=== PATIENT | female | born 1955 | race Caucasian/White ===

== ENCOUNTER 2017-10-26 22:56 | Emergency (ER) | payer BC, SELFPAY ==
[2017-10-26 22:57] VITALS: BP 157/104; PULSE 109; RESP 20; TEMP 36.6; O2SAT 100; BMI 25.7
--- NOTE | 2017-10-26 23:11 | US_ITS ---
STUDY: ABDOMINAL ULTRASOUND - RIGHT UPPER QUADRANT REASON FOR VISIT: Female, 62 years old. Right upper quadrant pain. TECHNIQUE: Ultrasound evaluation of the right upper quadrant was performed with real-time and static callahan-scale imaging. TECHNICAL QUALITY: Adequate. Examination limited by bowel gas. COMPARISON: None. FINDINGS: Liver: The liver measures 16 cm. There is normal echogenicity of the liver. The bile ducts are within normal limits. There is hepatic color flow. The direction of portal flow is hepatopetal. There is no demonstrated mass lesion. Gallbladder: Normal distended gallbladder. The gallbladder wall measures 2.4 mm. There is a positive sonographic Mendoza's sign, according to the histology technologist notes. There is pericholecystic fluid. There are multiple gallstones. Common Bile Duct (C.B.D.): The common bile duct measures 4.4 mm. Pancreas: Normal size of the visualized pancreas. The tail of the pancreas is largely obscured. There is normal echogenicity of the pancreas. There is no demonstrated pancreatic mass or cyst. Right Kidney: Normal size of the right kidney. The right kidney measures 9.9 x 4.3 x 2.8 cm. Normal renal cortex. The right cortex measures 1.2 cm. There is no demonstrated renal mass or cyst. There is no right hydronephrosis. US/Gallbladder IMPRESSION: Multiple gallstones. A small amount of pericholecystic fluid is present and there is a reportedly positive sonographic Mendoza sign, suggesting cystitis. No bile duct dilatation. Electronically Signed: Sacha Hope MD at 0:56 EDT , Service support ,
[2017-10-26 23:25] LABS: Absolute Lymphocyte Count 3.88 X10^3/ul (0.83-4.51); Absolute Neutrophil Count 3.1 X10^3/uL (2.0-7.7); Basophil# 0.06 X10^3/uL; Basophil% 0.8 % (0-1); Eosinophil# 0.17 X10^3/uL; Eosinophils% 2.2 % (0-5); Hematocrit 37.3 % (37-47); Hemoglobin 12.5 g/dl (12.0-15.0); Lymphocyte # 3.88 X10^3/ul (4.0); Lymphocyte % 49.4 % (19-41); Mean Corp Hgb Conc 33.5 g/gl (32-36); Mean Corpuscular Hgb 29.5 pg (27.0-32.0); Mean Platelet Vol. 10.2 fl (6.2-12.0); Monocyte# 0.61 X10^3/uL; Monocyte% 7.8 % (0-10); Neutrophil # 3.13 X10^3/uL (2.7-7.7); Neutrophil % 39.7 % (47-70); Platelet Count 259 K/mm3 (150-450); RBC Distribution Width CV 12.9 % (11.6-14.6); RBC Distribution Width SD 41.6 fl (35.1-43.9); Red Blood Count 4.24 M/mm3 (4.2-5.4); White Blood Count 7.9 K/mm3 (4.4-11.0)
[2017-10-26] MEDS: Ondansetron 4 MG/2 ML Vial IV (23:28)
[2017-10-26 23:31] LABS: POSITIVE COUNT NO; POSITIVE DIFFERENTIAL NO; POSITIVE MORPHOLOGY NO
--- NOTE | 2017-10-26 23:35 | ED.DCSUM_ITS ---
- ER Visit Summary Date of Service: 10/26/17 Chief Complaint: Abdominal pain History of Present Illness: The patient is a 62 F presenting with right upper quadrant abdominal pain which began 2-3 hours ago. Patient states she was eating fried shrimp and began having pain in her right upper quadrant. She states she has been diagnosed with gallstones in the past. She denies nausea, vomiting, diarrhea. Denies fever. Denies other complaints. Physical Examination: Vitals are stable. Patient is afebrile. Alert no acute distress. HEENT exam is unremarkable. Neck is supple. Lungs are clear and equal bilaterally. Heart is regular rate and rhythm. Abdomen is soft right upper quadrant tenderness, no rebound or guarding. Extremities are unremarkable. Skin is warm and dry. No focal neurologic deficit. Remainder of exam is unremarkable. Emergency Department Course and Treatment: Patient is given morphine, Zofran, IV fluids. CBC, chemistries unremarkable. Liver lipase are normal. Ultrasound of gallbladder shows multiple gallstones. A small amount of pericholecystic fluid is present and there is a reportedly positive sonographic Mendoza sign, suggesting cystitis. No bile duct dilatation. Patient states her pain has resolved. Findings were discussed with Dr. Obrien. He will see her for close outpatient follow-up. She is given a prescription for [place]. Advised return to ED for worsening complaints. Disposition: Discharge home Impression: Abdominal pain, cholelithiasis This note was generated with [employer] dictation software. It may contain incorrect words, spelling, and punctuation that were not noted in review of the chart prior to signing ED Disposition - Plan for ED Patient: Chief Complaint: Abd Pain Referrals: Alysa Donovan MD [Primary Care Provider] -
[2017-10-26 23:45] LABS: AST(SGOT) 17 U/L (15-37); Alanine Aminotransfer ALT/SGPT 26 U/L (13-56); Albumin, Serum 4.1 g/dL (3.2-5.0); Alkaline Phosphatase 90 U/L (45-117); Anion Gap 8 (5-15); BUN 15 mg/dL (7-18); Bilirubin, Direct 0.08 mg/dL (0.00-0.30); Calcium,Total 8.7 mg/dL (8.5-10.1); Chloride 110 mmol/L (98-107); Creatinine, Serum 0.72 mg/dL (0.55-1.02); EST Glomerular Filtration Rate 88 mL/min (>60); Est Glom Filt Rate - Afr Amer 107 mL/min (>60); Estimated Creatinine Clearance 61.92 ml/min; Globulin 3.7 g/dL (2.2-4.2); Glucose 96 mg/dL (74-106); Lipase 157 U/L (73-393); Potassium 3.8 mmol/L (3.5-5.1); Protein, Total 7.8 g/dL (6.4-8.2); Sodium Level 144 mmol/L (136-145)
--- NOTE | 2017-10-27 01:44 | ED.DEP ---
ED Disposition - Plan for ED Patient: Chief Complaint: Abd Pain Instructions: ED Abdominal Pain Gallstone Poss Prescriptions: Hydrocodone Bitart/Apap 5-325 [[place] 5/325] 1 tablet PO Q6H PRN PRN 3 Days #12 tablet PRN Reason: Pain Referrals: Alysa Donovan MD [Primary Care Provider] - Carlos Obrien MD [STAFF PHYSICIAN] -
--- NOTE | 2017-10-27 01:47 | DCINST.ED_ITS ---
ED Disposition - Plan for ED Patient: Chief Complaint: Abd Pain Instructions: ED Abdominal Pain Gallstone Poss Prescriptions: Hydrocodone Bitart/Apap 5-325 [[place] 5/325] 1 tablet PO Q6H PRN PRN 3 Days #12 tablet PRN Reason: Pain Referrals: Alysa Donovan MD [Primary Care Provider] - Carlos Obrien MD [STAFF PHYSICIAN] -
[2017-10-27] MEDS: HYDROcodone Bitartrate/Apap 5/325 Tablet PO (01:50)
[2017-10-27 01:54] VITALS: BP 166/80; PULSE 88; RESP 16; O2SAT 100
== END 2017-10-27 01:55 | disposition home or self-care (01) ==
LOC: ED 10-27 00:07
PROVIDERS: Emergency Provider Emergency Medicine; Family Provider Internal Medicine; PCP Internal Medicine
DX: K80.20 Calculus of gallbladder without cholecystitis without obstruction (principal); K21.9 Gastro-esophageal reflux disease without esophagitis; E07.9 Disorder of thyroid, unspecified
CPT/HCPCS: 76705; 80048; 80076; 83690; 85025; 96361; 96374; 96375; 96376; 99283; J7030; J7040; A4216; J2405

== ENCOUNTER 2017-11-02 05:54 | Day surgery (SDC) | payer BC, SELFPAY ==
[2017-11-02] VITALS (9 sets, daily range): BP systolic 114–152; BP diastolic 51–80; PULSE 52–99; RESP 16; TEMP 36.4–37.2; O2SAT 92–99; BMI 24.6
--- NOTE | 2017-11-02 06:08 | EKG12_ITS ---
Test Reason : PRE OP Blood Pressure : / mmHG Vent. Rate : 090 BPM Atrial Rate : 090 BPM P-R Int : 126 ms QRS Dur : 084 ms QT Int : 378 ms P-R-T Axes : 068 041 048 degrees QTc Int : 462 ms Sinus rhythm with frequent Premature ventricular complexes Nonspecific ST abnormality Abnormal ECG Confirmed by HOMER SAMANO, VONDA ([id number]), commissioning editor JULIANA LEE ([id number]) on 11/04/2017 2:57:30 PM Referred By: Rosalee Vann Confirmed By:VONDA CORONEL MD
--- NOTE | 2017-11-02 07:27 | PCM.DC.GB ---
Discharge Diet: No Restrictions Discharge Activity: Return to Normal Activity, May not drive while taking narcotic pain medications. Lifting Restrictions: no lifting greater than 20 pounds for 2 weeks Call your doctor if your incision/area has: Continuous Slow Oozing, Foul Smelling Discharge Call your doctor if you observe: Fever of 101 or Higher Additional Dressing/Incision Instructions:: Leave dressings in place. May get wet in shower. Do not soak - no tub baths/swimming Allergies/Adverse Reactions: Allergies No Known Allergies Allergy (Verified 10/31/17 08:04) Medications to take at Discharge Levothyroxine [Synthroid] 75 mcg PO DAILY 11/02/13 Amitriptyline HCl [Amitriptyline HCl] 10 mg PO DAILY 10/26/17 Pantoprazole Sodium [Protonix] 20 mg PO DAILY 10/26/17 Hydrocodone Bitart/Apap 5-325 [[place] 5/325] 1 tablet PO Q6H PRN PRN 3 Days #12 tablet 10/27/17 Primary Care Physician: Alysa Donovan MD [Primary Care Provider] - Please Follow Up With: Rosalee Vann MD - call When: to be seen in 7-10 days, please call for date and time, thank you
--- NOTE | 2017-11-02 07:29 | PCM.IMDPSTOP ---
Immediate Post-Op Note Date of Procedure: 11/02/17 Primary Surgeon/Physician: Rosalee Vann applications support engineer: NOT,DEFINED Pre-Operative Diagnosis: cholelithiasis, abdominal pain Post-Operative Diagnosis: same Surgery/Procedure Performed:: laparoscopic cholecystectomy with intraoperative cholangiograms Description of Surgical Findings:: intraoperative cholangiograms - Estimated Blood Loss: < 5 ml Specimen's removed: gallbladder and contents Type of Anesthesia:: General ASA Class: ASA2 Mod Systematic Disease - Admit VTE Documentation VTE Present on Admission: Yes VTE Mechan Device Prophylaxis: SCD's
--- NOTE | 2017-11-02 07:30 | GALL_PTH ---
PATIENT: ARNOL JASON LOC: [facility] [place] U#:[id number] AGE/SX: 62/F ROOM: RE11/02/[address]: Dr. Rosalee Vann MD : [id number] BED: DIS: 11/02/2017 SPEC #: [id number] RECD: 11/02/17 10:55 STATUS: KIRILL RELester #: [id number] CORY: 11/02/17 07:[address]: Rosalee Vann DEPT: SURGICAL PATHOLOGY RECD BY: Jethro Walden ENTERED: 11/02/17 11:42 SP TYPE: OLIVIER RASMUSSEN DR: Dr. Alysa Donovan MD Tissues: Gallbladder, NOS Procedures: Surgery Specimen Level III HEADER OPERATION: Laparoscopic, cholecystectomy with intraoperative cholangiograms PRE-OP DIAGNOSIS: Cholecystitis, cholelithiasis without biliary obstruction TISSUE SUBMITTED: Gallbladder MICROSCOPIC DIAGNOSIS Gallbladder: Chronic cholecystitis, cholelithiasis and focal cholesterolosis. SJ:imer 11/03/17 MICROSCOPIC DESCRIPTION Slides are reviewed. GROSS DESCRIPTION Received is one container labeled with the patient's name and designated gallbladder. The specimen consists of a gallbladder measuring 9.5 x 2.5 x 2.5 cm. The external surface is smooth and glistening. Focally, it is granular, hemorrhagic and contains cautery artifact. The lumen of the gallbladder contains greenish mucoid bile and multiple chalky, yellow calculi ranging in size from <0.1 to 1.5 cm in greatest dimension. The mucosa is bile-stained and without any mass lesions. The gallbladder wall averages 0.1 cm in thickness and is free of mass lesions. Invoice Coder sections of the gallbladder and the cystic duct are submitted in one cassette. / AM:imer 11/02/17 TC:3 CPT: 75553
--- NOTE | 2017-11-02 07:55 | RAD_ITS ---
STUDY: INTRAOPERATIVE CHOLANGIOGRAM. REASON FOR EXAM: Female, 62 years old. Laparoscopic cholecystectomy. FLUOROSCOPY TIME (if supplied): (2 seconds) minutes/seconds TECHNIQUE: An intraoperative cholangiogram was performed by the surgeon. A single image was submitted. COMPARISON: None. FINDINGS: The common bile duct is unremarkable. No intraluminal filling defect is seen. There is free flow of contrast into the duodenum. The visualized pancreatic duct is unremarkable. RAD/Cholangiogram/ O R,Initial IMPRESSION: Unremarkable intraoperative cholangiogram. Electronically Signed: Lobito Goodson MD at 10:42 EDT Tel [phone], Service support ,
--- NOTE | 2017-11-02 08:36 | OP.PCM_ITS ---
Report of Operation Date of Procedure: 11/02/17 Pre-Operative Diagnosis: cholelithiasis, abdominal pain Post-Operative Diagnosis: same Surgery/Procedure Performed:: laparoscopic cholecystectomy with intraoperative cholangiograms Description of Surgical Findings:: intraoperative cholangiograms - normal application development liaison: NOT,ALIDA - Radhika Jorge Type of Anesthesia:: General Anesthesiologist: Lopez Langston Specimen's removed: gallbladder and contents Drains: none Estimated Blood Loss (mL): < 5 ml Fluids Replaced: 700 cc RL Description of Procedure: After informed consent was given, the patient was brought to the Operating Room and placed in the supine position. Appropriate time out protocol was followed. The patient was then placed under general endotracheal anesthesia. The abdomen was then prepped with a sterile surgical skin preparation and sterile surgical drapes were placed. The periaumbilical skin fold was grasped with penetrating clamps and the skin and subcutaneous tissues were infiltrated with local anesthetic. A skin incision was then made with a 15 blade scalpel. The anterior abdominal wall was elevated and a Veress needle was carefully inserted into the intraabdominal cavity. It was checked to be in the proper position with a normal saline drop test. A CO2 pneumoperitoneum was then created. Once this was achieved, then the Veress needle was removed and an 11mm trocar was placed in its stead. A 10mm laparoscope was then inserted into the trocar and careful attention was directed to the intraabdominal contents. There was no evidence of injury to any intraabdominal organs from insertion of the Veress needle or the trocar. Under direct visualization, a 5mm subxiphoid trocar and two lateral 5mm right subcostal trocars were placed. The skin and subcutaneous tissues at these sites were infiltrated with local anesthetic prior to placement of these trocars. Attention was then directed to the right upper quadrant of the abdomen. The gallbladder had some omental adehsions that were taken down by sharp dissection. Any hemorrhage was controlled with electrocautery. Graspers were placed in the lateral trocars to grasp the distal aspect of the gallbladder and direct it cephalad and to grasp the gallbladder at Persaud?s pouch and direct it laterally. Dissection then began on the proximal gallbladder continuing down to the area of the triangle of Calot to bluntly dissect out the cystic duct. The neck of the gallbladder was identified and blunt dissection continued to dissect out a segment of the cystic duct. A clip was then placed on the neck of the gallbladder. A small ductotomy was then made. A Ranfac catheter was brought in through a separate skin incision and placed into the cystic duct. An intraoperative cholangiogram was performed under fluoroscopy. The xray revealed no lesions in the common bile duct, arborization of the biliary tree, and good flow into the duodenum. The cholangiograms was read by me as normal. The Ranfac catheter was then removed and two clips were placed proximal to the ductotomy and the cystic duct was then transected. The cystic artery was visualized and bluntly isolated and then two clips were placed proximally and one clip distally and then it was transected between the proximal and distal clips. The gallbladder was then from the liver bed using electrocautery and thus able to be brought out of the umbilical port. It was then forwarded to pathology for analysis. The liver bed was carefully examined. There was no evidence of bile leakage or bleeding. The cystic duct stump and cystic artery stump had their clips intact and there was no evidence of bile leakage or bleeding. The remainder of the abdomen was grossly normal. The CO2 was released and all trocars removed intact. The periumbilical fascia was approximated with a [id number] 0 vicryl suture. All skin incision were closed with 4-0 monocryl in a subdermal fashion. Cavilol and Steristrips were used to reinforce the skin closure. Sterile dressings were applied to all wounds. The patient was extubated and brought to the Recovery Room in stable condition. - Complications none noted - Admit VTE Documentation VTE Present on Admission: Yes VTE Mechan Device Prophylaxis: SCD's
[2017-11-02] MEDS: Bupiv/Epi 0.5% Mpf 30 ML Vial (08:37)
[2017-11-02] MEDS: HYDROcodone Bitartrate/Apap 5/325 Tablet PO (10:31)
[2017-11-02] MEDS: Morphine 4 MG/ML Syringe IV (11:35)
== END 2017-11-02 13:05 | disposition home or self-care (01) ==
LOC: SDC 05:54 → AC 05:57
PROVIDERS: Family Provider Internal Medicine; PCP Internal Medicine; Visit Provider Surgery
PROC: (CPT 47610; principal; 2017-11-02 07:10)
DX: K80.12 Calculus of gallbladder with acute and chronic cholecystitis without obstruction (principal); K21.9 Gastro-esophageal reflux disease without esophagitis; E03.9 Hypothyroidism, unspecified; M79.7 Fibromyalgia; F41.9 Anxiety disorder, unspecified; Z79.899 Other long term (current) drug therapy
CPT/HCPCS: 47563; 74300; 76000; 88304; 93005; J7050; J7120; J2405

== ENCOUNTER 2018-01-07 09:08 | Emergency (ER) | payer BC, SELFPAY ==
[2018-01-07 09:09] VITALS: BP 122/87; PULSE 114; RESP 16; TEMP 37.2; O2SAT 100; BMI 24.5
[2018-01-07 09:14] VITALS: O2SAT 98
--- NOTE | 2018-01-07 09:17 | EKG12_ITS ---
Test Reason : SOB Blood Pressure : / mmHG Vent. Rate : 090 BPM Atrial Rate : 090 BPM P-R Int : 122 ms QRS Dur : 082 ms QT Int : 366 ms P-R-T Axes : 057 037 044 degrees QTc Int : 447 ms Normal sinus rhythm Nonspecific ST abnormality Abnormal ECG Confirmed by LESTER SAMANO, SARA ([id number]), news editor JULIANA LEE ([id number]) on 01/11/2018 2:15:56 PM Referred By: DANIA/JOSE Confirmed By:SARA BATISTA MD
--- NOTE | 2018-01-07 09:32 | ED.DCSUM_ITS ---
- ER Visit Summary Date of Service: 01/07/18 Chief Complaint: [] Chest pain rapid heart beating for 4-6 weeks History of Present Illness: The patient is a 62 F [] she reports about 6 weeks ago she had an uncomplicated cholecystectomy, she reports since that time she has had chest pressure fullness and rapid heart beating it is worse when she exerts herself, she had an episode this morning her heart was racing she had more chest pressure and she came to the emergency department she currently complains of very mild fullness in her chest she is having on the monitor runs of PVCs her vital signs otherwise unremarkable, she indicates she has no history of AL PE or DVT, she has no history of high cholesterol diabetes or hypertension, she believes she had a cardiac stress test in 2010 that was unremarkable Physical Examination: [] She is resting comfortably in the bed her vital signs are within normal range again she will have 3-4 beat runs of PVCs, her HEENT exam is unremarkable her lungs are clear the heart tones are generally regular except as above no murmur the abdomen is soft nontender upper lower extremities unremarkable neurologic she is awake moving all 4 Test Results: [] Emergency Department Course and Treatment: [] Ventral is rather extensive EKG shows a sinus rhythm nothing acute nonspecific changes old EKG pending valuation is pursued Treatment Plan: [] Patient's lab studies are all generally unremarkable see those reports the EKG showed a sinus rhythm nothing acute prior EKG showed similar changes and frequent PVCs, CTA of the chest showed nothing acute see those reports on reevaluation is resting comfortably she is no longer having any PVCs on the monitor I explained the concept of occult cardiac disease, sudden , she understands and she does have a family history with both parents having CAD, I discussed admission for further management and the concept of again of sudden she states she understands she is clearly able to read back to me my concerns family is her in the room however she states she refers outpatient management and she does agree to take aspirin every day and follow with Dr. Bhagat her rayon tester next week and return if her symptoms change or intensified anyway, I have paged Dr. Bhagat will discuss the case with him make him aware of the above and at her request discharge her for outpatient management Speak with Dr. Bhagat he would like a magnesium level checked if this is normal he would like her started on 25 mg Lopressor twice daily he will see her in the office shortly Disposition: [] Home stable refused admission Impression: []chest Pain frequent PVCs This note was generated with [employer] dictation software. It may contain incorrect words, spelling, and punctuation that were not noted in review of the chart prior to signing ED Disposition - Plan for ED Patient: Chief Complaint: Shortness of Breath Instructions: ED Chest Pain Atypical Unkn Cause Referrals: Alysa Donovan MD [Primary Care Provider] - Haseeb Baker MD [STAFF PHYSICIAN] -
--- NOTE | 2018-01-07 09:32 | CT_ITS ---
STUDY: CTA CHEST REASON FOR EXAM: Female, 62 years old. Right-sided shoulder pain for 2 months. Patient has chest pain. RADIATION DOSAGE (If Supplied By Facility): CTDIvol = ( 6.38 ) mGy, DLP = ( 227.73 ) mGycm TECHNIQUE: The examination was performed with the intravenous administration of 75 ml of Isovue 370 contrast material. Post-processing of the angiographic images was performed, with multiplanar reformation and 3D reconstruction. Individualized dose optimization techniques were used for this CT. COMPARISON: Prior comparison studies are not available for review at this time. FINDINGS: Normal enhancement of the main pulmonary artery and right and left pulmonary arteries. Normal enhancement of the bilateral peripheral pulmonary arteries. There is no demonstrated pulmonary embolism. There is atherosclerotic tortuosity of the aortic arch and descending thoracic aorta. There is no demonstrated aortic dissection. Normal heart and pericardium. Normal mediastinum. Normal hilar regions. Normal visualized trachea and bronchi. The lungs are well expanded. Normal pulmonary parenchyma. Normal pleura. Normal chest wall structures. Normal osseous structures. There is a small hiatal hernia. CT/CTA Chest W/WO Contrast IMPRESSION: No CTA demonstrated pulmonary embolism or arterial dissection. Electronically Signed: Verenice Cruz MD at 11:35 EDT , Service support ,
[2018-01-07 10:05] LABS: Absolute Lymphocyte Count 3.58 X10^3/ul (0.83-4.51); Absolute Neutrophil Count 3.1 X10^3/uL (2.0-7.7); Basophil# 0.05 X10^3/uL; Basophil% 0.7 % (0-1); Eosinophil# 0.09 X10^3/uL; Eosinophils% 1.2 % (0-5); Hematocrit 39.7 % (37-47); Hemoglobin 13.6 g/dl (12.0-15.0); Lymphocyte # 3.58 X10^3/ul (4.0); Mean Corp Hgb Conc 34.3 g/gl (32-36); Mean Corpuscular Hgb 29.4 pg (27.0-32.0); Mean Corpuscular Volume 85.7 fL (81-99); Mean Platelet Vol. 10.3 fl (6.2-12.0); Monocyte# 0.64 X10^3/uL; Monocyte% 8.6 % (0-10); Neutrophil # 3.09 X10^3/uL (2.7-7.7); Neutrophil % 41.4 % (47-70); Platelet Count 298 K/mm3 (150-450); RBC Distribution Width SD 40.9 fl (35.1-43.9); Red Blood Count 4.63 M/mm3 (4.2-5.4); White Blood Count 7.5 K/mm3 (4.4-11.0)
[2018-01-07 10:06] LABS: POSITIVE COUNT NO; POSITIVE DIFFERENTIAL NO; POSITIVE MORPHOLOGY NO
[2018-01-07 10:09] VITALS: BP 148/64; PULSE 74; RESP 16; O2SAT 97
[2018-01-07 10:36] LABS: Anion Gap 11 (5-15); BUN 17 mg/dL (7-18); Calcium,Total 9.3 mg/dL (8.5-10.1); Chloride 107 mmol/L (98-107); Creatinine, Serum 0.89 mg/dL (0.55-1.02); EST Glomerular Filtration Rate 68 mL/min (>60); Est Glom Filt Rate - Afr Amer 82 mL/min (>60); Estimated Creatinine Clearance 50.09 ml/min; Glucose 93 mg/dL (74-106); Sodium Level 142 mmol/L (136-145)
[2018-01-07 10:42] LABS: BNP,B-Type NATRIURETIC PEPTIDE 15.4 pg/mL (0-100)
--- NOTE | 2018-01-07 12:08 | ED.DEP ---
ED Disposition - Plan for ED Patient: Chief Complaint: Shortness of Breath Instructions: ED Chest Pain Atypical Unkn Cause Referrals: Alysa Donovan MD [Primary Care Provider] - Haseeb Baker MD [STAFF PHYSICIAN] -
[2018-01-07 12:15] VITALS: BP 140/64; PULSE 80; RESP 16; O2SAT 97
--- NOTE | 2018-01-07 12:30 | ED.DEP ---
ED Disposition - Plan for ED Patient: Chief Complaint: Shortness of Breath Instructions: ED Chest Pain Atypical Unkn Cause Prescriptions: Metoprolol Tartrate [Lopressor (Beta Shikha)] 25 mg PO BID #20 tab Referrals: Alysa Donovan MD [Primary Care Provider] - Haseeb Baker MD [STAFF PHYSICIAN] -
[2018-01-07 13:18] LABS: Magnesium 2.2 mg/dL (1.6-2.6)
[2018-01-07 13:21] VITALS: BP 152/69; PULSE 80; RESP 20; O2SAT 98
[2018-01-07] MEDS: Metoprolol Tartrate 25 MG Tablet PO (13:59)
[2018-01-07 14:02] VITALS: BP 141/68; PULSE 80; RESP 16; O2SAT 97
== END 2018-01-07 14:10 | disposition home or self-care (01) ==
LOC: ED 09:44
PROVIDERS: Emergency Provider Emergency Medicine; Family Provider Internal Medicine; PCP Internal Medicine
DX: I49.3 Ventricular premature depolarization (principal); R07.9 Chest pain, unspecified; Z82.49 Family history of ischemic heart disease and other diseases of the circulatory system
CPT/HCPCS: 71275; 80048; 83735; 83880; 84484; 85025; 93005; 96360; 96361; 99285; J7030; J7040; Q9967; A4216

== ENCOUNTER → 2018-01-31 06:36 | Outpatient (CLI) | payer BC, SELFPAY ==
--- NOTE | 2018-01-31 12:17 | STRESSREP ---
Stress Test Report Date: 01/31/2018 Procedure: Exercise tolerance test/imaging study Indications: Pain Consent: Per the patient Procedure: The patient exercised on a Gene protocol for 6 minutes completing Stage II achieving a peak heart rate of 157 bpm (98 % predicted maximal heart rate) with a peak blood pressure 192/80 mmHg and a peak MET capacity of 7 METs. The baseline ECG demonstrated normal sinus rhythm. The peak exercise ECG demonstrated approximately [address] segment depression in leads II, III, aVF, and V4 through V6. There was a rare PVC during exercise and recovery. The functional capacity was considered average. There was no complaint of chest discomfort during exercise or recovery. The examination was discontinued secondary to dyspnea. Impression: 1. Technically adequate (percent predicted maximal heart rate greater than 85%) exercise tolerance test 2. Peak exercise ECG demonstrated approximately [address] segment depression in leads II, III, aVF, and V4 through V6 3. There was a rare PVC during exercise and recovery. 4. Nuclear images pending Myocardial perfusion imaging study: Technique: The patient was injected with 10.7 mCi of technetium 99m Cardiolite and subsequently rest SPECT Cardiolite nuclear imaging was obtained in the horizontal long, vertical long, and short axis views. The patient exercised on a Gene protocol for 6 minutes completing Stage II achieving a peak heart rate of 157 bpm (98 % predicted maximal heart rate) with a peak blood pressure 192/80 mmHg and a peak MET capacity of 7 METs. The patient was injected with 34 mCi of technetium 99m Cardiolite and subsequently stress SPECT Cardiolite nuclear imaging was obtained in the horizontal long, vertical long, and short axis views. A gated Cardiolite study at peak stress was obtained. Interpretation: Rest and stress SPECT Cardiolite nuclear imaging status post realignment, normalization, and attenuation correction, demonstrates the appearance of relative uniform tracer uptake and myocardial perfusion appearing within normal limits. There is end systolic thickening and brightening. The gated Cardiolite study demonstrates myocardial thickening and inward wall motion. The reported LVEF is 72 %. Impression: 1. Rest and stress SPECT Cardiolite nuclear imaging demonstrate relative uniform tracer uptake and myocardial perfusion appearing within normal limits. 2. The gated Cardiolite study reports an LVEF of 72 %. This note was generated with [employer] software. It may contain incorrect words, spelling, and punctuation that were not noted in checking the note before signing.
--- NOTE | 2018-01-31 12:24 | STRESSREP_ITS ---
Stress Test Report Date: 01/31/2018 Procedure: Exercise tolerance test/imaging study Indications: Pain Consent: Per the patient Procedure: The patient exercised on a Gene protocol for 6 minutes completing Stage II achieving a peak heart rate of 157 bpm (98 % predicted maximal heart rate) with a peak blood pressure 192/80 mmHg and a peak MET capacity of 7 METs. The baseline ECG demonstrated normal sinus rhythm. The peak exercise ECG demonstrated approximately [address] segment depression in leads II , III, aVF, and V4 through V6. There was a rare PVC during exercise and recovery. The functional capacity was considered average. There was no complaint of chest discomfort during exercise or recovery. The examination was discontinued secondary to dyspnea. Impression: 1. Technically adequate (percent predicted maximal heart rate greater than 85% ) exercise tolerance test 2. Peak exercise ECG demonstrated approximately [address] segment depression in leads II, III, aVF, and V4 through V6 3. There was a rare PVC during exercise and recovery. 4. Nuclear images pending Myocardial perfusion imaging study: Technique: The patient was injected with 10.7 mCi of technetium 99m Cardiolite and subsequently rest SPECT Cardiolite nuclear imaging was obtained in the horizontal long, vertical long, and short axis views. The patient exercised on a Gene protocol for 6 minutes completing Stage II achieving a peak heart rate of 157 bpm (98 % predicted maximal heart rate) with a peak blood pressure 192/ 80 mmHg and a peak MET capacity of 7 METs. The patient was injected with 34 mCi of technetium 99m Cardiolite and subsequently stress SPECT Cardiolite nuclear imaging was obtained in the horizontal long, vertical long, and short axis views. A gated Cardiolite study at peak stress was obtained. Interpretation: Rest and stress SPECT Cardiolite nuclear imaging status post realignment, normalization, and attenuation correction, demonstrates the appearance of relative uniform tracer uptake and myocardial perfusion appearing within normal limits. There is end systolic thickening and brightening. The gated Cardiolite study demonstrates myocardial thickening and inward wall motion. The reported LVEF is 72 %. Impression: 1. Rest and stress SPECT Cardiolite nuclear imaging demonstrate relative uniform tracer uptake and myocardial perfusion appearing within normal limits. 2. The gated Cardiolite study reports an LVEF of 72 %. This note was generated with [employer] software. It may contain incorrect words, spelling, and punctuation that were not noted in checking the note before signing.
== END ==
PROVIDERS: Family Provider Internal Medicine; PCP Internal Medicine; Visit Provider Internal Medicine Cardiovascular Disease
DX: I25.10 Atherosclerotic heart disease of native coronary artery without angina pectoris (principal)
CPT/HCPCS: 78452; 93017; A9500; A4216

== ENCOUNTER 2018-09-04 00:22 | Emergency (ER) | payer BC, SELFPAY ==
[2018-09-04 00:22] VITALS: BP 193/91; PULSE 94; RESP 16; TEMP 36.4; O2SAT 99; BMI 26.3
--- NOTE | 2018-09-04 00:41 | EKG12_ITS ---
Test Reason : HYPERTENSION Blood Pressure : / mmHG Vent. Rate : 080 BPM Atrial Rate : 080 BPM P-R Int : 132 ms QRS Dur : 080 ms QT Int : 390 ms P-R-T Axes : 043 012 009 degrees QTc Int : 449 ms Normal sinus rhythm Cannot rule out Inferior infarct , age undetermined Abnormal ECG Confirmed by HOMER SAMANO, VONDA ([id number]), content editor ERICK BOJORQUEZ ([id number]) on 09/05/2018 1:09:04 PM Referred By: DANIA Confirmed By:VONDA CORONEL MD
--- NOTE | 2018-09-04 00:41 | CT_ITS ---
HISTORY: STRESS LATELY, PT NOTICED ELEVATED BP WITH BLURRED VISION AND EYE PAIN TECHNIQUE: Multiple axial images were obtained of the brain without intravenous contrast. A radiation dose optimization technique was used for this scan. IV Contrast dosage and agent: None. COMPARISON: 10/21/2013 FINDINGS: With comparison previous, no significant change. Normal ventricles. Normal callahan-white matter differentiation. No intracranial mass, hemorrhage, or acute disease. Posterior fossa structures are unremarkable. No suspicious extra-axial fluid collection. Carotid and vertebrobasilar atherosclerotic calcifications. As visualized, mastoids and paranasal sinuses appear clear. CT/Brain/Head without Contrast IMPRESSION: 1. No hemorrhage or acute disease. No significant change. 2. Carotid and vertebrobasilar atherosclerotic calcifications. Otherwise negative exam. Individualized dose optimization techniques were used for this CT. at 0132 Reported and signed by: Edgar Ayers MD Electronically Signed: Edgar Ayers, at 1:31 EST Tel , Service support ,
[2018-09-04] MEDS: hydrOXYzine PAM 25 MG Capsule PO (01:08)
[2018-09-04] MEDS: 0.9% Normal Saline 1,000 ML 150 ML IV (01:39)
[2018-09-04 01:46] LABS: Absolute Lymphocyte Count 3.13 X10^3/ul (0.83-4.51); Absolute Neutrophil Count 4.6 X10^3/uL (2.0-7.7); Basophil# 0.05 X10^3/uL; Basophil% 0.6 % (0-1); Eosinophil# 0.15 X10^3/uL; Eosinophils% 1.7 % (0-5); Hematocrit 38.9 % (37-47); Hemoglobin 13.4 g/dl (12.0-15.0); Lymphocyte # 3.13 X10^3/ul (4.0); Lymphocyte % 35.9 % (19-41); Mean Corp Hgb Conc 34.4 g/gl (32-36); Mean Corpuscular Hgb 30.3 pg (27.0-32.0); Mean Platelet Vol. 10.5 fl (6.2-12.0); Monocyte# 0.77 X10^3/uL; Monocyte% 8.8 % (0-10); Neutrophil % 52.9 % (47-70); Platelet Count 261 K/mm3 (150-450); RBC Distribution Width CV 12.4 % (11.6-14.6); RBC Distribution Width SD 39.5 fl (35.1-43.9); Red Blood Count 4.42 M/mm3 (4.2-5.4); White Blood Count 8.7 K/mm3 (4.4-11.0)
[2018-09-04 01:47] LABS: POSITIVE COUNT NO; POSITIVE DIFFERENTIAL NO; POSITIVE MORPHOLOGY NO
[2018-09-04 02:03] LABS: Anion Gap 11 (5-15); BUN 12 mg/dL (7-18); BUN/Creat Ratio 15.8 RATIO (10-20); Calcium,Total 8.8 mg/dL (8.5-10.1); Chloride 110 mmol/L (98-107); Creatinine, Serum 0.76 mg/dL (0.55-1.02); EST Glomerular Filtration Rate 82 mL/min (>60); Est Glom Filt Rate - Afr Amer 99 mL/min (>60); Estimated Creatinine Clearance 57.92 ml/min; Glucose 99 mg/dL (74-106); Potassium 3.9 mmol/L (3.5-5.1); Sodium Level 143 mmol/L (136-145)
[2018-09-04 02:28] VITALS: BP 152/82; PULSE 76; RESP 15; O2SAT 97
--- NOTE | 2018-09-04 02:40 | ED.DCSUM_ITS ---
- ER Visit Summary Date of Service: 09/04/18 Chief Complaint: [High blood pressure] History of Present Illness: The patient is a 63 F [presents the emergency department complaint of high blood pressure today. Patient states that she is been under a lot of stress over the last week as her father was dying. Patient states that her father finally tonight. Patient checked her blood pressure at home it was 187/103. Patient states that over the last week she is had some intermittent blurred vision and she is been feeling dizzy at times. She feels pressure in her head. Patient states she is just not been sleeping very much over this last week. Patient does not have a history of hypertension. Patient states that she typically is very anxious. Patient does states she has hypothyroidism.] Physical Examination: [HEENT-PERRLA, EOMI. Cranial nerves II through XII grossly intact. TMs clear. Mucous membranes moist. No adenopathy. Cardiovascular-regular rate and rhythm without murmur or ectopy Lungs-clear to auscultation, chest wall stable without crepitus or subcu emphysema Abdomen-normoactive bowel sounds, soft, nontender, no rebound or rigidity, no peritoneal signs. Neuro tolh-[id number]-usci and heel judd testing within normal limits, negative Romberg, negative pronator drift, fundi benign Extremities-intact ?4, normal range of motion, normal pulses, atraumatic] Test Results: [CBC with differential obtained showed a white count of 8.7, hemoglobin 13, hematocrit 39, placed 261. Chemistries unremarkable. Troponin is less than 0.015. EKG showed sinus rhythm with a ventricular rate of [address] scan of the brain without contrast showed nothing acute.] Emergency Department Course and Treatment: [Patient was given Vistaril 25 mg p.o. as she did not want a benzodiazepine initially. ] Treatment Plan: [Patient will be given a prescription for Xanax for home. Patient states she has had Ativan before but she does not like the way it makes her feel. Patient also states she has had Xanax before just makes her really tired so she wants the smallest dose possible. Repeat blood pressure in the emergency department without any treatment was 152/82.] Disposition: [Discharged home in stable condition. Patient advised to follow-up with her eye doctor within next 3-5 days.] Impression: [Hypertension Stress reaction Sleep deprivation] This note was generated with [employer] dictation software. It may contain incorrect words, spelling, and punctuation that were not noted in review of the chart prior to signing ED Disposition - Plan for ED Patient: Chief Complaint: Hypertension Referrals: Alysa Donovan MD [Primary Care Provider] -
--- NOTE | 2018-09-04 02:40 | ED.DEP ---
ED Disposition - Plan for ED Patient: Chief Complaint: Hypertension Instructions: ED Hypertension Poss Prescriptions: ALPRAZolam [Xanax] 0.125 mg PO TID PRN #15 tab PRN Reason: Anxiety Referrals: Alysa Donovan MD [Primary Care Provider] - 5-7 Days
[2018-09-04] MEDS: ALPRAZolam 0.25 MG Tablet 0.125 MG PO (02:57)
[2018-09-04 02:58] VITALS: BP 143/75; PULSE 73; RESP 16; O2SAT 97
--- OUTSIDE RECORDS SUMMARY | 2018-11-06 12:54 | XMS RPT_ITS ---
:1955 Author Organization OHIP Care Team Providers Name Role Phone RAJEEV JAMESON Attending Unavailable KATHRYN FLORES (WAFER BATTER MIXER) Referring Unavailable OLIVIA SÁNCHEZ Attending Unavailable RAJEEV JAMESON Attending Unavailable MARYLOU FERMIN (PA) Attending Unavailable ROSALEE VANN Attending Unavailable HASEEB TRUJILLO Attending Unavailable CASSANDRA, HASEEB E Referring Unavailable CASSANDRA, HASEEB E Attending Unavailable CASSANDRA, HASEEB E Referring Unavailable GANTA, RAJEEV Referring Unavailable OLIVIA SÁNCHEZ Referring Unavailable Ganta, Rajeev Primary Care Unavailable Keisha Meza Attending Unavailable Yudy Rivasson Attending Unavailable Ganta, Rajeev Primary Care Unavailable Rosalee Vann Attending Unavailable Rosalee Vann Referring Unavailable Ganta, Rajeev Primary Care Unavailable DonnaJose altman Attending Unavailable Rosalee Vann Referring Unavailable Ganta, Rajeev Primary Care Unavailable Morales Melendez Attending Unavailable [place], Haseeb Attending Unavailable [place], Haseeb Referring Unavailable Ganta, Rajeev Primary Care Unavailable Surjit Batista Attending Unavailable Cassandra, Haseeb Referring Unavailable PROBLEMS PROBLEMS DATE TYPE CONDITION / CODE ATTENDING STATUS SOURCE 06/15/2018 Active Encounter for NA Active [place] [facility] for malignant neoplasm [place] of breast / Repository Z12.31(ICD-10) 09/20/2017 Active Mixed hyperlipidemia / NA Active [place] E78.2(ICD-10) [facility] [place] Repository 11/18/2014 Active 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 Repository without angina pectoris / I25.10(ICD-10) 11/02/2017 Unknown Z98.890 - Other Rosalee Vann Active [place] specified Community postprocedural [facility] / Z98.890(ICD-10) Repository 12/19/2017 Unknown R94.31 - Abnormal Donna, Leona Active [place] electro[facility]ogram Community [ECG] [EKG] / Hospital R94.31(ICD-10) Repository 10/27/2017 Unknown R10.11 - Right upper [place], Active [place] quadrant pain / [place] [facility] R10.11(ICD-10) Hospital Repository 10/05/2017 Active Unknown / UNK(Unknown) BRIAN Active [facility] Repository PROCEDURES PROCEDURES No Procedure Records FoundRESULTS RESULTS 12 LEAD ELECTROCARDIOGRAM Observed: 09/05/2018 Status: F Source: [place] 1:09 PM [facility] REPOSITORY [facility] Cardiovascular Services [address] [place] [address] 12 Lead EKG 09/04/18 0049 MR#: [id number] Acct: [id number] Name: ARNOL JASON Rep #: [id number] : 1955 63 From: Jose Thompson MD Attending Dr: Status: DEP ER Ordering Dr: Keisha Meza DO Date: 09/04/18 Location: ED Sex: F C Admitted: Test Reason : HYPERTENSION Blood Pressure : / mmHG Vent. Rate : 080 BPM Atrial Rate : 080 BPM P-R Int : 132 ms QRS Dur : 080 ms QT Int : 390 ms P-R-T Axes : 043 012 009 degrees QTc Int : 449 ms Normal sinus rhythm Cannot rule out Inferior infarct , age undetermined Abnormal ECG Confirmed by JOSE THOMPSON MD ([id number]), television news video editor ERICK BOJORQUEZ ([id number]) on 09/05/2018 1:09:04 PM Referred By: DANIA Confirmed By:JSOE THOMPSON MD 09/05/18 1309 Date Jose Thompson MD CC: Rajeev Jameson MD; Keisha Meza DO Signed DISCHARGE INSTRUCTION Observed: 09/04/2018 Status: F Source: [place] 2:42 AM [facility] REPOSITORY [facility] Medical Records Department [address] [place] [address] Discharge Instruction 09/04/18 0240 MR#: [id number] Acct: [id number] Name: ARNOL JASON Rep #: [id number] : 1955 63 From: Keisha Meza DO PCP: Rajeev Jameson MD Status: REG ER ED Disposition - Plan for ED Patient: Chief Complaint: Hypertension Instructions: ED Hypertension Poss Prescriptions: ALPRAZolam [Xanax] 0.125 mg PO TID PRN #15 tab PRN Reason: Anxiety Referrals: Rajeev Jameson MD [Primary Care Provider] - 5-7 Days What to do if you have Problems For any increased pain, shortness of breath, bleeding, nausea or vomiting, chest pain, or any unexpected problems, contact your Primary Care Provider. Call [facility] ([phone]) or report to the closest Emergency Room. Call 911 if necessary. 09/04/18 0242 <Electronically signed by Keisha Meza DO> Date Keisha Meza DO Cosigner Signature (If Indicated): Date CC: Rajeev Jameson MD EMERGENCY DEPARTMENT Observed: 09/04/2018 Status: F Source: [place] SUMMARY 2:40 AM [facility] REPOSITORY [facility] Medical Records Department [address] [place] [address] Emergency Department Summary 09/04/18 0237 MR#: [id number] Acct: [id number] Name: ARNOL JASON Rep #: [id number] : 1955 63 From: Keisha Meza DO PCP: Rajeev Jameson MD Status: REG ER - ER Visit Summary Date of Service: 09/04/18 Chief Complaint: [High blood pressure] History of Present Illness: The patient is a 63 F [presents the emergency department complaint of high blood pressure today. Patient states that she is been under a lot of stress over the last week as her father was dying. Patient states that her father finally tonight. Patient checked her blood pressure at home it was 187/103. Patient states that over the last week she is had some intermittent blurred vision and she is been feeling dizzy at times. She feels pressure in her head. Patient states she is just not been sleeping very much over this last week. Patient does not have a history of hypertension. Patient states that she typically is very anxious. Patient does states she has hypothyroidism.] Physical Examination: [HEENT-PERRLA, EOMI. Cranial nerves II through XII grossly intact. TMs clear. Mucous membranes moist. No adenopathy. Cardiovascular-regular rate and rhythm without murmur or ectopy Lungs-clear to auscultation, chest wall stable without crepitus or subcu emphysema Abdomen-normoactive bowel sounds, soft, nontender, no rebound or rigidity, no peritoneal signs. Neuro ikrg-wojjwh-cmns and heel judd testing within normal limits, negative Romberg, negative pronator drift, fundi benign Extremities-intact 4, normal range of motion, normal pulses, atraumatic] Test Results: [CBC with differential obtained showed a white count of 8.7, hemoglobin 13, hematocrit 39, placed 261. Chemistries unremarkable. Troponin is less than 0.015. EKG showed sinus rhythm with a ventricular rate of [address] scan of the brain without contrast showed nothing acute.] Emergency Department Course and Treatment: [Patient was given Vistaril 25 mg p.o. as she did not want a benzodiazepine initially. ] Treatment Plan: [Patient will be given a prescription for Xanax for home. Patient states she has had Ativan before but she does not like the way it makes her feel. Patient also states she has had Xanax before just makes her really tired so she wants the smallest dose possible. Repeat blood pressure in the emergency department without any treatment was 152/82.] Disposition: [Discharged home in stable condition. Patient advised to follow-up with her eye doctor within next 3-5 days.] Impression: [Hypertension Stress reaction Sleep deprivation] This note was generated with [employer] dictation software. It may contain incorrect words, spelling, and punctuation that were not noted in review of the chart prior to signing ED Disposition - Plan for ED Patient: Chief Complaint: Hypertension Referrals: Rajeev Jameson MD [Primary Care Provider] - What to do if you have Problems For any increased pain, shortness of breath, bleeding, nausea or vomiting, chest pain, or any unexpected problems, contact your Primary Care Provider. Call [facility] ([phone]) or report to the closest Emergency Room. Call 911 if necessary. 09/04/18 0240 <Electronically signed by Remus Ungur DO> Date Remus Ungur DO Cosigner Signature (If Indicated): Date CC: Rajeev Jameson MD CBC W/DIFF, AUTOMATED Collected: 09/04/2018 Status: F Source: [place] 1:39 AM [facility] REPOSITORY TYPE CODE TESTS RESULT OUT OF RANGE REFERENCE UNITS LAB L100.1000 4.4-11.0 K/mm3 Normal WBC 8.7 LAB L100.1200 4.2-5.4 M/mm3 Normal RBC 4.42 LAB L100.1300 12.0-15.0 g/dl Normal HGB 13.4 LAB L100.1400 37-47 % Normal HCT 38.9 LAB L100.1500 81-99 fL Normal MCV 88.0 LAB L100.1600 27.0-32.0 pg Normal MCH 30.3 LAB L100.1700 32-36 g/gl Normal MCHC 34.4 LAB L100.1810 11.6-14.6 % Normal RDW CV 12.4 LAB L100.1820 35.1-43.9 fl Normal RDW SD 39.5 LAB L100.1900 150-450 K/mm3 Normal PLT 261 LAB L100.2000 6.2-12.0 fl Normal MPV 10.5 LAB L100.2100 47-70 % Normal NEUT% 52.9 LAB L100.2200 19-41 % Normal LY% 35.9 LAB L100.2300 0-10 % Normal MONO% 8.8 LAB L100.2400 0-5 % Normal EO% 1.7 LAB L100.2500 0-1 % Normal BASO% 0.6 LAB L100.2550 0.0-0.9 % Normal IM GRAN % 0.100 Result Comment: IG% - Immature Granulocytes (promyelocytes, myelocytes and metamyelocytes) > 1% indicates that a LEFT SHIFT is Present. LAB L100.2620 2.0-7.7 X10 3/uL Normal Absolute Neut 4.6 LAB L100.2720 0.83-4.51 X10 3/ul Normal Absolute Lymph 3.13 Performed By: #### L100.0100 #### [facility] [address] [place], [address] BASIC METABOLIC Collected: 09/04/2018 Status: F Source: [place] PROFILE (BMP) 1:39 AM [facility] REPOSITORY TYPE CODE TESTS RESULT OUT OF RANGE REFERENCE UNITS LAB L501.0100 74-106 mg/dL Normal GLU 99 Result Comment: Please note revised GLUCOSE reference range effective 2017. LAB L501.1000 7-18 mg/dL Normal BUN 12 LAB L501.1100 0.55-1.02 mg/dL Normal CREAT,SERUM 0.76 Result Comment: The validity of the calculated GFR AND GFRAA in patients over 70 years has not been determined. Clinical correlation is essential. LAB L501.1110 >60 mL/min Normal EST GFR 82 Result Comment: Non- GFR Calc LAB L501.1115 >60 mL/min Normal EST GFR - AA 99 Result Comment: GFR Calc LAB L501.1255 ml/min Normal Estimated CRCL 57.92 LAB L501.1300 10-20 RATIO Normal BUN/CRE 15.8 LAB L501.2200 8.5-10 mg/dL Normal .1 CA 8.8 LAB L501.5300 136-14 mmol/L Normal 5 NA 143 LAB L501.5600 3.5-5. mmol/L Normal 1 K 3.9 Result Comment: Slight Hemolysis, Result may be falsely increased. LAB L501.5900 98-107 mmol/L High CL 110 LAB L501.6100 21.0-32.0 mmol/L Normal CO2 22.0 LAB L501.6200 5-15 Normal GAP 11 Performed By: #### L500.2500, L501.4010 #### [facility] [address] [place], [address] TROPONIN-I Collected: 09/04/2018 Status: F Source: [place] 1:39 AM [facility] REPOSITORY TYPE CODE TESTS RESULT OUT OF RANGE REFERENCE UNITS LAB L501.4010 <0.045 ng/mL Normal < 0.015 TROPONIN-I Result Comment: TROPONIN-I EXPECTED VALUES <0.045 Negative 0.045 - 0.590 Consistent with Cardiac Damage > OR = 0.600 Critical Value Not every elevated troponin is indicative of NM. These values should be used with clinical judgement in examining the patient's clinical picture for diagnosis. To establish a diagnosis of NM versus myocardial injury, there must be a demonstrated rise and/or fall in the troponin values, in addition to ischemic symptoms, EKG changes, new regional wall motion abnormality, and/or angiographical evidence. PLEASE NOTE: REFERENCE RANGES EDITED 17 Performed By: #### L500.2500, L501.4010 #### [facility] [address] [facility], [address] BRAIN/HEAD WITHOUT Observed: 09/04/2018 Status: F Source: [place] CONTRAST 12:42 AM [facility] REPOSITORY [facility] Imaging Services [address] [place] [address] Brain/Head without Contrast MR#: [id number] Acct: [id number] Name: ARNOL JASON Rep #: [id number] : 1955 F 63 From: Edgar Ayers MD PCP: Rajeev Jameson MD Status: REG ER Study: Brain/Head without Contrast Date of Exam: 09/04/18 Exam# [id number] Ordering Dr: Keisha Meza DO HISTORY: STRESS LATELY, PT NOTICED ELEVATED BP WITH BLURRED VISION AND EYE PAIN TECHNIQUE: Multiple axial images were obtained of the brain without intravenous contrast. A radiation dose optimization technique was used for this scan. IV Contrast dosage and agent: None. COMPARISON: 10/21/2013 FINDINGS: With comparison previous, no significant change. Normal ventricles. Normal callahan-white matter differentiation. No intracranial mass, hemorrhage, or acute disease. Posterior fossa structures are unremarkable. No suspicious extra-axial fluid collection. Carotid and vertebrobasilar atherosclerotic calcifications. As visualized, mastoids and paranasal sinuses appear clear. CT/Brain/Head without Contrast IMPRESSION: 1. No hemorrhage or acute disease. No significant change. 2. Carotid and vertebrobasilar atherosclerotic calcifications. Otherwise negative exam. Individualized dose optimization techniques were used for this CT. at 0132 Reported and signed by: Edgar Ayers MD Electronically Signed: Edgar Ayers, at 1:31 EST Tel , Service support , CC: Rajeev Jameson MD; Keisha Meza DO Handle Rounder Operator: Signed CNCO Observed: 06/15/2018 Status: COMPLETED Source: [place] 11:47 AM [facility] REPOSITORY HNO ID: [id number] Author: Mammography Coordinator Service: (none) Author Type: Physician Type: Letter Filed: 06/19/2018 11:31 PM Note Text: June 15, 2018 PID: [id number] Arnol Jason [address] [place] [address] Dear Ms. Jason, We are pleased to inform you that the results of your recent breast imaging exam on 06/15/2018 are normal. Early detection of cancer is very important. We also understand recommendations regarding breast cancer screening are controversial. Please discuss with your primary care provider which strategy is best for you and whether a mammogram is right for you. Your imaging studies and report will be kept on file at [facility] as part of your permanent medical record and are available for your continuing care. Thank you for allowing us to help in meeting your health care needs. Sincerely, Dr. Calderon Interpreting Radiologist [facility] (Normal over 40) [facility] SCREENING Observed: 06/15/2018 Status: F Source: [place] 10:20 AM [facility] REPOSITORY * * *Final Report* * * DATE OF EXAM: Jun 15 2018 10:20AM [facility] 0581 - [facility] SCREENING / PROCEDURE REASON: Encounter for screening mammogram for breast cancer * * * * Physician Interpretation * * * * RESULT: #[id number] - [facility] SCREENING BILATERAL DIGITAL SCREENING MAMMOGRAM WITH CAD: 06/15/2018 HISTORY: Encounter For Screening Mammogram For Breast Cancer /Screening Mammogram - patient reports NO breast symptoms /Priors available for comparison. RESULT: TECHNIQUE: The study was acquired using full field digital technology and interpreted from soft copy. Current study was also evaluated with a Computer Aided Detection (CAD). Comparison is made to exams dated: 06/14/2017 mammogram, 03/03/2016 mammogram - [facility], 11/07/2014 mammogram, and 05/09/2014 mammogram - [facility]. There are scattered fibroglandular elements in both breasts. No significant masses, calcifications, or other findings are seen in either breast. There has been no significant interval change. IMPRESSION: NEGATIVE There is no mammographic evidence of malignancy. A 1 year screening mammogram is recommended. Iesha jackson/gisela:06/15/2018 11:47:38 Heating Element Repairer: Annia DIETZ)([place]), [facility] letter sent: Normal over 40 Mammogram BI-RADS: 1 Negative Multiple national specialty organizations have released breast cancer screening guidelines for women at average risk for developing breast cancer - guidelines that are based on both evidence and opinion, yet differ on when to start and how often to screen for breast cancer. With representation from Breast Imaging, Internal Medicine, Women's Health, Family Medicine, and Medical/Surgical Oncology, the [facility] has carefully reviewed the data and reached the following consensus: 1) All women should engage in shared decision-making with their providers to decide when to start and how often to screen; 2) All women should have the opportunity to start screening mammography at age 40; 3) For women ages 45-55, we recommend annual screening mammograms; 4) For women ages 55 and over, we support both the transition from an annual to a biennial interval if this aligns more with patient's values and preferences, or continuation with annual screening; 5) All women should discuss with their providers when to stop screening mammograms. Handle Rounder Operator: Gisela Transcribe Date/Time: Jun 15 2018 10:09A Dictated by: IESHA CALDERON MD This examination was interpreted and the report reviewed and electronically signed by: IESHA CALDERON MD on Jun 15 2018 11:47AM EST [id number] LIPID PANEL, BASIC Collected: 04/22/2018 Status: F Source: [place] 11:25 AM [facility] REPOS[facility] TYPE CODE TESTS RESULT OUT OF REFERENCE UNITS RANGE LAB CHOL <200 mg/dL Cholesterol 150 Result Comment: <200 mg/dL, Desirable 200-239 mg/dL, Borderline high >239 mg/dL, High LAB TRIGLY <150 mg/dL Triglyceride High 182 Result Comment: <150 mg/dL, Normal 150-199 mg/dL, Borderline high 200-499 mg/dL, High >499 mg/dL, Very high LAB HDL >39 mg/dL HDL-Cholesterol 45 Result Comment: 40-59 mg/dL, Acceptable >59 mg/dL, High: Negative risk factor for coronary heart disease <40 mg/dL, Low: Positive risk factor for coronary heart disease LAB LDL <100 mg/dL LDL-Cholesterol 69 Result Comment: <100 mg/dL, Optimal 100-129 mg/dL, Near optimal/above optimal 130-159 mg/dL, Borderline high 160-189 mg/dL, High >189 mg/dL, Very high Secondary prevention optimal LDL Cholesterol levels are recommended to be < 70 mg/dL LAB NONHDL <130 mg/dL Non HDL Cholesterol 105 Result Comment: <130 mg/dL, Optimal 130-159 mg/dL, Near optimal/above optimal 160-189 mg/dL, Borderline high 190-219 mg/dL, High >219 mg/dL, Very high Secondary prevention optimal non HDL Cholesterol levels are recommended to be < 100 mg/dL LAB FT hrs Fasting Time 12 LAB VLDL <30 mg/dL High VLDL Cholesterol 36 LAB TCHDL <5.10 TC:HDL Ratio 3.33 LAB LDLHDL <2.54 LDL:HDL Ratio 1.53 Result Comment: Reference: 1. National Cholesterol Education Program ATP III Guideline At-A-Glance Quick Desk Reference: National Heart, Lung, and Blood [place]. National Institutes of Health. 2001: NIH Publication No. 01-3305. 2. An International Atherosclerosis Society position paper: global recommendations for the management of dyslipidemia: executive summary, Atherosclerosis. 2014: 232(2):410-413. Performed By: #### LIPB, TSH #### [facility] [address], [place] [address] TSH Collected: 04/22/2018 Status: F Source: [place] 11:[address] [facility] REPOSITORY TYPE CODE TESTS RESULT OUT OF RANGE REFERENCE UNITS LAB TSH 0.400-5.500 uU/mL TSH 0.694 Performed By: #### LIPB, TSH #### [facility] [address] [place], [place] [address] PROGRESS Observed: 04/14/2018 Status: COMPLETED Source: [place] 4:[address] [facility] REPOSITORY HNO ID: [id number] Author: Haseeb Trujillo Service: (none) Author Type: Physician Type: Progress Notes Filed: 04/14/2018 4:36 PM Note Text: PERTINENT CARDIAC HISTORY Chest pain CRUZ Palpitations HL Family history CAD ADHERENCE TO GUIDELINES DANIEL-I or ARB for HF with prior LVEF<40 (NQF 0081) - N/A ASA or Plavix for ASHD (NQF 0067) - met Beta yury for ASHD with prior NM or prior LVEF<40 (NQF 0070) - N/A Beta yury for HF with prior LVEF<40 (NQF 0083) - N/A DANIEL-I or ARB for ASHD with DM or prior LVEF<40 (NQF 0066) - N/A Statin therapy for ASHD or FHL or DM - met BMI documented and plan if >25 (NQF 0421) - lifestyle recommendation form Tobacco use screening and referral (NQF 0028) - lifestyle recommendation form Recommendation for whole food, plant based diet - lifestyle recommendation form CLINICAL IMPRESSION/PLAN: Arnol Jason is doing well. She will likely get by with a very small dose of beta yury. Her prescription will be changed to metoprolol XL 25 milligrams daily. She will continue Lipitor and we will check, TSH and lipid profile. I will see her in 8 months or as needed. If there is increased chest pain or palpitations, she has been advised to contact me. Written and verbal health teaching given to patient, patient verbalizes understanding and agrees with treatment plan. DIAGNOSIS FOR VISIT: Chest pain Palpitations HISTORY OF PRESENT ILLNESS Arnol Jason returns for follow-up of her chest pain and palpitations. She reports that her symptoms have resolved with the addition of a beta yury. She has been compliant with Lipitor but she typically only gets one dose of metoprolol in per day. Exercise tolerance has been good. She's had no orthopnea, edema, syncope, TIAs, amaurosis or claudication. ALLERGIES: ALLERGIES No Known Allergies CURRENT OUTPATIENT MEDICATIONS: metoprolol tartrate, short acting, (LOPRESSOR) 25 mg tablet Take 1 tablet by mouth twice daily. aspirin, enteric coated (ECOTRIN LOW STRENGTH) 81 mg EC tablet Take 1 tablet by mouth once daily. atorvastatin (LIPITOR) 20 mg tablet Take 1 tablet by mouth once daily. nitroglycerin sublingual (NITROQUICK) 0.4 mg SL tablet Dissolve 1 tablet under the tongue as needed. for chest pain,every 5 min x3 amitriptyline (ELAVIL) 10 mg tablet Take 1 tablet by mouth daily at bedtime. levothyroxine (SYNTHROID) 75 mcg tablet Take 1 tablet by mouth once daily. pantoprazole DR (PROTONIX) 20 mg tablet Take 1 tablet by mouth once daily. ranitidine (ZANTAC) 150 mg tablet Take 1 tablet by mouth daily at bedtime. PHYSICAL EXAMINATION: VITAL SIGNS: [facility] 11/21/2007 Chest: Clear to percussion and auscultation. Trachea is midline. Air entry is equal. Cardiac: Regular rhythm. S1 and S2 are normal. PMI is nondisplaced. There are no murmurs, rubs or gallops. Carotids are brisk without bruits. JVP is less than 10 cm. Abdomen: Soft and nontender. There are no pulsatile masses or bruits. No liver enlargement. Bowel sounds are active. Extremities: No edema. Pulses are intact and symmetrical. Recent stress test showed no evidence of ischemia. LV function is normal. Electronically Signed: Haseeb Trujillo MD April 14, 2018 4:15 PM CC: RAJEEV JAMESON MD CNOV Observed: 04/14/2018 Status: COMPLETED Source: [place] 4:00 PM [facility] REPOSITORY Office Visit (CAWSTR) ARNOL JASON ([id number]) 1955 F Date Time Provider Department 04/14/18 4:00 PM HASEEB TRUJILLOTR During your visit today, we recorded the following information about you: Pulse Blood pressure Weight 90/minute 137/86 61.8 kg Haseeb Trujillo MD 04/14/2018 4:36 PM Signed PERTINENT CARDIAC HISTORY Chest pain CRUZ Palpitations HL Family history CAD ADHERENCE TO GUIDELINES DANIEL-I or ARB for HF with prior LVEF<40 (NQF 0081) - N/A ASA or Plavix for ASHD (NQF 0067) - met Beta yury for ASHD with prior NM or prior LVEF<40 (NQF 0070) - N/A Beta yury for HF with prior LVEF<40 (NQF 0083) - N/A DANIEL-I or ARB for ASHD with DM or prior LVEF<40 (NQF 0066) - N/A Statin therapy for ASHD or FHL or DM - met BMI documented and plan if >25 (NQF 0421) - lifestyle recommendation form Tobacco use screening and referral (NQF 0028) - lifestyle recommendation form Recommendation for whole food, plant based diet - lifestyle recommendation form CLINICAL IMPRESSION/PLAN: Arnol Jason is doing well. She will likely get by with a very small dose of beta yury. Her prescription will be changed to metoprolol XL 25 milligrams daily. She will continue Lipitor and we will check, TSH and lipid profile. I will see her in 8 months or as needed. If there is increased chest pain or palpitations, she has been advised to contact me. Written and verbal health teaching given to patient, patient verbalizes understanding and agrees with treatment plan. DIAGNOSIS FOR VISIT: Chest pain Palpitations HISTORY OF PRESENT ILLNESS Arnol Jason returns for follow-up of her chest pain and palpitations. She reports that her symptoms have resolved with the addition of a beta yury. She has been compliant with Lipitor but she typically only gets one dose of metoprolol in per day. Exercise tolerance has been good. She's had no orthopnea, edema, syncope, TIAs, amaurosis or claudication. ALLERGIES: ALLERGIES No Known Allergies CURRENT OUTPATIENT MEDICATIONS: metoprolol tartrate, short acting, (LOPRESSOR) 25 mg tablet Take 1 tablet by mouth twice daily. aspirin, enteric coated (ECOTRIN LOW STRENGTH) 81 mg EC tablet Take 1 tablet by mouth once daily. atorvastatin (LIPITOR) 20 mg tablet Take 1 tablet by mouth once daily. nitroglycerin sublingual (NITROQUICK) 0.4 mg SL tablet Dissolve 1 tablet under the tongue as needed. for chest pain,every 5 min x3 amitriptyline (ELAVIL) 10 mg tablet Take 1 tablet by mouth daily at bedtime. levothyroxine (SYNTHROID) 75 mcg tablet Take 1 tablet by mouth once daily. pantoprazole DR (PROTONIX) 20 mg tablet Take 1 tablet by mouth once daily. ranitidine (ZANTAC) 150 mg tablet Take 1 tablet by mouth daily at bedtime. PHYSICAL EXAMINATION: VITAL SIGNS: [facility] 11/21/2007 Chest: Clear to percussion and auscultation. Trachea is midline. Air entry is equal. Cardiac: Regular rhythm. S1 and S2 are normal. PMI is nondisplaced. There are no murmurs, rubs or gallops. Carotids are brisk without bruits. JVP is less than 10 cm. Abdomen: Soft and nontender. There are no pulsatile masses or bruits. No liver enlargement. Bowel sounds are active. Extremities: No edema. Pulses are intact and symmetrical. Recent stress test showed no evidence of ischemia. LV function is normal. Electronically Signed: Haseeb Trujillo MD April 14, 2018 4:15 PM CC: MD Haseeb DAINA MD 04/14/2018 4:27 PM Signed LIFESTYLE CHANGE A healthy lifestyle is the most important component of your overall treatment plan. Please give serious thought to the following areas and commit to making longterm changes. EAT A WHOLE FOOD, PLANT BASED DIET The nutrition your body gets is more important than the medicine you take. What matters most is the overall way you eat. We encourage you to minimize the use of animal products (which include dairy and all meats except fatty fish) and use whole, unprocessed plant foods to provide your protein, vitamins and other nutrients. We have a lot of information to share with you on this topic. This is not a diet. It is a way of life that you will keep with you. EXERCISE REGULARLY It is not important to spend hours in the gym, lifting weights and perspiring heavily. A total of 2-3 hours per week of aerobic (causing you to be moderately short of breath) exercise is sufficient to improve your health. Talk to us before you begin a new exercise program, if you have heart disease or experience shortness of breath or chest pain. REDUCE STRESS Chronic emotional and physical stress leads to disease. Ways of reducing stress include meditation, visualization, prayer, yoga and other forms of relaxation therapy. Consistency is the bardales. Find a technique that works for you and do it every day. CULTIVATE RELATIONSHIPS Loneliness and isolation have a major negative impact on health. Seek out others who can love, care for and nurture you. Avoid hurtful relationships. MAINTAIN IDEAL BODY WEIGHT The best way to do this is to do all the things above. Our bodies naturally find the right weight if we keep moving and feed ourselves the right food. If your BMI is greater than 25, we strongly recommend a referral to a weight management program. Please speak to us or your family physician about available programs. AVOID NICOTINE IN ALL FORMS This includes all tobacco products, whether chewed, smoked, vaped, or rubbed on the skin. Smoking cessation programs, which can make use of tobacco substitutes, medications to suppress cravings and behavior management, are available. Please contact your family physician about programs in your area. Referring Provider: HASEEB TRUJILLO [[id number]] Allergies As of Date: 04/14/2018 (No Known Allergies) Date Reviewed: 04/14/2018 Reviewed by: Tammy Jacobsen RN - Fully Assessed Reason for Visit: Recheck [92] Primary Visit Diagnosis:Palpitations [R00.2] Other Visit Diagnosis:Chest pain, unspecified type [R07.9] Order(s):metoprolol succinate ER (TOPROL XL) 25 mg 24 hr tabletTake 1 tablet by mouth once daily.Disp: 90 tabletRfl: 3 TSH BLD [SQTSH] Order #: [id number] FUTURE LIPID PANEL BASIC [SQLIPB] Order #: [id number] FUTURE Prescriptions as of 04/14/2018 Sig: ASPIRIN 81 MG TABLET,DELAYED * Take 1 tablet by mouth once d* ATORVASTATIN 20 MG TABLET Take 1 tablet by mouth once d* NITROGLYCERIN 0.4 MG SUBLINGU* Dissolve 1 tablet under the t* AMITRIPTYLINE 10 MG TABLET Take 1 tablet by mouth daily * LEVOTHYROXINE 75 MCG TABLET Take 1 tablet by mouth once d* PANTOPRAZOLE 20 MG TABLET,DEL* Take 1 tablet by mouth once d* METOPROLOL SUCCINATE ER 25 MG* Take 1 tablet by mouth once d* RANITIDINE 150 MG TABLET Take 1 tablet by mouth daily * Patient not taking: Reported on 01/12/2018 Problem List As Of Date 04/14/2018 Noted Resolved Hypothyroidism [E03.9] Mixed hyperlipidemia [E78.2] ANXIETY STATE NOS [F41.1] INVALID FOR* Diarrhea [R19.7] INVALID FOR* Osteopenia [M85.80] INVALID FOR* MVP (mitral valve prolapse) [I34.1] INVALID FOR* Fibromyalgia [M79.7] INVALID FOR* Urgency of urination [R39.15] INVALID FOR* Pelvic pain in female [R10.2] INVALID FOR* Left lower quadrant pain [R10.32] INVALID FOR* Microscopic hematuria [R31.29] INVALID FOR* History of kidney stones [Z87.442] INVALID FOR* Multiple thyroid nodules [E04.2] INVALID FOR* Multinodular goiter [E04.2] INVALID FOR* Other instructions from your clinician: LIFESTYLE CHANGE A healthy lifestyle is the most important component of your overall treatment plan. Please give serious thought to the following areas and commit to making longterm changes. EAT A WHOLE FOOD, PLANT BASED DIET The nutrition your body gets is more important than the medicine you take. What matters most is the overall way you eat. We encourage you to minimize the use of animal products (which include dairy and all meats except fatty fish) and use whole, unprocessed plant foods to provide your protein, vitamins and other nutrients. We have a lot of information to share with you on this topic. This is not a diet. It is a way of life that you will keep with you. EXERCISE REGULARLY It is not important to spend hours in the gym, lifting weights and perspiring heavily. A total of 2-3 hours per week of aerobic (causing you to be moderately short of breath) exercise is sufficient to improve your health. Talk to us before you begin a new exercise program, if you have heart disease or experience shortness of breath or chest pain. REDUCE STRESS Chronic emotional and physical stress leads to disease. Ways of reducing stress include meditation, visualization, prayer, yoga and other forms of relaxation therapy. Consistency is the bardales. Find a technique that works for you and do it every day. CULTIVATE RELATIONSHIPS Loneliness and isolation have a major negative impact on health. Seek out others who can love, care for and nurture you. Avoid hurtful relationships. MAINTAIN IDEAL BODY WEIGHT The best way to do this is to do all the things above. Our bodies naturally find the right weight if we keep moving and feed ourselves the right food. If your BMI is greater than 25, we strongly recommend a referral to a weight management program. Please speak to us or your family physician about available programs. AVOID NICOTINE IN ALL FORMS This includes all tobacco products, whether chewed, smoked, vaped, or rubbed on the skin. Smoking cessation programs, which can make use of tobacco substitutes, medications to suppress cravings and behavior management, are available. Please contact your family physician about programs in your area. Prescriptions ordered this encounter Disp Refills Start End METOPROLOL SUCCINATE ER 25 MG TABLET* 90 t* 3 04/14/2018 Route: ORAL Sig: Take 1 tablet by mouth once daily. Medications Discontinued During This Encounter metoprolol tartrate, short acting, (* 60 t* 11 01/17/2018 04/14/2018 Route: ORAL Sig: Take 1 tablet by mouth twice daily. Disc: Reason for discontinue is not on file. Encounter Status:Closed by HASEEB TRUJILLO MD on 04/14/18 STRESS REPORT Observed: 01/31/2018 Status: F Source: [place] 12:24 PM [facility] REPOSITORY [facility] Cardiovascular Services [address] [place] [id number] MR#: [id number] Acct: [id number] Name: CASIEMARYELLENARNOL M Rep #: [id number] : 1955 62 From: Surjit Batista MD Primary Care: Rajeev Jameson MD Status: REG CLI Ordering Dr: Sex: F C Stress Test Report Date: 01/31/2018 Procedure: Exercise tolerance test/imaging study Indications: Pain Consent: Per the patient Procedure: The patient exercised on a Gene protocol for 6 minutes completing Stage II achieving a peak heart rate of 157 bpm (98 % predicted maximal heart rate) with a peak blood pressure 192/80 mmHg and a peak MET capacity of 7 METs. The baseline ECG demonstrated normal sinus rhythm. The peak exercise ECG demonstrated approximately [address] segment depression in leads II, III, aVF, and V4 through V6. There was a rare PVC during exercise and recovery. The functional capacity was considered average. There was no complaint of chest discomfort during exercise or recovery. The examination was discontinued secondary to dyspnea. Impression: 1. Technically adequate (percent predicted maximal heart rate greater than 85%) exercise tolerance test 2. Peak exercise ECG demonstrated approximately [address] segment depression in leads II, III, aVF, and V4 through V6 3. There was a rare PVC during exercise and recovery. 4. Nuclear images pending Myocardial perfusion imaging study: Technique: The patient was injected with 10.7 mCi of technetium 99m Cardiolite and subsequently rest SPECT Cardiolite nuclear imaging was obtained in the horizontal long, vertical long, and short axis views. The patient exercised on a Gene protocol for 6 minutes completing Stage II achieving a peak heart rate of 157 bpm (98 % predicted maximal heart rate) with a peak blood pressure 192/80 mmHg and a peak MET capacity of 7 METs. The patient was injected with 34 mCi of technetium 99m Cardiolite and subsequently stress SPECT Cardiolite nuclear imaging was obtained in the horizontal long, vertical long, and short axis views. A gated Cardiolite study at peak stress was obtained. Interpretation: Rest and stress SPECT Cardiolite nuclear imaging status post realignment, normalization, and attenuation correction, demonstrates the appearance of relative uniform tracer uptake and myocardial perfusion appearing within normal limits. There is end systolic thickening and brightening. The gated Cardiolite study demonstrates myocardial thickening and inward wall motion. The reported LVEF is 72 %. Impression: 1. Rest and stress SPECT Cardiolite nuclear imaging demonstrate relative uniform tracer uptake and myocardial perfusion appearing within normal limits. 2. The gated Cardiolite study reports an LVEF of 72 %. This note was generated with Triageation software. It may contain incorrect words, spelling, and punctuation that were not noted in checking the note before signing. 01/31/18 1224 <Electronically signed by Surjit Batista MD> Date Surjit Batista MD CC: Rajeev Jameson MD; Haseeb Trujillo MD Date Dictated: 01/31/181216 Date Transcribed: 01/31/181216 Handle Rounder Operator: PM Signed PROGRESS Observed: 01/12/2018 Status: COMPLETED Source: [place] 4:[address] [facility] [place] REPOSITORY [facility] ID: [id number] Author: Haseeb Trujillo Service: (none) Author Type: Physician Type: Progress Notes Filed: 01/12/2018 5:59 PM Note Text: PERTINENT CARDIAC HISTORY Chest pain CRUZ Palpitations HL Family history CAD ADHERENCE TO GUIDELINES DANIEL-I or ARB for HF with prior LVEF<40 (NQF 0081) - N/A ASA or Plavix for ASHD (NQF 0067) - met Beta yury for ASHD with prior NM or prior LVEF<40 (NQF 0070) - N/A Beta yury for HF with prior LVEF<40 (NQF 0083) - N/A DANIEL-I or ARB for ASHD with DM or prior LVEF<40 (NQF 0066) - N/A Statin therapy for ASHD or FHL or DM - met BMI documented and plan if >25 (NQF 0421) - lifestyle recommendation form Tobacco use screening and referral (NQF 0028) - lifestyle recommendation form Recommendation for whole food, plant based diet - lifestyle recommendation form CLINICAL IMPRESSION/PLAN: Arnol Jason has symptoms which are suspicious for coronary disease. She has significant risk factors given her family history and hyperlipidemia. Her stress test in the past showed mild ST change and a non- imaging stress test would likely be non-diagnostic. I recommended that we do another exercise nuclear stress test for comparison to her previous study. This will be arranged in the near future. In the meantime, I've asked her to begin Lipitor 20 milligrams daily and make sure she takes aspirin 81 milligrams daily. She will continue the beta yury that was started in the emergency department. If her sensation of palpitations continues, we will consider event monitoring. She was reported to have ventricular ectopy in the emergency room, but this resolved while she was there. I've asked her to return to the emergency department if she has unstable symptoms. I will tentatively see her in 3 months, but will be in touch with her as we receive results of the test. Thank you for asking me to see and make recommendations on Arnol Jason. This report is available to you in the shared medical record. Written and verbal health teaching given to patient, patient verbalizes understanding and agrees with treatment plan. DIAGNOSIS FOR VISIT: Chest pain Dyspnea on exertion HISTORY OF PRESENT ILLNESS Arnol Jason is a 62-year-old woman without previous cardiac history, who is seen in consultation at the request of Dr. Jameson, for recommendations regarding recent onset chest pressure and exercise intolerance. She underwent stress testing several years ago for atypical chest pain, which has resolved. She had a cholecystectomy done 6 weeks ago. Since that time, she has noticed occasional pressure in the chest, particularly with activity. This occasionally radiates to the right shoulder. It is associated with shortness of breath. She has occasional clammy feeling. She has noted some decrease in exercise tolerance. On one occasion, she felt her heart racing at home and recorded a heart rate of 120. She went to the emergency department where she was evaluated. There is no evidence of acute coronary syndrome. CT scan showed no evidence of pulmonary embolism or vascular events. She continues to have occasional sensation of irregular heartbeat, although symptoms have been better since she started beta yury. She has not had any more sustained tachycardia. Her chest discomfort continues to be an issue and she has definitely noticed a change in exercise tolerance over the last 2 months. She's had no postoperative surgical complications. Risks for coronary disease are limited to family history and hyperlipidemia. ALLERGIES: ALLERGIES No Known Allergies CURRENT OUTPATIENT MEDICATIONS: metoprolol tartrate, short acting, (LOPRESSOR) 25 mg tablet Take 25 mg by mouth twice daily. amitriptyline (ELAVIL) 10 mg tablet Take 1 tablet by mouth daily at bedtime. levothyroxine (SYNTHROID) 75 mcg tablet Take 1 tablet by mouth once daily. pantoprazole DR (PROTONIX) 20 mg tablet Take 1 tablet by mouth once daily. ranitidine (ZANTAC) 150 mg tablet Take 1 tablet by mouth daily at bedtime. PAST MEDICAL HISTORY Diagnosis Date - Abdominal pain, epigastric - Diarrhea - Fibromyalgia - IBS (irritable bowel syndrome) - Mental disorder - Other and unspecified hyperlipidemia - Unspecified hypothyroidism PAST SURGICAL HISTORY Procedure Laterality Date - COLONOSCOPY W/BX 07/27/11 - EGD W/O BRSH SPECIMEN W/BX 07/27/11 - REMOVAL OF TONSILS,<12 Y/O Tonsillectomy FAMILY HISTORY Problem Relation Age of Onset - Prostate Cancer Father - Heart Father stent in heart - abdominal aortic aneurysm [OTHER] Father repaired - dimentia [OTHER] Father - Diabetes Mother - Hypertension Mother - Heart Mother stent in heart - Stroke Mother - Diabetes Paternal Grandmother - Cervical Cancer Maternal Grandmother - Cancer Maternal Grandfather bone - Breast Cancer Paternal Aunt multiple aunts with the disease Social History Marital status: Spouse name: MAHI Years of education: 13 Number of children: 5 Occupational History Occupation Employer Comment [employer] Social History Main Topics Smoking status: Never Smoker Smokeless tobacco: Never Used Alcohol use: No Drug use: No Sexual activity: Yes Partners with: Male control/protection: Surgical Comment: had vasectomy REVIEW OF SYSTEMS: General: No chills, fever, weight loss, night sweats. SHEENT: No change in vision or auditory acuity. Respiratory: No productive cough. Cardiac: As noted above. GI: No melena.History of GERD. : No dysuria. Musculoskeletal: No myalgias. Neurologic: No strokes. Psychiatric: No depression. Endocrine: No diabetes. Hematologic: No anemia. PHYSICAL EXAMINATION: S/he is alert and in no distress VITAL SIGNS: BP 146/82 Pulse 76 Ht 5' 1 (1.55m) Wt 133 lb 8 oz (60.6kg) LMP 11/21/2007 BMI 25.24 kg/(m2). SHEENT: Skin is warm and dry. Pupils are round and reactive. Retinal vessels are grossly unremarkable. No xanthelasmas appreciated. Pharynx is benign. There is no oral cyanosis. Neck: supple. No adenopathy or thyroid enlargement. Chest: Clear to percussion and auscultation. Trachea is midline. Air entry is equal. There is no chest wall tenderness. Cardiac: Regular rhythm. S1 and S2 are normal. PMI is nondisplaced. There are no murmurs, rubs or gallops. No click is heard. Carotids are brisk without bruits. JVP is less than 10 cm. Abdomen: Soft and nontender. There are no pulsatile masses or bruits. No liver enlargement. Bowel sounds are active. : Deferred. Extremities: No edema. Pulses are intact and symmetrical. No clubbing or cyanosis. No femoral bruits. Neurologic: Grossly normal motor and sensory. S/he is alert and oriented x4. Musculoskeletal: No joint deformities. EKG done in the emergency department was within normal limits. Laboratory studies were performed included normal hemogram. Renal function is normal. Troponin was undetectable. BNP was low. CTA showed no evidence of pulmonary embolism or aortic dissection. EKG showed some minor ST depression. There is no evidence of acute coronary syndrome. Previous echocardiogram showed normal left ventricular function. There was no evidence of mitral valve prolapse. These images were personally reviewed. Prior stress test showed normal ejection fraction. There was no evidence of ischemia. There was nonspecific ST depression Prior lipid profile showed an LDL of 140. TSH was normal. In the emergency department she was started on aspirin and beta yury and referred for further evaluation. Electronically Signed: Haseeb Trujillo MD January 12, 2018 4:04 PM CC: RAJEEV JAMESON MD CNOV Observed: 01/12/2018 Status: COMPLETED Source: [place] 3:30 PM [facility] REPOSITORY Office Visit ([facility]) ARNOL JASON ([id number]) 1955 F Date Time Provider Department 01/12/18 3:30 PM HASEEB TRUJILLO [facility] During your visit today, we recorded the following information about you: Pulse Blood pressure Weight Height 76/minute 146/82 60.6 kg 1.549 m Haseeb Trujillo MD 01/12/2018 5:59 PM Signed PERTINENT CARDIAC HISTORY Chest pain CRUZ Palpitations HL Family history CAD ADHERENCE TO GUIDELINES DANIEL-I or ARB for HF with prior LVEF<40 (NQF 0081) - N/A ASA or Plavix for ASHD (NQF 0067) - met Beta yury for ASHD with prior NM or prior LVEF<40 (NQF 0070) - N/A Beta yury for HF with prior LVEF<40 (NQF 0083) - N/A DANIEL-I or ARB for ASHD with DM or prior LVEF<40 (NQF 0066) - N/A Statin therapy for ASHD or FHL or DM - met BMI documented and plan if >25 (NQF 0421) - lifestyle recommendation form Tobacco use screening and referral (NQF 0028) - lifestyle recommendation form Recommendation for whole food, plant based diet - lifestyle recommendation form CLINICAL IMPRESSION/PLAN: Arnol Jason has symptoms which are suspicious for coronary disease. She has significant risk factors given her family history and hyperlipidemia. Her stress test in the past showed mild ST change and a non-imaging stress test would likely be non-diagnostic. I recommended that we do another exercise nuclear stress test for comparison to her previous study. This will be arranged in the near future. In the meantime, I've asked her to begin Lipitor 20 milligrams daily and make sure she takes aspirin 81 milligrams daily. She will continue the beta yury that was started in the emergency department. If her sensation of palpitations continues, we will consider event monitoring. She was reported to have ventricular ectopy in the emergency room, but this resolved while she was there. I've asked her to return to the emergency department if she has unstable symptoms. I will tentatively see her in 3 months, but will be in touch with her as we receive results of the test. Thank you for asking me to see and make recommendations on Arnol Jason. This report is available to you in the shared medical record. Written and verbal health teaching given to patient, patient verbalizes understanding and agrees with treatment plan. DIAGNOSIS FOR VISIT: Chest pain Dyspnea on exertion HISTORY OF PRESENT ILLNESS Arnol Jason is a 62-year-old woman without previous cardiac history, who is seen in consultation at the request of Dr. Jameson, for recommendations regarding recent onset chest pressure and exercise intolerance. She underwent stress testing several years ago for atypical chest pain, which has resolved. She had a cholecystectomy done 6 weeks ago. Since that time, she has noticed occasional pressure in the chest, particularly with activity. This occasionally radiates to the right shoulder. It is associated with shortness of breath. She has occasional clammy feeling. She has noted some decrease in exercise tolerance. On one occasion, she felt her heart racing at home and recorded a heart rate of 120. She went to the emergency department where she was evaluated. There is no evidence of acute coronary syndrome. CT scan showed no evidence of pulmonary embolism or vascular events. She continues to have occasional sensation of irregular heartbeat, although symptoms have been better since she started beta yury. She has not had any more sustained tachycardia. Her chest discomfort continues to be an issue and she has definitely noticed a change in exercise tolerance over the last 2 months. She's had no postoperative surgical complications. Risks for coronary disease are limited to family history and hyperlipidemia. ALLERGIES: ALLERGIES No Known Allergies CURRENT OUTPATIENT MEDICATIONS: metoprolol tartrate, short acting, (LOPRESSOR) 25 mg tablet Take 25 mg by mouth twice daily. amitriptyline (ELAVIL) 10 mg tablet Take 1 tablet by mouth daily at bedtime. levothyroxine (SYNTHROID) 75 mcg tablet Take 1 tablet by mouth once daily. pantoprazole DR (PROTONIX) 20 mg tablet Take 1 tablet by mouth once daily. ranitidine (ZANTAC) 150 mg tablet Take 1 tablet by mouth daily at bedtime. PAST MEDICAL HISTORY Diagnosis Date - Abdominal pain, epigastric - Diarrhea - Fibromyalgia - IBS (irritable bowel syndrome) - Mental disorder - Other and unspecified hyperlipidemia - Unspecified hypothyroidism PAST SURGICAL HISTORY Procedure Laterality Date - COLONOSCOPY W/BX 07/27/11 - EGD W/O BRSH SPECIMEN W/BX 07/27/11 - REMOVAL OF TONSILS,<12 Y/O Tonsillectomy FAMILY HISTORY Problem Relation Age of Onset - Prostate Cancer Father - Heart Father stent in heart - abdominal aortic aneurysm [OTHER] Father repaired - dimentia [OTHER] Father - Diabetes Mother - Hypertension Mother - Heart Mother stent in heart - Stroke Mother - Diabetes Paternal Grandmother - Cervical Cancer Maternal Grandmother - Cancer Maternal Grandfather bone - Breast Cancer Paternal Aunt multiple aunts with the disease Social History Marital status: Spouse name: MAHI Years of education: 13 Number of children: 5 Occupational History Occupation Employer Comment [employer] Social History Main Topics Smoking status: Never Smoker Smokeless tobacco: Never Used Alcohol use: No Drug use: No Sexual activity: Yes Partners with: Male control/protection: Surgical Comment: had vasectomy REVIEW OF SYSTEMS: General: No chills, fever, weight loss, night sweats. SHEENT: No change in vision or auditory acuity. Respiratory: No productive cough. Cardiac: As noted above. GI: No melena.History of GERD. : No dysuria. Musculoskeletal: No myalgias. Neurologic: No strokes. Psychiatric: No depression. Endocrine: No diabetes. Hematologic: No anemia. PHYSICAL EXAMINATION: S/he is alert and in no distress VITAL SIGNS: BP 146/82 Pulse 76 Ht 5' 1 (1.55m) Wt 133 lb 8 oz (60.6kg) LMP 11/21/2007 BMI 25.24 kg/(m2). SHEENT: Skin is warm and dry. Pupils are round and reactive. Retinal vessels are grossly unremarkable. No xanthelasmas appreciated. Pharynx is benign. There is no oral cyanosis. Neck: supple. No adenopathy or thyroid enlargement. Chest: Clear to percussion and auscultation. Trachea is midline. Air entry is equal. There is no chest wall tenderness. Cardiac: Regular rhythm. S1 and S2 are normal. PMI is nondisplaced. There are no murmurs, rubs or gallops. No click is heard. Carotids are brisk without bruits. JVP is less than 10 cm. Abdomen: Soft and nontender. There are no pulsatile masses or bruits. No liver enlargement. Bowel sounds are active. : Deferred. Extremities: No edema. Pulses are intact and symmetrical. No clubbing or cyanosis. No femoral bruits. Neurologic: Grossly normal motor and sensory. S/he is alert and oriented x4. Musculoskeletal: No joint deformities. EKG done in the emergency department was within normal limits. Laboratory studies were performed included normal hemogram. Renal function is normal. Troponin was undetectable. BNP was low. CTA showed no evidence of pulmonary embolism or aortic dissection. EKG showed some minor ST depression. There is no evidence of acute coronary syndrome. Previous echocardiogram showed normal left ventricular function. There was no evidence of mitral valve prolapse. These images were personally reviewed. Prior stress test showed normal ejection fraction. There was no evidence of ischemia. There was nonspecific ST depression Prior lipid profile showed an LDL of 140. TSH was normal. In the emergency department she was started on aspirin and beta yury and referred for further evaluation. Electronically Signed: Haseeb Trujillo MD January 12, 2018 4:04 PM CC: RAJEEV JAMESON MD Referring Provider: HASEEB TRUJILLO [[id number]] Allergies As of Date: 01/12/2018 (No Known Allergies) Date Reviewed: 01/12/2018 Reviewed by: Iesha Renner MA - Fully Assessed Reason for Visit: New Patient [172] Cmt: Seen in ER placed on Metropolol Tartrate no symptoms since taking Visit Diagnosis:Encounter for screening for cardiovascular disorders [Z13.6] Order(s):aspirin, enteric coated (ECOTRIN LOW STRENGTH) 81 mg EC tabletTake 1 tablet by mouth once daily.Disp: Rfl: atorvastatin (LIPITOR) 20 mg tabletTake 1 tablet by mouth once daily.Disp: 30 tabletRfl: 6 EXERCISE STRESS W/NUC IMAGING [[id number]] Order #: [id number]: 1 NM CARDIAC PERF STRESS/EXERCISE [[id number]] Order #: [id number] FUTURE IV START - SPECIFY [[id number]] Order #: [id number]: 1 IV DISCONTINUE [[id number]] Order #: [id number]: 1 nitroglycerin sublingual (NITROQUICK) 0.4 mg SL tabletDissolve 1 tablet under the tongue as needed. for chest pain,every 5 min x3Disp: 1 Bottle of 25Rfl: 3 Prescriptions as of 01/12/2018 Sig: METOPROLOL TARTRATE 25 MG TAB* Take 25 mg by mouth twice bette* AMITRIPTYLINE 10 MG TABLET Take 1 tablet by mouth daily * LEVOTHYROXINE 75 MCG TABLET Take 1 tablet by mouth once d* PANTOPRAZOLE 20 MG TABLET,DEL* Take 1 tablet by mouth once d* ASPIRIN 81 MG TABLET,DELAYED * Take 1 tablet by mouth once d* ATORVASTATIN 20 MG TABLET Take 1 tablet by mouth once d* NITROGLYCERIN 0.4 MG SUBLINGU* Dissolve 1 tablet under the t* RANITIDINE 150 MG TABLET Take 1 tablet by mouth daily * Patient not taking: Reported on 01/12/2018 Problem List As Of Date 01/12/2018 Noted Resolved Hypothyroidism [E03.9] Mixed hyperlipidemia [E78.2] ANXIETY STATE NOS [F41.1] INVALID FOR* Diarrhea [R19.7] INVALID FOR* Osteopenia [M85.80] INVALID FOR* MVP (mitral valve prolapse) [I34.1] INVALID FOR* Fibromyalgia [M79.7] INVALID FOR* Urgency of urination [R39.15] INVALID FOR* Pelvic pain in female [R10.2] INVALID FOR* Left lower quadrant pain [R10.32] INVALID FOR* Microscopic hematuria [R31.29] INVALID FOR* History of kidney stones [Z87.442] INVALID FOR* Multiple thyroid nodules [E04.2] INVALID FOR* Multinodular goiter [E04.2] INVALID FOR* Prescriptions ordered this encounter Disp Refills Start End ASPIRIN 81 MG TABLET,DELAYED RELEASE 01/12/2018 Class: Med Update Route: ORAL Sig: Take 1 tablet by mouth once daily. ATORVASTATIN 20 MG TABLET 30 t* 6 01/12/2018 Route: ORAL Sig: Take 1 tablet by mouth once daily. NITROGLYCERIN 0.4 MG SUBLINGUAL TABL* 1 Juan Carlos* 3 01/12/2018 Route: SUBLINGUAL Sig: Dissolve 1 tablet under the tongue as needed. for chest pain,every 5 min x3 Follow-up and Disposition History Recorded Encounter Status:Closed by HASEEB TRUJILLO MD on 01/12/18 12 LEAD ELECTROCARDIOGRAM Observed: 01/11/2018 Status: F Source: [place] 2:16 PM [facility] REPOSITORY [facility] Cardiovascular Services [address] [place] [address] 12 Lead EKG 01/07/1816 MR#: [id number] Acct: [id number] Name: ARNOL JASON Rep #: [id number] : 1955 62 From: Surjit Batista MD Attending Dr: Status: DEP ER Ordering Dr: Morales Melendez MD Date: 01/07/18 Location: ED Sex: F C Admitted: Test Reason : SOB Blood Pressure : / mmHG Vent. Rate : 090 BPM Atrial Rate : 090 BPM P-R Int : 122 ms QRS Dur : 082 ms QT Int : 366 ms P-R-T Axes : 057 037 044 degrees QTc Int : 447 ms Normal sinus rhythm Nonspecific ST abnormality Abnormal ECG Confirmed by LESTER SAMANO, SURJIT ([id number]), television news video editor JULIANA LEE ([id number]) on 01/11/2018 2:15:56 PM Referred By: DANIA/JOSE Confirmed By:SURJIT BATISTA MD 01/11/18 1416 Date Surjit Batista MD CC: MD Chrissy Melendez; Rajeev Jameson MD Signed EMERGENCY DEPARTMENT Observed: 01/07/2018 Status: F Source: [place] SUMMARY 4:06 PM [facility] REPOSITORY [facility] Medical Records Department [address] [place] [address] Emergency Department Summary 01/07/18928 MR#: [id number] Acct: [id number] Name: ARNOL JASON Rep #: [id number] : 1955 62 From: Morales Melendez MD PCP: Rajeev Jameson MD Status: DEP ER - ER Visit Summary Date of Service: 01/07/18 Chief Complaint: [] Chest pain rapid heart beating for 4-6 weeks History of Present Illness: The patient is a 62 F [] she reports about 6 weeks ago she had an uncomplicated cholecystectomy, she reports since that time she has had chest pressure fullness and rapid heart beating it is worse when she exerts herself, she had an episode this morning her heart was racing she had more chest pressure and she came to the emergency department she currently complains of very mild fullness in her chest she is having on the monitor runs of PVCs her vital signs otherwise unremarkable, she indicates she has no history of NM PE or DVT, she has no history of high cholesterol diabetes or hypertension, she believes she had a cardiac stress test in 2010 that was unremarkable Physical Examination: [] She is resting comfortably in the bed her vital signs are within normal range again she will have 3-4 beat runs of PVCs, her HEENT exam is unremarkable her lungs are clear the heart tones are generally regular except as above no murmur the abdomen is soft nontender upper lower extremities unremarkable neurologic she is awake moving all 4 Test Results: [] Emergency Department Course and Treatment: [] Ventral is rather extensive EKG shows a sinus rhythm nothing acute nonspecific changes old EKG pending valuation is pursued Treatment Plan: [] Patient's lab studies are all generally unremarkable see those reports the EKG showed a sinus rhythm nothing acute prior EKG showed similar changes and frequent PVCs, CTA of the chest showed nothing acute see those reports on reevaluation is resting comfortably she is no longer having any PVCs on the monitor I explained the concept of occult cardiac disease, sudden , she understands and she does have a family history with both parents having CAD, I discussed admission for further management and the concept of again of sudden she states she understands she is clearly able to read back to me my concerns family is her in the room however she states she refers outpatient management and she does agree to take aspirin every day and follow with Dr. Bhagat her skilled laborer next week and return if her symptoms change or intensified anyway, I have paged Dr. Bhagat will discuss the case with him make him aware of the above and at her request discharge her for outpatient management Speak with Dr. Bhagat he would like a magnesium level checked if this is normal he would like her started on 25 mg Lopressor twice daily he will see her in the office shortly Disposition: [] Home stable refused admission Impression: []chest Pain frequent PVCs This note was generated with [employer] dictation software. It may contain incorrect words, spelling, and punctuation that were not noted in review of the chart prior to signing ED Disposition - Plan for ED Patient: Chief Complaint: Shortness of Breath Instructions: ED Chest Pain Atypical Unkn Cause Referrals: Rajeev Jameson MD [Primary Care Provider] - Haseeb Trujillo MD [STAFF PHYSICIAN] - What to do if you have Problems For any increased pain, shortness of breath, bleeding, nausea or vomiting, chest pain, or any unexpected problems, contact your Primary Care Provider. Call [facility] ([phone]) or report to the closest Emergency Room. Call 911 if necessary. 01/07/18 1606 <Electronically signed by Moralse Melendez MD> Date Morales Melendez MD Cosigner Signature (If Indicated): Date CC: Rajeev Jameson MD DISCHARGE INSTRUCTION Observed: 01/07/2018 Status: F Source: [place] 12:31 PM [facility] REPOS[facility]ORY [facility] Medical Records Department [address] [place] [address] Discharge Instruction 01/07/18 1230 MR#: [id number] Acct: [id number] Name: ARNOL JASON Rep #: [id number] : 1955 62 From: Morales Melendez MD PCP: Rajeev Jameson MD Status: REG ER ED Disposition - Plan for ED Patient: Chief Complaint: Shortness of Breath Instructions: ED Chest Pain Atypical Unkn Cause Prescriptions: Metoprolol Tartrate [Lopressor (Beta Yury)] 25 mg PO BID #20 tab Referrals: Rajeev Jameson MD [Primary Care Provider] - Haseeb Trujillo MD [STAFF PHYSICIAN] - What to do if you have Problems For any increased pain, shortness of breath, bleeding, nausea or vomiting, chest pain, or any unexpected problems, contact your Primary Care Provider. Call [facility] ([phone]) or report to the closest Emergency Room. Call 911 if necessary. 01/07/18 1231 <Electronically signed by Morales Melendez MD> Date Morales Melendez MD Cosigner Signature (If Indicated): Date CC: Rajeev Jameson MD DISCHARGE INSTRUCTION Observed: 01/07/2018 Status: F Source: [place] 12:09 PM [facility] Medical Records Department [address] [place] [address] Discharge Instruction 01/07/18 1208 MR#: [id number] Acct: [id number] Name: ARNOL JASON Zulema Rep #: [id number] : 1955 62 From: Morales Melendez MD PCP: Rajeev Jameson MD Status: REG ER ED Disposition - Plan for ED Patient: Chief Complaint: Shortness of Breath Instructions: ED Chest Pain Atypical Unkn Cause Referrals: Rajeev Jameson MD [Primary Care Provider] - Haseeb Trujillo MD [STAFF PHYSICIAN] - What to do if you have Problems For any increased pain, shortness of breath, bleeding, nausea or vomiting, chest pain, or any unexpected problems, contact your Primary Care Provider. Call [facility] ([phone]) or report to the closest Emergency Room. Call 911 if necessary. 01/07/18 1209 <Electronically signed by Morales Melendez MD> Date Morales Melendez MD Cosigner Signature (If Indicated): Date CC: Rajeev Jameson MD CBC W/DIFF, AUTOMATED Collected: 01/07/2018 Status: F Source: [place] 10:00 AM [facility] REPOSITORY TYPE CODE TESTS RESULT OUT OF RANGE REFERENCE UNITS LAB L100.1000 4.4-11.0 K/mm3 Normal WBC 7.5 LAB L100.1200 4.2-5.4 M/mm3 Normal RBC 4.63 LAB L100.1300 12.0-15.0 g/dl Normal HGB 13.6 LAB L100.1400 37-47 % Normal HCT 39.7 LAB L100.1500 81-99 fL Normal MCV 85.7 LAB L100.1600 27.0-32.0 pg Normal MCH 29.4 LAB L100.1700 32-36 g/gl Normal MCHC 34.3 LAB L100.1810 11.6-14.6 % Normal RDW CV 13.0 LAB L100.1820 35.1-43.9 fl Normal RDW SD 40.9 LAB L100.1900 150-450 K/mm3 Normal PLT 298 LAB L100.2000 6.2-12.0 fl Normal MPV 10.3 LAB L100.2100 47-70 % Low NEUT% 41.4 LAB L100.2200 19-41 % High LY% 48.0 LAB L100.2300 0-10 % Normal MONO% 8.6 LAB L100.2400 0-5 % Normal EO% 1.2 LAB L100.2500 0-1 % Normal BASO% 0.7 LAB L100.2550 0.0-0.9 % Normal IM GRAN % 0.100 Result Comment: IG% - Immature Granulocytes (promyelocytes, myelocytes and metamyelocytes) > 1% indicates that a LEFT SHIFT is Present. LAB L100.2620 2.0-7.7 X10 3/uL Normal Absolute Neut 3.1 LAB L100.2720 0.83-4.51 X10 3/ul Normal Absolute Lymph 3.58 Performed By: #### L100.0100 #### [facility] [address] [place], [address] BASIC METABOLIC Collected: 01/07/2018 Status: F Source: [place] (BMP) 10:00 AM [facility] REPOS[facility] TYPE CODE TESTS RESULT OUT OF RANGE REFERENCE UNITS LAB L501.0100 74-106 mg/dL Normal GLU 93 Result Comment: Please note revised GLUCOSE reference range effective 2017. LAB L501.1000 7-18 mg/dL Normal BUN 17 LAB L501.1100 0.55-1.02 mg/dL Normal CREAT,SERUM 0.89 Result Comment: The validity of the calculated GFR AND GFRAA in patients over 70 years has not been determined. Clinical correlation is essential. LAB L501.1110 >60 mL/min Normal EST GFR 68 Result Comment: Non- GFR Calc LAB L501.1115 >60 mL/min Normal EST GFR - AA 82 Result Comment: GFR Calc LAB L501.1255 ml/min Normal Estimated CRCL 50.09 LAB L501.1300 10-20 RATIO Normal BUN/CRE 19.0 LAB L501.2200 8.5-10 mg/dL Normal .1 CA 9.3 LAB L501.5300 136-14 mmol/L Normal 5 NA 142 LAB L501.5600 3.5-5. mmol/L Normal 1 K 5.0 Result Comment: Moderate Hemolysis, Result may be falsely increased. LAB L501.5900 98-107 mmol/L Normal CL 107 LAB L501.6100 21.0-32.0 mmol/L Normal CO2 24.0 LAB L501.6200 5-15 Normal GAP 11 Performed By: #### L500.2500, L501.4010 #### [facility] [address] [place], [address] TROPONIN-I Collected: 01/07/2018 Status: F Source: [place] 10:00 AM [facility] TYPE CODE TESTS RESULT OUT OF RANGE REFERENCE UNITS LAB L501.4010 <0.045 ng/mL Normal < 0.015 TROPONIN-I Result Comment: TROPONIN-I EXPECTED VALUES <0.045 Negative 0.045 - 0.590 Consistent with Cardiac Damage > OR = 0.600 Critical Value Not every elevated troponin is indicative of NM. These values should be used with clinical judgement in examining the patient's clinical picture for diagnosis. To establish a diagnosis of NM versus myocardial injury, there must be a demonstrated rise and/or fall in the troponin values, in addition to ischemic symptoms, EKG changes, new regional wall motion abnormality, and/or angiographical evidence. PLEASE NOTE: REFERENCE RANGES EDITED 17 Performed By: #### L500.2500, L501.4010 #### [facility] [address] [facility], [address] BNP,B-TYPE NATRIURETIC Collected: 01/07/2018 Status: F Source: [place]PT[place] 10:00 AM [facility] TYPE CODE TESTS RESULT OUT OF RANGE REFERENCE UNITS LAB L503.6620 0-100 pg/mL Normal B-TYPE 15.4 SAMI PEP Performed By: #### L503.6620 #### [facility] [address] [facility], [address] MAGNESIUM Collected: 01/07/2018 Status: F Source: [place] 10:00 AM [facility] TYPE CODE TESTS RESULT OUT OF RANGE REFERENCE UNITS LAB L501.5200 1.6-2.6 mg/dL Normal MG 2.2 Result Comment: Slight Hemolysis, Result may be falsely increased. Performed By: #### L501.5200 #### [facility] [address] [facility], [address] CTA CHEST W/WO Observed: 01/07/2018 Status: F Source: [place] CONTRAST 9:33 AM [facility] REPOSITORY [facility] Imaging Services [address] [place] [address] CTA Chest W/WO Contrast MR#: [id number] Acct: [id number] Name: ARNOL JASON Zulema Rep #: [id number] : 1955 F 62 From: Verenice Lee MD PCP: Rajeev Jameson MD Status: REG ER Study: CTA Chest W/WO Contrast Date of Exam: 01/07/18 Exam# [id number] Ordering Dr: Morales Melendez MD STUDY: CTA CHEST REASON FOR EXAM: Female, 62 years old. Right-sided shoulder pain for 2 months. Patient has chest pain. RADIATION DOSAGE (If Supplied By Facility): CTDIvol = ( 6.38 ) mGy, DLP = ( 227.73 ) mGycm TECHNIQUE: The examination was performed with the intravenous administration of 75 ml of Isovue 370 contrast material. Post-processing of the angiographic images was performed, with multiplanar reformation and 3D reconstruction. Individualized dose optimization techniques were used for this CT. COMPARISON: Prior comparison studies are not available for review at this time. FINDINGS: Normal enhancement of the main pulmonary artery and right and left pulmonary arteries. Normal enhancement of the bilateral peripheral pulmonary arteries. There is no demonstrated pulmonary embolism. There is atherosclerotic tortuosity of the aortic arch and descending thoracic aorta. There is no demonstrated aortic dissection. Normal heart and pericardium. Normal mediastinum. Normal hilar regions. Normal visualized trachea and bronchi. The lungs are well expanded. Normal pulmonary parenchyma. Normal pleura. Normal chest wall structures. Normal osseous structures. There is a small hiatal hernia. CT/CTA Chest W/WO Contrast IMPRESSION: No CTA demonstrated pulmonary embolism or arterial dissection. Electronically Signed: Verenice Lee MD at 11:35 EDT , Service support , CC: MD Chrissy Melendez; Rajeev Jameson MD Handle Rounder Operator: Signed PROGRESS Observed: 12/14/2017 Status: COMPLETED Source: [place] 11:[address] [facility] [place] REPOSITORY O ID: [id number] Author: Booker Nicole) Hilary Service: (none) Author Type: Physician Slasher Sawyer Type: Progress Notes Filed: 12/14/2017 12:57 PM Note Text: Subjective HPI Pt presents with sore throat and fever x 1 day. 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 No cough congestion, nvd or abdominal pain. No cough. She does have some body aches. Pain with swallowing. Review of Systems Constitutional: Positive for chills, fever and malaise/fatigue. HENT: Positive for sore throat. Eyes: Negative. Respiratory: Negative. Cardiovascular: Negative. Gastrointestinal: Negative. Genitourinary: Negative. Musculoskeletal: Negative. Skin: Negative. PAST MEDICAL HISTORY Diagnosis Date - Abdominal pain, epigastric - Diarrhea - Fibromyalgia - IBS (irritable bowel syndrome) - Mental disorder - Other and unspecified hyperlipidemia - Unspecified hypothyroidism Current Outpatient Prescriptions: amitriptyline (ELAVIL) 10 mg tablet Take 1 tablet by mouth daily at bedtime. Disp: 90 tablet Rfl: 3 levothyroxine (SYNTHROID) 75 mcg tablet Take 1 tablet by mouth once daily. Disp: 90 tablet Rfl: [address] (PROTONIX) 20 mg tablet Take 1 tablet by mouth once daily. Disp: 90 tablet Rfl: 3 ranitidine (ZANTAC) 150 mg tablet Take 1 tablet by mouth daily at bedtime. Disp: 30 tablet Rfl: 3 No current facility-administered medications for this visit. PAST SURGICAL HISTORY Procedure Laterality Date - COLONOSCOPY W/BX 07/27/11 - EGD W/O BRSH SPECIMEN W/BX 07/27/11 - REMOVAL OF TONSILS,<12 Y/O Tonsillectomy FAMILY HISTORY Problem Relation Age of Onset - Prostate Cancer Father - Heart Father stent in heart - abdominal aortic aneurysm [OTHER] Father repaired - dimentia [OTHER] Father - Diabetes Mother - Hypertension Mother - Heart Mother stent in heart - Stroke Mother - Diabetes Paternal Grandmother - Cervical Cancer Maternal Grandmother - Cancer Maternal Grandfather bone - Breast Cancer Paternal Aunt multiple aunts with the disease Social History Substance Use Topics - Smoking status: Never Smoker - Smokeless tobacco: Never Used - Alcohol use No BP 122/80 Pulse 62 Temp 36.7 ?C (98.1 ?F) (Left Tympanic) Resp 14 Wt 58.5 kg (129 lb) LMP 11/21/2007 BMI 23.59 kg/m? Objective Physical Exam Constitutional: She is oriented to person, place, and time and well-developed, well-nourished, and in no distress. HENT: Head: Normocephalic and atraumatic. Right Ear: Tympanic membrane, external ear and ear canal normal. Left Ear: Tympanic membrane, external ear and ear canal normal. Nose: Nose normal. Mouth/Throat: Uvula is midline and mucous membranes are normal. Oropharyngeal exudate, posterior oropharyngeal edema and posterior oropharyngeal erythema present. No tonsillar abscesses. Eyes: Conjunctivae are normal. Neck: Normal range of motion. Cardiovascular: Normal rate, regular rhythm and normal heart sounds. Pulmonary/Chest: Effort normal and breath sounds normal. Neurological: She is alert and oriented to person, place, and time. Skin: Skin is warm and dry. No rash noted. Psychiatric: Affect and judgment normal. Nursing note and vitals reviewed. ASSESSMENT/PLAN: 1. Sore throat - ICD9: 462, ICD10: J02.9 (primary diagnosis) 2. Strep throat - ICD9: 034.0, ICD10: J02.0 - Rapid Strep positive in the office today - antibiotic as written and Amoxicillin for 10 days. - Contagious dz precautions discussed- including considered contagious until on antibiotics for 24 hours - The patient should follow up in one week if symptoms persist or worsen - Call back if drooling, increased temperature, symptoms of dehydration and/or still sick in one week Booker Carlisle PA-C CNOV Observed: 12/14/2017 Status: COMPLETED Source: [place] 11:45 AM [facility] REPOSITORY Office Visit ([facility]) ARNOL JASON ([id number]) 1955 F Date Time Provider Department 12/14/17 11:45 AM BOOKER CARLISLE (JIMENA) [facility] During your visit today, we recorded the following information about you: Temperature Pulse Respiration Blood pressure 98.1 degrees 62/minute 14/minute 122/80 Weight 58.5 kg Booker Carlisle PA-C 12/14/2017 12:57 PM Signed Subjective HPI Pt presents with sore throat and fever x 1 day. 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 No cough congestion, nvd or abdominal pain. No cough. She does have some body aches. Pain with swallowing. Review of Systems Constitutional: Positive for chills, fever and malaise/fatigue. HENT: Positive for sore throat. Eyes: Negative. Respiratory: Negative. Cardiovascular: Negative. Gastrointestinal: Negative. Genitourinary: Negative. Musculoskeletal: Negative. Skin: Negative. PAST MEDICAL HISTORY Diagnosis Date - Abdominal pain, epigastric - Diarrhea - Fibromyalgia - IBS (irritable bowel syndrome) - Mental disorder - Other and unspecified hyperlipidemia - Unspecified hypothyroidism Current Outpatient Prescriptions: amitriptyline (ELAVIL) 10 mg tablet Take 1 tablet by mouth daily at bedtime. Disp: 90 tablet Rfl: 3 levothyroxine (SYNTHROID) 75 mcg tablet Take 1 tablet by mouth once daily. Disp: 90 tablet Rfl: [address] (PROTONIX) 20 mg tablet Take 1 tablet by mouth once daily. Disp: 90 tablet Rfl: 3 ranitidine (ZANTAC) 150 mg tablet Take 1 tablet by mouth daily at bedtime. Disp: 30 tablet Rfl: 3 No current facility-administered medications for this visit. PAST SURGICAL HISTORY Procedure Laterality Date - COLONOSCOPY W/BX 07/27/11 - EGD W/O BRSH SPECIMEN W/BX 07/27/11 - REMOVAL OF TONSILS,<12 Y/O Tonsillectomy FAMILY HISTORY Problem Relation Age of Onset - Prostate Cancer Father - Heart Father stent in heart - abdominal aortic aneurysm [OTHER] Father repaired - dimentia [OTHER] Father - Diabetes Mother - Hypertension Mother - Heart Mother stent in heart - Stroke Mother - Diabetes Paternal Grandmother - Cervical Cancer Maternal Grandmother - Cancer Maternal Grandfather bone - Breast Cancer Paternal Aunt multiple aunts with the disease Social History Substance Use Topics - Smoking status: Never Smoker - Smokeless tobacco: Never Used - Alcohol use No BP 122/80 Pulse 62 Temp 36.7 ?C (98.1 ?F) (Left Tympanic) Resp 14 Wt 58.5 kg (129 lb) LMP 11/21/2007 BMI 23.59 kg/m? Objective Physical Exam Constitutional: She is oriented to person, place, and time and well-developed, well-nourished, and in no distress. HENT: Head: Normocephalic and atraumatic. Right Ear: Tympanic membrane, external ear and ear canal normal. Left Ear: Tympanic membrane, external ear and ear canal normal. Nose: Nose normal. Mouth/Throat: Uvula is midline and mucous membranes are normal. Oropharyngeal exudate, posterior oropharyngeal edema and posterior oropharyngeal erythema present. No tonsillar abscesses. Eyes: Conjunctivae are normal. Neck: Normal range of motion. Cardiovascular: Normal rate, regular rhythm and normal heart sounds. Pulmonary/Chest: Effort normal and breath sounds normal. Neurological: She is alert and oriented to person, place, and time. Skin: Skin is warm and dry. No rash noted. Psychiatric: Affect and judgment normal. Nursing note and vitals reviewed. ASSESSMENT/PLAN: 1. Sore throat - ICD9: 462, ICD10: J02.9 (primary diagnosis) 2. Strep throat - ICD9: 034.0, ICD10: J02.0 - Rapid Strep positive in the office today - antibiotic as written and Amoxicillin for 10 days. - Contagious dz precautions discussed- including considered contagious until on antibiotics for 24 hours - The patient should follow up in one week if symptoms persist or worsen - Call back if drooling, increased temperature, symptoms of dehydration and/or still sick in one week Booker Carlisle PA-C Referring Provider: SELF [[id number]] Allergies As of Date: 12/14/2017 (No Known Allergies) Date Reviewed: 12/14/2017 Reviewed by: Inga Schwartz Ma - Fully Assessed Primary Visit Diagnosis:Sore throat [J02.9] Other Visit Diagnosis:Strep throat [J02.0] Order(s):RAPID STREP TEST B/O [[id number]] Order #: [id number] amoxicillin (AMOXIL) 875 mg tabletTake 1 tablet by mouth twice daily for 10 days.Disp: 20 tabletRfl: 0 Prescriptions as of 12/14/2017 Sig: AMITRIPTYLINE 10 MG TABLET Take 1 tablet by mouth daily * LEVOTHYROXINE 75 MCG TABLET Take 1 tablet by mouth once d* PANTOPRAZOLE 20 MG TABLET,DEL* Take 1 tablet by mouth once d* AMOXICILLIN 875 MG TABLET Take 1 tablet by mouth twice * RANITIDINE 150 MG TABLET Take 1 tablet by mouth daily * Problem List As Of Date 12/14/2017 Noted Resolved Hypothyroidism [E03.9] Mixed hyperlipidemia [E78.2] ANXIETY STATE NOS [F41.1] INVALID FOR* Diarrhea [R19.7] INVALID FOR* Osteopenia [M85.80] INVALID FOR* MVP (mitral valve prolapse) [I34.1] INVALID FOR* Fibromyalgia [M79.7] INVALID FOR* Urgency of urination [R39.15] INVALID FOR* Pelvic pain in female [R10.2] INVALID FOR* Left lower quadrant pain [R10.32] INVALID FOR* Microscopic hematuria [R31.29] INVALID FOR* History of kidney stones [Z87.442] INVALID FOR* Multiple thyroid nodules [E04.2] INVALID FOR* Multinodular goiter [E04.2] INVALID FOR* Prescriptions ordered this encounter Disp Refills Start End AMOXICILLIN 875 MG TABLET 20 t* 0 12/14/2017 12/24/2017 Route: ORAL Sig: Take 1 tablet by mouth twice daily for 10 days. Letter Text [place] [facility] JIMENA Rivas [address], [place] [address] 12/14/2017 TO WHOM IT MAY CONCERN: This is to confirm that Arnol Jason had an appointment and was seen at the [facility] in the Department of Urgent Care by JIMENA Rivas on 12/14/2017 and may return to work on 12/15/2017. Sincerely yours, JIMENA Rivas Encounter Status:Closed by BOOKER CARLISLE PA-C on 12/14/17 OPERATIVE REPORT Observed: 11/11/2017 Status: F Source: [place] 11:39 AM [facility] REPOSITORY [facility] Medical Records Department [address] [place] [id number] Operative Report 11/02/17 0835 MR#: [id number] Acct: [id number] Name: ARNOL JASON Rep #: [id number] : 1955 62 From: Rosalee Vann MD PCP: Rajeev Jameson MD Status: [facility] [place] [facility] [place] of Operation Date of Procedure: 11/02/17 Pre-Operative Diagnosis: cholelithiasis, abdominal pain Post-Operative Diagnosis: same Surgery/Procedure Performed:: laparoscopic cholecystectomy with intraoperative cholangiograms Description of Surgical Findings:: intraoperative cholangiograms - normal inker: NOT,ALIDA - Radhika Jorge Type of Anesthesia:: General Anesthesiologist: Lopez Langston Specimen's removed: gallbladder and contents Drains: none Estimated Blood Loss (mL): < 5 ml Fluids Replaced: 700 cc RL Description of Procedure: After informed consent was given, the patient was brought to the Operating Room and placed in the supine position. Appropriate time out protocol was followed. The patient was then placed under general endotracheal anesthesia. The abdomen was then prepped with a sterile surgical skin preparation and sterile surgical drapes were placed. The periaumbilical skin fold was grasped with penetrating clamps and the skin and subcutaneous tissues were infiltrated with local anesthetic. A skin incision was then made with a 15 blade scalpel. The anterior abdominal wall was elevated and a Veress needle was carefully inserted into the intraabdominal cavity. It was checked to be in the proper position with a normal saline drop test. A CO2 pneumoperitoneum was then created. Once this was achieved, then the Veress needle was removed and an 11mm trocar was placed in its stead. A 10mm laparoscope was then inserted into the trocar and careful attention was directed to the intraabdominal contents. There was no evidence of injury to any intraabdominal organs from insertion of the Veress needle or the trocar. Under direct visualization, a 5mm subxiphoid trocar and two lateral 5mm right subcostal trocars were placed. The skin and subcutaneous tissues at these sites were infiltrated with local anesthetic prior to placement of these trocars. Attention was then directed to the right upper quadrant of the abdomen. The gallbladder had some omental adehsions that were taken down by sharp dissection. Any hemorrhage was controlled with electrocautery. Graspers were placed in the lateral trocars to grasp the distal aspect of the gallbladder and direct it cephalad and to grasp the gallbladder at Persaud s pouch and direct it laterally. Dissection then began on the proximal gallbladder continuing down to the area of the triangle of Calot to bluntly dissect out the cystic duct. The neck of the gallbladder was identified and blunt dissection continued to dissect out a segment of the cystic duct. A clip was then placed on the neck of the gallbladder. A small ductotomy was then made. A Ranfac catheter was brought in through a separate skin incision and placed into the cystic duct. An intraoperative cholangiogram was performed under fluoroscopy. The xray revealed no lesions in the common bile duct, arborization of the biliary tree, and good flow into the duodenum. The cholangiograms was read by me as normal. The Ranfac catheter was then removed and two clips were placed proximal to the ductotomy and the cystic duct was then transected. The cystic artery was visualized and bluntly isolated and then two clips were placed proximally and one clip distally and then it was transected between the proximal and distal clips. The gallbladder was then from the liver bed using electrocautery and thus able to be brought out of the umbilical port. It was then forwarded to pathology for analysis. The liver bed was carefully examined. There was no evidence of bile leakage or bleeding. The cystic duct stump and cystic artery stump had their clips intact and there was no evidence of bile leakage or bleeding. The remainder of the abdomen was grossly normal. The CO2 was released and all trocars removed intact. The periumbilical fascia was approximated with a [id number]-[id number] 0 vicryl suture. All skin incision were closed with 4-0 monocryl in a subdermal fashion. Cavilol and Steristrips were used to reinforce the skin closure. Sterile dressings were applied to all wounds. The patient was extubated and brought to the Recovery Room in stable condition. - Complications none noted - Admit VTE Documentation VTE Present on Admission: Yes VTE Mechan Device Prophylaxis: SCD's 11/11/17 1139 <Electronically signed by Rosalee Vann MD> Date Rosalee Vann MD CC: Rajeev Jameson MD; Rosalee Vann MD Signed DISCHARGE INSTRUCTION Observed: 11/11/2017 Status: F Source: [place] 11:36 AM [facility] REPOSITORY [facility] Medical Records Department [address] [place] [address] Instructions for Home/Discharge Instructions 11/02/17 0727 MR#: [id number] Acct: [id number] Name: ARNOL JASON Rep #: [id number] : 1955 62 From: Rosalee Vann MD PCP: Rajeev Jameson MD Status: [place] [facility] Discharge Diet: No Restrictions Discharge Activity: Return to Normal Activity, May not drive while taking narcotic pain medications. Lifting Restrictions: no lifting greater than 20 pounds for 2 weeks Call your doctor if your incision/area has: Continuous Slow Oozing, Foul Smelling Discharge Call your doctor if you observe: Fever of 101 or Higher Additional Dressing/Incision Instructions:: Leave dressings in place. May get wet in shower. Do not soak - no tub baths/swimming Allergies/Adverse Reactions: Allergies No Known Allergies Allergy (Verified 10/31/17 08:04) Medications to take at Discharge Levothyroxine [Synthroid] 75 mcg PO DAILY 11/02/13 Amitriptyline HCl [Amitriptyline HCl] 10 mg PO DAILY 10/26/17 Pantoprazole Sodium [Protonix] 20 mg PO DAILY 10/26/17 Hydrocodone Bitart/Apap 5-325 [[place] 5/325] 1 tablet PO Q6H PRN PRN 3 Days #12 tablet 10/27/17 Primary Care Physician: Rajeev Jameson MD [Primary Care Provider] - Please Follow Up With: Rosalee Vann MD - call When: to be seen in 7-10 days, please call for date and time, thank you 11/11/17 4457 <Electronically signed by Rosalee Vann MD> Date Rosalee Vann MD CC: Rajeev Jameson MD PROGRESS Observed: 11/11/2017 Status: COMPLETED Source: [place] 10:40 AM [facility] REPOSITORY HNO ID: [id number] Author: Rosalee Vann Service: (none) Author Type: Physician Type: Progress Notes Filed: 11/11/2017 10:42 AM Note Text: Arnol is s/p laparoscopic cholecystectomy with cholangiograms done on 11/02/17. She states that she feels overall well. Denies fevers. Examination: abdomen is soft and benign. Wounds are well healed, no evidence of infection Impression: s/p laparoscopic cholecystectomy Plan: Patient has recovered well from her surgery, follow up as per needed. Patient to return to her primary physician for medical care. CNOV Observed: 11/11/2017 Status: COMPLETED Source: [place] 9:20 AM [facility] REPOSITORY Office Visit (GENSWS) ARNOL JASON ([id number]) 1955 F Date Time Provider Department 11/11/17 9:20 AM ROSALEE VANN During your visit today, we recorded the following information about you: Rosalee Vann MD 11/11/2017 10:42 AM Signed Arnol is s/p laparoscopic cholecystectomy with cholangiograms done on 11/02/17. She states that she feels overall well. Denies fevers. Examination: abdomen is soft and benign. Wounds are well healed, no evidence of infection Impression: s/p laparoscopic cholecystectomy Plan: Patient has recovered well from her surgery, follow up as per needed. Patient to return to her primary physician for medical care. Referring Provider: SELF [200] Allergies As of Date: 11/11/2017 (No Known Allergies) Date Reviewed: 11/11/2017 Reviewed by: Rosalee Vann - Fully Assessed Reason for Visit: Post Op [174] Primary Visit Diagnosis:Surgery follow-up examination [Z09] Prescriptions as of 11/11/2017 Sig: RANITIDINE 150 MG TABLET Take 1 tablet by mouth daily * LEVOTHYROXINE 75 MCG TABLET Take 1 tablet by mouth once d* AMITRIPTYLINE 10 MG TABLET Take 1 tablet by mouth daily * PANTOPRAZOLE 20 MG TABLET,DEL* Take 1 tablet by mouth once d* Problem List As Of Date 11/11/2017 Noted Resolved Hypothyroidism [E03.9] Mixed hyperlipidemia [E78.2] ANXIETY STATE NOS [F41.1] INVALID FOR* Diarrhea [R19.7] INVALID FOR* Osteopenia [M85.80] INVALID FOR* MVP (mitral valve prolapse) [I34.1] INVALID FOR* Fibromyalgia [M79.7] INVALID FOR* Urgency of urination [R39.15] INVALID FOR* Pelvic pain in female [R10.2] INVALID FOR* Left lower quadrant pain [R10.32] INVALID FOR* Microscopic hematuria [R31.29] INVALID FOR* History of kidney stones [Z87.442] INVALID FOR* Multiple thyroid nodules [E04.2] INVALID FOR* Multinodular goiter [E04.2] INVALID FOR* Follow-up and Disposition History Recorded Encounter Status:Closed by MD ROSALEE VANN on 11/11/17 CNCO Observed: 11/11/2017 Status: COMPLETED Source: [place] 12:00 AM [facility] RE[facility] Letter Text Department of General Surgery Dr. Rosalee Vann [address] [place], [place] [address] 11/11/2017 TO WHOM IT MAY CONCERN: This is to confirm that Arnol Jason had an appointment and was seen at the [facility] in the Department of General Surgery by Dr. Rosalee Vann on 11/11/2017 and may return to work on 11/14/2017. Sincerely yours, Dr. Rosalee Flores RN 12 LEAD ELECTROCARDIOGRAM Observed: 11/04/2017 Status: F Source: [place] 2:57 PM [facility] REPOSITORY [facility] Cardiovascular Services [address] [place] [address] 12 Lead EKG 11/02/17617 MR#: [id number] Acct: [id number] Name: MARYELLEN AJSONARA Zulema Rep #: [id number] : 1955 62 From: Jose Thompson MD Attending Dr: Rosalee Vann MD Status: [place] [facility] Ordering Dr: Lopez Langston MD Date: 11/02/17 Location: [facility] Sex: F C Admitted: Test Reason : PRE OP Blood Pressure : / mmHG Vent. Rate : 090 BPM Atrial Rate : 090 BPM P-R Int : 126 ms QRS Dur : 084 ms QT Int : 378 ms P-R-T Axes : 068 041 048 degrees QTc Int : 462 ms Sinus rhythm with frequent Premature ventricular complexes Nonspecific ST abnormality Abnormal ECG Confirmed by JOSE THOMPSON MD ([id number]), television news video editor JULIANA LEE ([id number]) on 11/04/2017 2:57:30 PM Referred By: Rosalee Vann Confirmed By:JOSE THOMPSON MD 11/04/17 1457 Date Jose Thompson MD CC: Rajeev Jameson MD; Lopez Langston MD Signed CHOLANGIOGRAM/ O Observed: 11/02/2017 Status: F Source: [place] R,INITIAL 10:00 AM [facility] REPOS[facility] Imaging Services [address] [place] [address] Cholangiogram/ O R,Initial MR#: [id number] Acct: [id number] Name: ARNOL JASON Rep #: [id number] : 1955 F 62 From: Lobito Goodson MD PCP: Rajeev Jameson MD Status: [facility] Study: Cholangiogram/ O R,Initial Date of Exam: 11/02/17 Exam# [id number] Ordering Dr: Rosalee Vann MD STUDY: INTRAOPERATIVE CHOLANGIOGRAM. REASON FOR EXAM: Female, 62 years old. Laparoscopic cholecystectomy. FLUOROSCOPY TIME (if supplied): (2 seconds) minutes/seconds TECHNIQUE: An intraoperative cholangiogram was performed by the surgeon. A single image was submitted. COMPARISON: None. FINDINGS: The common bile duct is unremarkable. No intraluminal filling defect is seen. There is free flow of contrast into the duodenum. The visualized pancreatic duct is unremarkable. RAD/Cholangiogram/ O R,Initial IMPRESSION: Unremarkable intraoperative cholangiogram. Electronically Signed: Lobito Goodson MD at 10:42 EDT Tel [phone], Service support , CC: Rajeev Jameson MD; Rosalee Vann MD Handle Rounder Operator: Signed GALLBLADDER Observed: 11/02/2017 Status: F Source: [place] 7:30 AM [facility] REPOSITORY Patient: ARNOL JASON : 1955 (62/F) Acct Num: [id number] Phys: Edwar SAMANO,Rosalee Unit Num: [id number] [place]: [facility] Specimen: [id number] Received: 11/02/17 - 1055 Spec Type: GALLBLADDE TISSUES TISSUES: Gallbladder, NOS GROSS DESCRIPTION Received is one container labeled with the patient's name and designated gallbladder. The specimen consists of a gallbladder measuring 9.5 x 2.5 x 2.5 cm. The external surface is smooth and glistening. Focally, it is granular, hemorrhagic and contains cautery artifact. The lumen of the gallbladder contains greenish mucoid bile and multiple chalky, yellow calculi ranging in size from <0.1 to 1.5 cm in greatest dimension. The mucosa is bile-stained and without any mass lesions. The gallbladder wall averages 0.1 cm in thickness and is free of mass lesions. Census Enumerator sections of the gallbladder and the cystic duct are submitted in one cassette. / AM:imer 11/02/17 TC:3 CPT: 65344 HEADER OPERATION: Laparoscopic, cholecystectomy with intraoperative cholangiograms PRE-OP DIAGNOSIS: Cholecystitis, cholelithiasis without biliary obstruction TISSUE SUBMITTED: Gallbladder MICROSCOPIC DESCRIPTION Slides are reviewed. MICROSCOPIC DIAGNOSIS Gallbladder: Chronic cholecystitis, cholelithiasis and focal cholesterolosis. SJ:imer 11/03/17 Signed Gage Gardner 11/03/17 <signature on file> Performed By: #### PGALL #### [facility] [address] [place] [address], [id number] PROGRESS Observed: 10/27/2017 Status: COMPLETED Source: [place] 11:[address] [facility] [place] REPOSITORY O ID: [id number] Author: Marylou Fermin (Pa) Service: (none) Author Type: Physician Slasher Sawyer Type: Progress Notes Filed: 10/27/2017 12:00 PM Note Text: HISTORY AND PHYSICAL Arnol Jason 1955 REFERRING PHYSICIAN: [facility], [facility] CHIEF COMPLAINT: Consult (gallbladder) HPI: Arnol is a 62 year old female with a complaint of abdominal pain x 1 day. The patient experienced severe upper abdominal discomfort yesterday after eating fried shrimp, states pain was 10/10 prompting her to present to the emergency department. Patient had known cholelithiasis shown on prior imaging. She had an ultrasound performed in the emergency department which confirmed multiple gallstones as well as a small amount of pericholecystic fluid and positive sonographic Mendoza's sign suggesting cholecystitis. CBC and chemistries were unremarkable, and lipase was normal. The patient's pain improved while in the emergency department and she was discharged with plans for surgical follow-up. Patient notes she is feeling much better today, states she is not having any pain at this time. Denies fever, chills, nausea or vomiting. Patient states she is otherwise in good health. Denies any cardiac or respiratory issues. Past surgical history is significant for remote tonsillectomy as a child. She denies any problems with anesthesia in the past. SIGNIFICANT MEDICAL PROBLEMS: PAST MEDICAL HISTORY Diagnosis Date - Abdominal pain, epigastric - Diarrhea - Fibromyalgia - IBS (irritable bowel syndrome) - Mental disorder - Other and unspecified hyperlipidemia - Unspecified hypothyroidism OPERATIONS: PAST SURGICAL HISTORY Procedure Laterality Date - COLONOSCOPY W/BX 07/27/11 - EGD W/O BRSH SPECIMEN W/BX 07/27/11 - REMOVAL OF TONSILS,<12 Y/O Tonsillectomy CURRENT MEDICATIONS: Current Outpatient Prescriptions: levothyroxine (LEVOXYL) 75 mcg tablet Take 1 tablet by mouth once daily. Take one(1) tablet daily, Disp: 90 tablet Rfl: 3 amitriptyline (ELAVIL) 10 mg tablet Take 1 tablet by mouth daily at bedtime. Disp: 90 tablet Rfl: [address] (PROTONIX) 20 mg tablet Take 1 tablet by mouth once daily. Disp: 90 tablet Rfl: 3 ranitidine (ZANTAC) 150 mg tablet Take 1 tablet by mouth daily at bedtime. Disp: 30 tablet Rfl: 3 No current facility-administered medications for this visit. ALLERGIES: Review of patient's allergies indicates no known allergies. PERSONAL HISTORY: Social History Marital status: Spouse name: MAHI Years of education: 13 Number of children: 5 Occupational History Occupation Employer Comment [employer] Social History Main Topics Smoking status: Never Smoker Smokeless status: Never Used Alcohol use: No Drug use: No Sexual activity: Yes Partners with: Male control/protection: Surgical Comment: had vasectomy FAMILY HISTORY: FAMILY HISTORY Problem Relation Age of Onset - Prostate Cancer Father - Heart Father stent in heart - abdominal aortic aneurysm [OTHER] Father repaired - dimentia [OTHER] Father - Diabetes Mother - Hypertension Mother - Heart Mother stent in heart - Stroke Mother - Diabetes Paternal Grandmother - Cervical Cancer Maternal Grandmother - Cancer Maternal Grandfather bone - Breast Cancer Paternal Aunt multiple aunts with the disease REVIEW OF SYMPTOMS: The review of systems data was entered by the nurse and reviewed by me Nursing Notes: Rose Marie Herrera LPN 10/27/2017 11:04 AM Signed REVIEW OF SYSTEMS: General: The patient denies fatigue, denies weight loss, denies weight gain, denies feeling hot, and denies feelings of cold. Eyes: The patient denies glaucoma, denies eye injury/surgery, wears glasses or contacts. Ear/Nose/Throat: The patient denies allergies, denies hayfever, denies ear infections, and denies bloody noses. Cardiovascular: The patient denies chest pain, denies heart disease, denies high blood pressure,denies cardiac stent, denies prior heart attack, denies irregular heart beat, denies high cholesterol, denies poor circulation, denies heart failure, other cardiac issues, denies claudication, denies cold feet, denies peripheral arterial stent. Respiratory: The patient denies tuberculosis, denies pneumonia, denies frequent cough, denies pulmonary embolism, denies shortness of breath, and denies coughing up blood. Gastrointestinal: The patient denies difficulty swallowing, NOTES acid reflux, denies ulcers, denies vomiting, denies jaundice/hepatitis, denies gallbladder problems, denies black or tarry stools, denies hemorrhoids, denies bleeding from rectum, denies diverticulitis, denies constipation, denies diarrhea, denies loss of stool control, and denies hernias. Kidney/Bladder: The patient denies kidney stones, denies urine infections, and denies bloody urine. Skin: The patient denies a history of skin cancer, denies bleeding/changing moles, and denies a history of skin rash. Neurologic: The patient denies a history of epilepsy/convulsions, denies headaches, denies head/spinal injuries, and denies stroke/TIA. Psychiatric: The patient denies psychiatric medications, denies depression, and denies voices, denies substance abuse. Endocrine: The patient NOTES thyroid disorders, denies diabetes, and denies hormonal problems. Hematologic: The patient denies a history of bruising, denies bleeding, and denies anemia, denies blood clots. Infections: The patient denies a history of measles and mumps, denies rheumatic fever, and denies sexually transmitted diseases. Musculoskeletal: The patient denies back pain/injury, denies back problems, denies sciatica, denies knee/foot trouble, denies arthritis, or denies gout. When was patient's last Mammogram screening? N/A Last Colonoscopy: 2010 Rose Marie Fermin PA-C PHYSICAL EXAMINATION: General: The patient is 62 year old female, well nourished, well hydrated in no acute distress. The patient is oriented to time, place, and person. VITALS: Blood pressure 160/80, pulse 76, weight 61.2 kg (135 lb), last menstrual period 11/21/2007. Body mass index is 24.69 kg/(m2). HEENT: Normal cephalic, ataumatic, pupils are equally round, sclera are anicteric, mucous membranes are moist, oropharynx is clear. Neck has no masses, asymmetry or lymphadenopathy. Respiratory: Clear to auscultation and percussion. Normal respiratory excursion and pattern. Cardiac: Examination is regular rate and rhythm. Abdominal exam: Normoactive bowel sounds, Soft, negative Mendoza's sign, with no palpable masses. No hepatosplenomegaly. No palpable hernias. Rectal exam: exam deferred Extremities: no clubbing, cyanosis or edema. No adenopathy. Other: LABORATORY VALUES: As Noted RADIOLOGIC STUDIES: As Noted Above Assessment IMPRESSION: Biliary colic, Cholelithiasis PLAN: We will plan for laparoscopic cholecystectomy with intraoperative cholangiogram. Patient has met Dr. Vann in the past and is requesting her for surgery. The planned surgical procedure was discussed extensively with the patient. The risks, benefits, anticipated outcomes and possible complications were mentioned. My staff has also explained the procedure in understandable terms and the patient was given the option to take printed material concerning the planned procedure. The patient had the opportunity to ask questions concerning the planned procedure. The patient freely consents to the planned procedure. We discussed importance of staying on a bland, low-fat diet with very small meals to prevent another flare-up while awaiting surgery. Patient should contact us immediately if any worsening symptoms Planned Procedure: LAPAROSCOPIC CHOLECYSTECTOMY WITH INTRAOPERATIVE CHOLANGIOGRAM - 56158-922 Planned antibiotic: Ancef 2gm IVPB fire protection engineer to OR SCDs needed - Yes Slasher Sawyer Needed - Yes Diagnoses: (K80.00) Calculus of gallbladder with cholecystitis without biliary obstruction, unspecified cholecystitis acuity (primary encounter diagnosis) (R10.13) Epigastric pain A letter was sent to Dr. RAJEEV JAMESON MD indicating the above finding for this patient. I spent 25 minutes in the visit, with more than 50% of the total ogno-ii-mpac time of the visit in counseling / coordination of care. Marylou Fermin PA-C CNOV Observed: 10/27/2017 Status: COMPLETED Source: [place] 10:00 AM [facility] REPOSITORY Office Visit (GENSWS) ARNOL JASON ([id number]) 1955 F Date Time Provider Department 10/27/17 10:00 AM MARYLOU FERMIN (PA) During your visit today, we recorded the following information about you: Pulse Blood pressure Weight 76/minute 160/80 61.2 kg Marylou Fermin PA-C 10/27/2017 12:00 PM Signed HISTORY AND PHYSICAL Arnol Jason 1955 REFERRING PHYSICIAN: [facility] CHIEF COMPLAINT: Consult (gallbladder) HPI: Arnol is a 62 year old female with a complaint of abdominal pain x 1 day. The patient experienced severe upper abdominal discomfort yesterday after eating fried shrimp, states pain was 10/10 prompting her to present to the emergency department. Patient had known cholelithiasis shown on prior imaging. She had an ultrasound performed in the emergency department which confirmed multiple gallstones as well as a small amount of pericholecystic fluid and positive sonographic Mendoza's sign suggesting cholecystitis. CBC and chemistries were unremarkable, and lipase was normal. The patient's pain improved while in the emergency department and she was discharged with plans for surgical follow-up. Patient notes she is feeling much better today, states she is not having any pain at this time. Denies fever, chills, nausea or vomiting. Patient states she is otherwise in good health. Denies any cardiac or respiratory issues. Past surgical history is significant for remote tonsillectomy as a child. She denies any problems with anesthesia in the past. SIGNIFICANT MEDICAL PROBLEMS: PAST MEDICAL HISTORY Diagnosis Date - Abdominal pain, epigastric - Diarrhea - Fibromyalgia - IBS (irritable bowel syndrome) - Mental disorder - Other and unspecified hyperlipidemia - Unspecified hypothyroidism OPERATIONS: PAST SURGICAL HISTORY Procedure Laterality Date - COLONOSCOPY W/BX 07/27/11 - EGD W/O BRSH SPECIMEN W/BX 07/27/11 - REMOVAL OF TONSILS,ANDlt;13 Y/O Tonsillectomy CURRENT MEDICATIONS: Current Outpatient Prescriptions: levothyroxine (LEVOXYL) 75 mcg tablet Take 1 tablet by mouth once daily. Take one(1) tablet daily, Disp: 90 tablet Rfl: 3 amitriptyline (ELAVIL) 10 mg tablet Take 1 tablet by mouth daily at bedtime. Disp: 90 tablet Rfl: [address] (PROTONIX) 20 mg tablet Take 1 tablet by mouth once daily. Disp: 90 tablet Rfl: 3 ranitidine (ZANTAC) 150 mg tablet Take 1 tablet by mouth daily at bedtime. Disp: 30 tablet Rfl: 3 No current facility-administered medications for this visit. ALLERGIES: Review of patient's allergies indicates no known allergies. PERSONAL HISTORY: Social History Marital status: Spouse name: MAHI Years of education: 13 Number of children: 5 Occupational History Occupation Employer Comment [employer] Social History Main Topics Smoking status: Never Smoker Smokeless status: Never Used Alcohol use: No Drug use: No Sexual activity: Yes Partners with: Male control/protection: Surgical Comment: had vasectomy FAMILY HISTORY: FAMILY HISTORY Problem Relation Age of Onset - Prostate Cancer Father - Heart Father stent in heart - abdominal aortic aneurysm [OTHER] Father repaired - dimentia [OTHER] Father - Diabetes Mother - Hypertension Mother - Heart Mother stent in heart - Stroke Mother - Diabetes Paternal Grandmother - Cervical Cancer Maternal Grandmother - Cancer Maternal Grandfather bone - Breast Cancer Paternal Aunt multiple aunts with the disease REVIEW OF SYMPTOMS: The review of systems data was entered by the nurse and reviewed by me Nursing Notes: Rose Marie Herrera LPN 10/27/2017 11:04 AM Signed REVIEW OF SYSTEMS: General: The patient denies fatigue, denies weight loss, denies weight gain, denies feeling hot, and denies feelings of cold. Eyes: The patient denies glaucoma, denies eye injury/surgery, wears glasses or contacts. Ear/Nose/Throat: The patient denies allergies, denies hayfever, denies ear infections, and denies bloody noses. Cardiovascular: The patient denies chest pain, denies heart disease, denies high blood pressure,denies cardiac stent, denies prior heart attack, denies irregular heart beat, denies high cholesterol, denies poor circulation, denies heart failure, other cardiac issues, denies claudication, denies cold feet, denies peripheral arterial stent. Respiratory: The patient denies tuberculosis, denies pneumonia, denies frequent cough, denies pulmonary embolism, denies shortness of breath, and denies coughing up blood. Gastrointestinal: The patient denies difficulty swallowing, NOTES acid reflux, denies ulcers, denies vomiting, denies jaundice/hepatitis, denies gallbladder problems, denies black or tarry stools, denies hemorrhoids, denies bleeding from rectum, denies diverticulitis, denies constipation, denies diarrhea, denies loss of stool control, and denies hernias. Kidney/Bladder: The patient denies kidney stones, denies urine infections, and denies bloody urine. Skin: The patient denies a history of skin cancer, denies bleeding/changing moles, and denies a history of skin rash. Neurologic: The patient denies a history of epilepsy/convulsions, denies headaches, denies head/spinal injuries, and denies stroke/TIA. Psychiatric: The patient denies psychiatric medications, denies depression, and denies voices, denies substance abuse. Endocrine: The patient NOTES thyroid disorders, denies diabetes, and denies hormonal problems. Hematologic: The patient denies a history of bruising, denies bleeding, and denies anemia, denies blood clots. Infections: The patient denies a history of measles and mumps, denies rheumatic fever, and denies sexually transmitted diseases. Musculoskeletal: The patient denies back pain/injury, denies back problems, denies sciatica, denies knee/foot trouble, denies arthritis, or denies gout. When was patient's last Mammogram screening? N/A Last Colonoscopy: 2010 Rose Marie Fermin PA-C PHYSICAL EXAMINATION: General: The patient is 62 year old female, well nourished, well hydrated in no acute distress. The patient is oriented to time, place, and person. VITALS: Blood pressure 160/80, pulse 76, weight 61.2 kg (135 lb), last menstrual period 11/21/2007. Body mass index is 24.69 kg/(m2). HEENT: Normal cephalic, ataumatic, pupils are equally round, sclera are anicteric, mucous membranes are moist, oropharynx is clear. Neck has no masses, asymmetry or lymphadenopathy. Respiratory: Clear to auscultation and percussion. Normal respiratory excursion and pattern. Cardiac: Examination is regular rate and rhythm. Abdominal exam: Normoactive bowel sounds, Soft, negative Mendoza's sign, with no palpable masses. No hepatosplenomegaly. No palpable hernias. Rectal exam: exam deferred Extremities: no clubbing, cyanosis or edema. No adenopathy. Other: LABORATORY VALUES: As Noted RADIOLOGIC STUDIES: As Noted Above Assessment IMPRESSION: Biliary colic, Cholelithiasis PLAN: We will plan for laparoscopic cholecystectomy with intraoperative cholangiogram. Patient has met Dr. Vann in the past and is requesting her for surgery. The planned surgical procedure was discussed extensively with the patient. The risks, benefits, anticipated outcomes and possible complications were mentioned. My staff has also explained the procedure in understandable terms and the patient was given the option to take printed material concerning the planned procedure. The patient had the opportunity to ask questions concerning the planned procedure. The patient freely consents to the planned procedure. We discussed importance of staying on a bland, low-fat diet with very small meals to prevent another flare-up while awaiting surgery. Patient should contact us immediately if any worsening symptoms Planned Procedure: LAPAROSCOPIC CHOLECYSTECTOMY WITH INTRAOPERATIVE CHOLANGIOGRAM - 85658-836 Planned antibiotic: Ancef 2gm IVPB fire protection engineer to OR SCDs needed - Yes Slasher Sawyer Needed - Yes Diagnoses: (K80.00) Calculus of gallbladder with cholecystitis without biliary obstruction, unspecified cholecystitis acuity (primary encounter diagnosis) (R10.13) Epigastric pain A letter was sent to Dr. RAJEEV JAMESON MD indicating the above finding for this patient. I spent 25 minutes in the visit, with more than 50% of the total gunv-tw-aavm time of the visit in counseling / coordination of care. ANT Hall LPN 10/27/2017 11:04 AM Signed REVIEW OF SYSTEMS: General: The patient denies fatigue, denies weight loss, denies weight gain, denies feeling hot, and denies feelings of cold. Eyes: The patient denies glaucoma, denies eye injury/surgery, wears glasses or contacts. Ear/Nose/Throat: The patient denies allergies, denies hayfever, denies ear infections, and denies bloody noses. Cardiovascular: The patient denies chest pain, denies heart disease, denies high blood pressure,denies cardiac stent, denies prior heart attack, denies irregular heart beat, denies high cholesterol, denies poor circulation, denies heart failure, other cardiac issues, denies claudication, denies cold feet, denies peripheral arterial stent. Respiratory: The patient denies tuberculosis, denies pneumonia, denies frequent cough, denies pulmonary embolism, denies shortness of breath, and denies coughing up blood. Gastrointestinal: The patient denies difficulty swallowing, NOTES acid reflux, denies ulcers, denies vomiting, denies jaundice/hepatitis, denies gallbladder problems, denies black or tarry stools, denies hemorrhoids, denies bleeding from rectum, denies diverticulitis, denies constipation, denies diarrhea, denies loss of stool control, and denies hernias. Kidney/Bladder: The patient denies kidney stones, denies urine infections, and denies bloody urine. Skin: The patient denies a history of skin cancer, denies bleeding/changing moles, and denies a history of skin rash. Neurologic: The patient denies a history of epilepsy/convulsions, denies headaches, denies head/spinal injuries, and denies stroke/TIA. Psychiatric: The patient denies psychiatric medications, denies depression, and denies voices, denies substance abuse. Endocrine: The patient NOTES thyroid disorders, denies diabetes, and denies hormonal problems. Hematologic: The patient denies a history of bruising, denies bleeding, and denies anemia, denies blood clots. Infections: The patient denies a history of measles and mumps, denies rheumatic fever, and denies sexually transmitted diseases. Musculoskeletal: The patient denies back pain/injury, denies back problems, denies sciatica, denies knee/foot trouble, denies arthritis, or denies gout. When was patient's last Mammogram screening? N/A Last Colonoscopy: 2010 Rose Marie Herrera [employer] Referring Provider: [facility] [[id number]] Allergies As of Date: 10/27/2017 (No Known Allergies) Date Reviewed: 10/27/2017 Reviewed by: Danay Flores RN - Fully Assessed Reason for Visit: Consult [173] Cmt: gallbladder Primary Visit Diagnosis:Calculus of gallbladder with cholecystitis without biliary obstruction, unspecified cholecystitis acuity [K80.00] Other Visit Diagnosis:Epigastric pain [R10.13] Prescriptions as of 10/27/2017 Sig: LEVOTHYROXINE 75 MCG TABLET Take 1 tablet by mouth once d* AMITRIPTYLINE 10 MG TABLET Take 1 tablet by mouth daily * PANTOPRAZOLE 20 MG TABLET,DEL* Take 1 tablet by mouth once d* RANITIDINE 150 MG TABLET Take 1 tablet by mouth daily * Medication notes this encounter RANITIDINE 150 MG TABLET >> Danay Flores RN 10/27/2017 10:31 AM >> DANAY FLORES RN [facility] Oct 27, 2017 10:31 AM Not taking Problem List As Of Date 10/27/2017 Noted Resolved Hypothyroidism [E03.9] Mixed hyperlipidemia [E78.2] ANXIETY STATE NOS [F41.1] INVALID FOR* Diarrhea [R19.7] INVALID FOR* Osteopenia [M85.80] INVALID FOR* MVP (mitral valve prolapse) [I34.1] INVALID FOR* Fibromyalgia [M79.7] INVALID FOR* Urgency of urination [R39.15] INVALID FOR* Pelvic pain in female [R10.2] INVALID FOR* Left lower quadrant pain [R10.32] INVALID FOR* Microscopic hematuria [R31.29] INVALID FOR* History of kidney stones [Z87.442] INVALID FOR* Multiple thyroid nodules [E04.2] INVALID FOR* Multinodular goiter [E04.2] INVALID FOR* Visit Notes: >> Rose Marie Herrera LPN Jeannie Oct 27, 2017 11:03 AM Status: Signed REVIEW OF SYSTEMS: General: The patient denies fatigue, denies weight loss, denies weight gain, denies feeling hot, and denies feelings of cold. Eyes: The patient denies glaucoma, denies eye injury/surgery, wears glasses or contacts. Ear/Nose/Throat: The patient denies allergies, denies hayfever, denies ear infections, and denies bloody noses. Cardiovascular: The patient denies chest pain, denies heart disease, denies high blood pressure,denies cardiac stent, denies prior heart attack, denies irregular heart beat, denies high cholesterol, denies poor circulation, denies heart failure, other cardiac issues, denies claudication, denies cold feet, denies peripheral arterial stent. Respiratory: The patient denies tuberculosis, denies pneumonia, denies frequent cough, denies pulmonary embolism, denies shortness of breath, and denies coughing up blood. Gastrointestinal: The patient denies difficulty swallowing, NOTES acid reflux, denies ulcers, denies vomiting, denies jaundice/hepatitis, denies gallbladder problems, denies black or tarry stools, denies hemorrhoids, denies bleeding from rectum, denies diverticulitis, denies constipation, denies diarrhea, denies loss of stool control, and denies hernias. Kidney/Bladder: The patient denies kidney stones, denies urine infections, and denies bloody urine. Skin: The patient denies a history of skin cancer, denies bleeding/changing moles, and denies a history of skin rash. Neurologic: The patient denies a history of epilepsy/convulsions, denies headaches, denies head/spinal injuries, and denies stroke/TIA. Psychiatric: The patient denies psychiatric medications, denies depression, and denies voices, denies substance abuse. Endocrine: The patient NOTES thyroid disorders, denies diabetes, and denies hormonal problems. Hematologic: The patient denies a history of bruising, denies bleeding, and denies anemia, denies blood clots. Infections: The patient denies a history of measles and mumps, denies rheumatic fever, and denies sexually transmitted diseases. Musculoskeletal: The patient denies back pain/injury, denies back problems, denies sciatica, denies knee/foot trouble, denies arthritis, or denies gout. When was patient's last Mammogram screening? N/A Last Colonoscopy: 2010 Rose Marie Herrera LPN Follow-up and Disposition History Recorded Encounter Status:Closed by MARYLOU FERMIN PA-C on 10/27/17 DISCHARGE INSTRUCTION Observed: 10/27/2017 Status: F Source: [place] 1:47 AM [facility] REPOSITORY [facility] Medical Records Department [address] [place] [address] Discharge Instruction 10/27/17 0144 MR#: [id number] Acct: [id number] Name: ARNOL JASON Rep #: [id number] : 1955 62 From: Hoda Rivas MD PCP: Rajeev Jameson MD Status: REG ER ED Disposition - Plan for ED Patient: Chief Complaint: Abd Pain Instructions: ED Abdominal Pain Gallstone Poss Prescriptions: Hydrocodone Bitart/Apap 5-325 [[place] 5/325] 1 tablet PO Q6H PRN PRN 3 Days #12 tablet PRN Reason: Pain Referrals: Rajeev Jameson MD [Primary Care Provider] - Carlos Obrien MD [STAFF PHYSICIAN] - What to do if you have Problems For any increased pain, shortness of breath, bleeding, nausea or vomiting, chest pain, or any unexpected problems, contact your Primary Care Provider. Call [facility] ([phone]) or report to the closest Emergency Room. Call 911 if necessary. 10/27/17 0147 <Electronically signed by Hoda Rivas MD> Date Hoda Rivas MD Cosigner Signature (If Indicated): Date CC: Rajeev Jameson MD EMERGENCY DEPARTMENT Observed: 10/27/2017 Status: F Source: [place] SUMMARY 1:44 AM [facility] REPOSITORY [facility] Medical Records Department [address] [place] [address] Emergency Department Summary 10/26/17 2334 MR#: [id number] Acct: [id number] Name: ARNOL JASON Rep #: [id number] : 1955 62 From: Hoda Rivas MD PCP: Rajeev Jameson MD Status: REG ER - ER Visit Summary Date of Service: 10/26/17 Chief Complaint: Abdominal pain History of Present Illness: The patient is a 62 F presenting with right upper quadrant abdominal pain which began 2-3 hours ago. Patient states she was eating fried shrimp and began having pain in her right upper quadrant. She states she has been diagnosed with gallstones in the past. She denies nausea, vomiting, diarrhea. Denies fever. Denies other complaints. Physical Examination: Vitals are stable. Patient is afebrile. Alert no acute distress. HEENT exam is unremarkable. Neck is supple. Lungs are clear and equal bilaterally. Heart is regular rate and rhythm. Abdomen is soft right upper quadrant tenderness, no rebound or guarding. Extremities are unremarkable. Skin is warm and dry. No focal neurologic deficit. Remainder of exam is unremarkable. Emergency Department Course and Treatment: Patient is given morphine, Zofran, IV fluids. CBC, chemistries unremarkable. Liver lipase are normal. Ultrasound of gallbladder shows multiple gallstones. A small amount of pericholecystic fluid is present and there is a reportedly positive sonographic Mendoza sign, suggesting cystitis. No bile duct dilatation. Patient states her pain has resolved. Findings were discussed with Dr. Obrien. He will see her for close outpatient follow-up. She is given a prescription for [place]. Advised return to ED for worsening complaints. Disposition: Discharge home Impression: Abdominal pain, cholelithiasis This note was generated with [employer] dictation software. It may contain incorrect words, spelling, and punctuation that were not noted in review of the chart prior to signing ED Disposition - Plan for ED Patient: Chief Complaint: Abd Pain Referrals: Rajeev Jameson MD [Primary Care Provider] - What to do if you have Problems For any increased pain, shortness of breath, bleeding, nausea or vomiting, chest pain, or any unexpected problems, contact your Primary Care Provider. Call [facility] ([phone]) or report to the closest Emergency Room. Call 911 if necessary. 10/27/17 0144 <Electronically signed by Hoda Rivas MD> Date Hoda Rivas MD Cosigner Signature (If Indicated): Date CC: Rajeev Jameson MD CBC W/DIFF, AUTOMATED Collected: 10/26/2017 Status: F Source: [place] 11:15 PM [facility] REPOSITORY TYPE CODE TESTS RESULT OUT OF RANGE REFERENCE UNITS LAB L100.1000 4.4-11.0 K/mm3 Normal WBC 7.9 LAB L100.1200 4.2-5.4 M/mm3 Normal RBC 4.24 LAB L100.1300 12.0-15.0 g/dl Normal HGB 12.5 LAB L100.1400 37-47 % Normal HCT 37.3 LAB L100.1500 81-99 fL Normal MCV 88.0 LAB L100.1600 27.0-32.0 pg Normal MCH 29.5 LAB L100.1700 32-36 g/gl Normal MCHC 33.5 LAB L100.1810 11.6-14.6 % Normal RDW CV 12.9 LAB L100.1820 35.1-43.9 fl Normal RDW SD 41.6 LAB L100.1900 150-450 K/mm3 Normal PLT 259 LAB L100.2000 6.2-12.0 fl Normal MPV 10.2 LAB L100.2100 47-70 % Low NEUT% 39.7 LAB L100.2200 19-41 % High LY% 49.4 LAB L100.2300 0-10 % Normal MONO% 7.8 LAB L100.2400 0-5 % Normal EO% 2.2 LAB L100.2500 0-1 % Normal BASO% 0.8 LAB L100.2550 0.0-0.9 % Normal IM GRAN % 0.100 Result Comment: IG% - Immature Granulocytes (promyelocytes, myelocytes and metamyelocytes) > 1% indicates that a LEFT SHIFT is Present. LAB L100.2620 2.0-7.7 X10 3/uL Normal Absolute Neut 3.1 LAB L100.2720 0.83-4.51 X10 3/ul Normal Absolute Lymph 3.88 Performed By: #### L100.0100 #### [facility] [address] [facility] [place], [place], [id number] BASIC METABOLIC Collected: 10/26/2017 Status: F Source: [place] PROFILE (BMP) 11:15 PM [facility] REPOS[facility]ORY TYPE CODE TESTS RESULT OUT OF RANGE REFERENCE UNITS LAB L501.0100 74-106 mg/dL Normal GLU 96 Result Comment: Please note revised GLUCOSE reference range effective 2017. LAB L501.1000 7-18 mg/dL Normal BUN 15 LAB L501.1100 0.55-1.02 mg/dL Normal CREAT,SERUM 0.72 Result Comment: The validity of the calculated GFR AND GFRAA in patients over 70 years has not been determined. Clinical correlation is essential. LAB L501.1110 >60 mL/min Normal EST GFR 88 Result Comment: Non- GFR Calc LAB L501.1115 >60 mL/min Normal EST GFR - AA 107 Result Comment: GFR Calc LAB L501.1255 ml/min Normal Estimated CRCL 61.92 LAB L501.1300 10-20 RATIO High BUN/CRE 21.0 LAB L501.2200 8.5-10 mg/dL Normal .1 CA 8.7 LAB L501.5300 136-14 mmol/L Normal 5 NA 144 LAB L501.5600 3.5-5. mmol/L Normal 1 K 3.8 LAB L501.5900 98-107 mmol/L High CL 110 LAB L501.6100 21.0-3 mmol/L Normal 2.0 CO2 26.0 LAB L501.6200 5-15 Normal GAP 8 Performed By: #### L500.2500, L500.3400, L501.2450 #### [facility] [address] [facility] [place], [place], [id number] LIVER PROFILE Collected: 10/26/2017 Status: F Source: [place] 11:15 PM [facility] REPOS[facility]ORY TYPE CODE TESTS RESULT OUT OF RANGE REFERENCE UNITS LAB L501.1500 6.4-8.2 g/dL Normal T PROT 7.8 LAB L501.1800 3.2-5.0 g/dL Normal ALB 4.1 LAB L501.1950 2.2-4.2 g/dL Normal GLOB 3.7 LAB L501.4100 15-37 U/L Normal AST 17 LAB L501.4305 45-117 U/L Normal ALK P 90 LAB L501.4405 13-56 U/L Normal ALT 26 Result Comment: Please note revised ALT reference range effective 2017. LAB L501.4600 0.20-1.00 mg/dL Normal T BILI 0.20 LAB L501.4700 0.00-0.30 mg/dL Normal D BILI 0.08 Performed By: #### L500.2500, L500.3400, L501.2450 #### [facility] [address] [place], [address] LIPASE Collected: 10/26/2017 Status: F Source: [place] 11:15 PM [facility] REPOS[facility] TYPE CODE TESTS RESULT OUT OF RANGE REFERENCE UNITS LAB L501.2450 73-393 U/L Normal LIPASE 157 Performed By: #### L500.2500, L500.3400, L501.2450 #### [facility] [address] [facility], [address] GALLBLADDER Observed: 10/26/2017 Status: F Source: [place] 11:12 PM [facility] REPOSITORY [facility] Imaging Services [address] [place], [place] [address] Gallbladder MR#: [id number] Acct: [id number] Name: ARNOL JASON Zulema Rep #: [id number] : 1955 F 62 From: Sacha Hope MD PCP: Rajeev Jameson MD Status: REG ER Study: Gallbladder Date of Exam: 10/26/17 Exam# [id number] Ordering Dr: Hoda Rivas MD STUDY: ABDOMINAL ULTRASOUND - RIGHT UPPER QUADRANT REASON FOR VISIT: Female, 62 years old. Right upper quadrant pain. TECHNIQUE: Ultrasound evaluation of the right upper quadrant was performed with real-time and static callahan-scale imaging. TECHNICAL QUALITY: Adequate. Examination limited by bowel gas. COMPARISON: None. FINDINGS: Liver: The liver measures 16 cm. There is normal echogenicity of the liver. The bile ducts are within normal limits. There is hepatic color flow. The direction of portal flow is hepatopetal. There is no demonstrated mass lesion. Gallbladder: Normal distended gallbladder. The gallbladder wall measures 2.4 mm. There is a positive sonographic Mendoza's sign, according to the eeg technologist notes. There is pericholecystic fluid. There are multiple gallstones. Common Bile Duct (C.B.D.): The common bile duct measures 4.4 mm. Pancreas: Normal size of the visualized pancreas. The tail of the pancreas is largely obscured. There is normal echogenicity of the pancreas. There is no demonstrated pancreatic mass or cyst. Right Kidney: Normal size of the right kidney. The right kidney measures 9.9 x 4.3 x 2.8 cm. Normal renal cortex. The right cortex measures 1.2 cm. There is no demonstrated renal mass or cyst. There is no right hydronephrosis. US/Gallbladder IMPRESSION: Multiple gallstones. A small amount of pericholecystic fluid is present and there is a reportedly positive sonographic Mendoza sign, suggesting cystitis. No bile duct dilatation. Electronically Signed: Sacha Hope MD at 0:56 EDT , Service support , CC: Hoda Rivas MD; Rajeev Jameson MD Handle Rounder Operator: Signed PROGRESS Observed: 10/21/2017 Status: COMPLETED Source: [place] 2:15 PM [facility] REPOS[facility] O ID: [id number] Author: Rajeev Jameson Service: (none) Author Type: Physician Type: Progress Notes Filed: 10/21/2017 5:25 PM Note Text: Reason for Visit Patient presents with: Same Day Appointment: left neck pain to touch Arnol Jason is a 62 year old female who presents here today for Above Complaints.. Health Maintenance HEPATITIS C SCREENING HPI She has pain in the left carotid artery area at the area of the para tracheal side. Going on for 5 days and mostly just tender , notices more when she wakes up , the rest of the day she is fine. No dizziness as of now, after the iman maneuver No problem-specific Assessment AND Plan notes found for this encounter. PAST MEDICAL HISTORY Diagnosis Date - Abdominal pain, epigastric - Diarrhea - Fibromyalgia - IBS (irritable bowel syndrome) - Mental disorder - Other and unspecified hyperlipidemia - Unspecified hypothyroidism PAST SURGICAL HISTORY Procedure Laterality Date - COLONOSCOPY W/BX 07/27/11 - EGD W/O BRSH SPECIMEN W/BX 07/27/11 - REMOVAL OF TONSILS,<12 Y/O Tonsillectomy FAMILY HISTORY Problem Relation Age of Onset - Prostate Cancer Father - Heart Father stent in heart - abdominal aortic aneurysm [OTHER] Father repaired - dimentia [OTHER] Father - Diabetes Mother - Hypertension Mother - Heart Mother stent in heart - Stroke Mother - Diabetes Paternal Grandmother - Cervical Cancer Maternal Grandmother - Cancer Maternal Grandfather bone - Breast Cancer Paternal Aunt multiple aunts with the disease Social History Substance Use Topics - Smoking status: Never Smoker - Smokeless tobacco: Never Used - Alcohol use No Past medical history, appointments, medications, allergies reviewed. Pertinent Lab/Diagnostic Studies are reviewed and discussed today Current Outpatient Prescriptions: - ranitidine (ZANTAC) 150 mg tablet - levothyroxine (LEVOXYL) 75 mcg tablet - amitriptyline (ELAVIL) 10 mg tablet - pantoprazole DR (PROTONIX) 20 mg tablet Review of Systems CONSTITUTIONAL: No fevers, chills night sweats, unintended weight loss CARDIOVASCULAR: No chest pain, dyspnea, palpitations, orthopnea, PND, ankle edema. PULM: No dyspnea, unexplained cough. GI: No dysphagia/odynophagia, problematic reflux, constipation, diarrhea, changes in stool habits, hematochezia, melena. : No new urinary complaints, including dysuria, gross hematuria or pyuria. NEURO: No new balance problems, peripheral weakness/paresthesias or numbness of concern. Physical Exam BP 130/80 (BP Site: Left Arm, BP Position: Sitting, BP Cuff Size: Regular Adult) Resp 12 Ht 157.5 cm (5' 2) Wt 59.9 kg (132 lb) LMP 11/21/2007 BMI 24.14 kg/m2 General appearance: Well appearing, alert, in no acute distress, well nourished. Skin: Skin color, texture, turgor normal, no suspicious rashes or lesions Neck: no abnormality except tenderness in the left carotids artery region Head: Normocephalic, no masses, lesions, tenderness or abnormalities Eyes: Anicteric sclera. Pupils are equally round and reactive to light. Extraocular movements are intact. Lungs: Lungs clear to auscultation. No wheezing, rhonchi, rales Heart: RRR without murmur, gallop, or rubs. ASSESSMENT/PLAN: 1. Neck pain - ICD9: 723.1, ICD10: M54.2 (primary diagnosis) Unclear, the area of pain is in the carotids. If does not resolve will do ct 2. Gastroesophageal reflux disease without esophagitis - ICD9: 530.81, ICD10: K21.9 - Discussed lifestyle modifications including losing weight, limiting caffeine, no meals three hours before sleep and head of bed elevation 3. Acquired hypothyroidism - ICD9: 244.9, ICD10: E03.9 - Instructed patient on importance of taking on an empty stomach either first thing in the morning or at bedtime. 4. Mixed hyperlipidemia - ICD9: 272.2, ICD10: E78.2 - good control - Continue current medication. RAJEEV JAMESON MD CNOV Observed: 10/21/2017 Status: COMPLETED Source: [place] 2:00 PM [facility] RE[facility] Office Visit (INTMWS) ARNOL JASON ([id number]) 1955 F Date Time Provider Department 10/21/17 2:00 PM RAJEEV JAMESON INTMWS During your visit today, we recorded the following information about you: Respiration Blood pressure Weight Height 12/minute 130/80 59.9 kg 1.575 m RAJEEV JAMESON MD 10/21/2017 5:25 PM Signed Reason for Visit Patient presents with: Same Day Appointment: left neck pain to touch Arnol Jason is a 62 year old female who presents here today for Above Complaints.. Health Maintenance HEPATITIS C SCREENING HPI She has pain in the left carotid artery area at the area of the para tracheal side. Going on for 5 days and mostly just tender , notices more when she wakes up , the rest of the day she is fine. No dizziness as of now, after the iman maneuver No problem-specific Assessment ANDamp; Plan notes found for this encounter. PAST MEDICAL HISTORY Diagnosis Date - Abdominal pain, epigastric - Diarrhea - Fibromyalgia - IBS (irritable bowel syndrome) - Mental disorder - Other and unspecified hyperlipidemia - Unspecified hypothyroidism PAST SURGICAL HISTORY Procedure Laterality Date - COLONOSCOPY W/BX 07/27/11 - EGD W/O BRSH SPECIMEN W/BX 07/27/11 - REMOVAL OF TONSILS,ANDlt;12 Y/O Tonsillectomy FAMILY HISTORY Problem Relation Age of Onset - Prostate Cancer Father - Heart Father stent in heart - abdominal aortic aneurysm [OTHER] Father repaired - dimentia [OTHER] Father - Diabetes Mother - Hypertension Mother - Heart Mother stent in heart - Stroke Mother - Diabetes Paternal Grandmother - Cervical Cancer Maternal Grandmother - Cancer Maternal Grandfather bone - Breast Cancer Paternal Aunt multiple aunts with the disease Social History Substance Use Topics - Smoking status: Never Smoker - Smokeless tobacco: Never Used - Alcohol use No Past medical history, appointments, medications, allergies reviewed. Pertinent Lab/Diagnostic Studies are reviewed and discussed today Current Outpatient Prescriptions: - ranitidine (ZANTAC) 150 mg tablet - levothyroxine (LEVOXYL) 75 mcg tablet - amitriptyline (ELAVIL) 10 mg tablet - pantoprazole DR (PROTONIX) 20 mg tablet Review of Systems CONSTITUTIONAL: No fevers, chills night sweats, unintended weight loss CARDIOVASCULAR: No chest pain, dyspnea, palpitations, orthopnea, PND, ankle edema. PULM: No dyspnea, unexplained cough. GI: No dysphagia/odynophagia, problematic reflux, constipation, diarrhea, changes in stool habits, hematochezia, melena. : No new urinary complaints, including dysuria, gross hematuria or pyuria. NEURO: No new balance problems, peripheral weakness/paresthesias or numbness of concern. Physical Exam BP 130/80 (BP Site: Left Arm, BP Position: Sitting, BP Cuff Size: Regular Adult) Resp 12 Ht 157.5 cm (5' 2ANDquot;) Wt 59.9 kg (132 lb) LMP 11/21/2007 BMI 24.14 kg/m2 General appearance: Well appearing, alert, in no acute distress, well nourished. Skin: Skin color, texture, turgor normal, no suspicious rashes or lesions Neck: no abnormality except tenderness in the left carotids artery region Head: Normocephalic, no masses, lesions, tenderness or abnormalities Eyes: Anicteric sclera. Pupils are equally round and reactive to light. Extraocular movements are intact. Lungs: Lungs clear to auscultation. No wheezing, rhonchi, rales Heart: RRR without murmur, gallop, or rubs. ASSESSMENT/PLAN: 1. Neck pain - ICD9: 723.1, ICD10: M54.2 (primary diagnosis) Unclear, the area of pain is in the carotids. If does not resolve will do ct 2. Gastroesophageal reflux disease without esophagitis - ICD9: 530.81, ICD10: K21.9 - Discussed lifestyle modifications including losing weight, limiting caffeine, no meals three hours before sleep and head of bed elevation 3. Acquired hypothyroidism - ICD9: 244.9, ICD10: E03.9 - Instructed patient on importance of taking on an empty stomach either first thing in the morning or at bedtime. 4. Mixed hyperlipidemia - ICD9: 272.2, ICD10: E78.2 - good control - Continue current medication. RAJEEV JAMESON MD Referring Provider: SELF [200] Allergies As of Date: 10/21/2017 (No Known Allergies) Date Reviewed: 10/21/2017 Reviewed by: Kassie Gonzales LPN - Fully Assessed Reason for Visit: Same Day Appointment [255] Cmt: left neck pain to touch Primary Visit Diagnosis:Neck pain [M54.2] Other Visit Diagnoses:Gastroesophageal reflux disease without esophagitis [K21.9] Acquired hypothyroidism [E03.9] Mixed hyperlipidemia [E78.2] Prescriptions as of 10/21/2017 Sig: RANITIDINE 150 MG TABLET Take 1 tablet by mouth daily * LEVOTHYROXINE 75 MCG TABLET Take 1 tablet by mouth once d* AMITRIPTYLINE 10 MG TABLET Take 1 tablet by mouth daily * PANTOPRAZOLE 20 MG TABLET,DEL* Take 1 tablet by mouth once d* Problem List As Of Date 10/21/2017 Noted Resolved Hypothyroidism [E03.9] Mixed hyperlipidemia [E78.2] ANXIETY STATE NOS [F41.1] INVALID FOR* Diarrhea [R19.7] INVALID FOR* Osteopenia [M85.80] INVALID FOR* MVP (mitral valve prolapse) [I34.1] INVALID FOR* Fibromyalgia [M79.7] INVALID FOR* Urgency of urination [R39.15] INVALID FOR* Pelvic pain in female [R10.2] INVALID FOR* Left lower quadrant pain [R10.32] INVALID FOR* Microscopic hematuria [R31.29] INVALID FOR* History of kidney stones [Z87.442] INVALID FOR* Multiple thyroid nodules [E04.2] INVALID FOR* Multinodular goiter [E04.2] INVALID FOR* Encounter Status:Closed by RAJEEV JAMESON MD on 10/21/17 PROGRESS Observed: 10/05/2017 Status: COMPLETED Source: [place] 8:[address] [facility] [place] REPOSITORY O ID: [id number] Author: Olivia Bates Service: (none) Author Type: Physician Type: Progress Notes Filed: 10/05/2017 9:29 AM Note Text: Marketing Information Coordinator offered: Patient declines. Arnol Jason is a 62 year old who presents for her annual gynecologic exam without complaints. Middle daughter getting this year. Has 3 grandchildren and [address]. Works at [employer] but thinking of retiring this year. Postmenopausal: Yes HRT use: No. Last Pap: 2016 normal HPV: 2016 negative History of abnormal pap: No Last mammogram: 2017 normal History of abnormal mammogram: No Sexually active: Yes History of STDS: None Patient concerns for STD exposure: No. Pain with intercourse: Yes Postcoital bleeding: No Hot flashes: Yes Night sweats: No Vaginal dryness: Yes Exercise: walking Diet: balanced Obstetric History T5 L5 SAB0 TAB0 Ectopic0 Multiple0 Live Births0 PAST MEDICAL HISTORY Diagnosis Date - Abdominal pain, epigastric - Diarrhea - Fibromyalgia - IBS (irritable bowel syndrome) - Mental disorder - Other and unspecified hyperlipidemia - Unspecified hypothyroidism PAST SURGICAL HISTORY Procedure Laterality Date - COLONOSCOPY W/BX 07/27/11 - EGD W/O BRSH SPECIMEN W/BX 07/27/11 - REMOVAL OF TONSILS,<12 Y/O Tonsillectomy FAMILY HISTORY Problem Relation Age of Onset - Diabetes Mother - Diabetes Paternal Grandmother - Cervical Cancer Maternal Grandmother - Cancer Maternal Grandfather bone - Prostate Cancer Father - Hypertension Mother - Heart Mother stent in heart - Heart Father stent in heart - Breast Cancer Paternal Aunt multiple aunts with the disease - Stroke Mother - abdominal aortic aneurysm [Other] [OTHER] Father repaired SOCIAL HISTORY Social History Substance Use Topics - Smoking status: Never Smoker - Smokeless tobacco: Never Used - Alcohol use No REVIEW OF SYSTEMS Abdomen: No abdominal pain, nausea, vomiting, diarrhea, or constipation. No bloating, early satiety, indigestion, or increased flatulence. Bladder: No dysuria, gross hematuria, urinary frequency, urinary urgency, or incontinence Breast: No breast lumps, nipple d/c, overlying skin changes, redness or skin retraction Allergies and current medication updated:Yes EXAM: LMP 11/21/2007 GENERAL: pleasant, female in no apparent distress HEENT: Normocephalic, atraumatic, mucus membranes moist and no lesions NECK: Supple, full range of motion, no adenopathy and thyroid normal DERMATOLOGY: Normal, without lesions, non-icteric and non-hirsute BREAST: soft, symmetric, no dominant mass, normal nipple-areolar complex, no lymphadenopathy and no nipple discharge. Left breast diffusely tender ABDOMEN: soft, non-tender and no masses PELVIC: external genitalia normal, normal Bartholin's glands, urethra, [place]'s glands, no vulvar lesions, no cervical lesions, good vaginal support, physiologic discharge present, normal appearing perineal body and perianal region, atrophic changes BIMANUAL: uterus normal size, shape and consistency, no adnexal masses and non-tender RECTOVAGINAL: rectovaginal exam negative for any masses or nodularity. NEURO: alert and oriented x3,exam grossly non-focal EXTREMITIES: normal ASSESSMENT/PLAN: 1) Health maintenance: Pap/HPV up to date. Mammogram ordered Mammogram up to date Nutrition, exercise and routine health maintenance exams reviewed. Calcium/Vitamin D supplementation information provided. Colon cancer screening: up to date with screening BMD: ordered 2) Follow up one year or sooner as needed Olivia Marsh MD PROGRESS Observed: 09/20/2017 Status: COMPLETED Source: [place] 9:[address] [facility] RE[facility] HNO ID: [id number] Author: Rajeev Jameson Service: (none) Author Type: Physician Type: Progress Notes Filed: 09/20/2017 10:50 AM Note Text: Reason for Visit Patient presents with: Establish Care: xfer from kathryn Jacksonrima Jason is a 62 year old female who presents here today for Above Complaints.. Health Maintenance HEPATITIS C SCREENING HPI Has Gerd which is severe at times, wakes up with a sore throat on certain days. On protonix and not able to get off it. Had BPPV in the past, thinks she may be having recurrence since past week. When her head tilts to the right and back she has dizziness, Usually room spinning and nystagmus sometimes feels naseas at that time. Very busy cannot really go for rehab at this time. Will try exercises at home. Takes elavil which helps with fibro and with sleeping. No problem-specific Assessment AND Plan notes found for this encounter. PAST MEDICAL HISTORY Diagnosis Date - Abdominal pain, epigastric - Diarrhea - Fibromyalgia - IBS (irritable bowel syndrome) - Mental disorder - Other and unspecified hyperlipidemia - Unspecified hypothyroidism PAST SURGICAL HISTORY Procedure Laterality Date - COLONOSCOPY W/BX 07/27/11 - EGD W/O BRSH SPECIMEN W/BX 07/27/11 - REMOVAL OF TONSILS,<12 Y/O Tonsillectomy FAMILY HISTORY Problem Relation Age of Onset - Diabetes Mother - Diabetes Paternal Grandmother - Cervical Cancer Maternal Grandmother - Cancer Maternal Grandfather bone - Prostate Cancer Father - Hypertension Mother - Heart Mother stent in heart - Heart Father stent in heart - Breast Cancer Paternal Aunt multiple aunts with the disease - Stroke Mother - abdominal aortic aneurysm [Other] [OTHER] Father repaired Social History Substance Use Topics - Smoking status: Never Smoker - Smokeless tobacco: Never Used - Alcohol use No Past medical history, appointments, medications, allergies reviewed. Pertinent Lab/Diagnostic Studies are reviewed and discussed today Current Outpatient Prescriptions: - levothyroxine (LEVOXYL) 75 mcg tablet - amitriptyline (ELAVIL) 10 mg tablet - pantoprazole DR (PROTONIX) 20 mg tablet Review of Systems CONSTITUTIONAL: No fevers, chills night sweats, unintended weight loss CARDIOVASCULAR: No chest pain, dyspnea, palpitations, orthopnea, PND, ankle edema. PULM: No dyspnea, unexplained cough. GI: No dysphagia/odynophagia, problematic reflux, constipation, diarrhea, changes in stool habits, hematochezia, melena. : No new urinary complaints, including dysuria, gross hematuria or pyuria. NEURO: No new balance problems, peripheral weakness/paresthesias or numbness of concern. Physical Exam BP 116/82 Pulse 84 Temp 36.4 ?C (97.6 ?F) (Temporal Artery) Resp 14 Ht 156.2 cm (5' 1.5) Wt 59.4 kg (131 lb) LMP 11/21/2007 SpO2 98% BMI 24.35 kg/m2 General appearance: Well appearing, alert, in no acute distress, well nourished. Skin: Skin color, texture, turgor normal, no suspicious rashes or lesions Head: Normocephalic, no masses, lesions, tenderness or abnormalities Eyes: Anicteric sclera. Pupils are equally round and reactive to light. Extraocular movements are intact. Lungs: Lungs clear to auscultation. No wheezing, rhonchi, rales Heart: RRR without murmur, gallop, or rubs. Extremities: No deformities, edema, skin discoloration, clubbing or cyanosis. Good capillary refill. ASSESSMENT/PLAN: 1. Benign paroxysmal positional vertigo of right ear - ICD9: 386.11, ICD10: H81.11 (primary diagnosis) Performed the iman maneuver for her Gave her printed info on doing maneuvers at home 2. Acquired hypothyroidism - ICD9: 244.9, ICD10: E03.9 - Instructed patient on importance of taking on an empty stomach either first thing in the morning or at bedtime. 3. Fibromyalgia - ICD9: 729.1, ICD10: M79.7 4. Multiple thyroid nodules - ICD9: 241.1, ICD10: E04.2 - TSH BLD 5. Mixed hyperlipidemia - ICD9: 272.2, ICD10: E78.2 - good control - Continue current medication. - LIPID PANEL BASIC 6. Fatty liver - ICD9: 571.8, ICD10: K76.0 Discussed her results , cmp is normal , reassured her 7. Gastroesophageal reflux disease, esophagitis presence not specified - ICD9: 530.81, ICD10: K21.9 - Discussed lifestyle modifications including losing weight, limiting caffeine, no meals three hours before sleep and head of bed elevation - RANITIDINE 150 MG TABLET RAJEEV JAMESON MD ALLERGIES ALLERGIES DATE TYPE / CODE NAME / CODE REACTION SEVERITY SOURCE 09/04/2018 Drug No Known Unknown [facility] Allergy/416 Allergies/S95214 Hospital 569084(SNOM 0388(RXNORM) Repository ED CT) Drug NO KNOWN [facility] Class/96576 ALLERGIES Main [place] 1003(SNOMED Repository CT) ENCOUNTERS ENCOUNTERS ADMIT/DISCHARGE ACCOUNT ADMITTING ENCOUNTER LOCATION SOURCE NUMBER CLASS 09/04/2018/09/04/19 [id number] Emergency [address] ing:ED Repository 06/15/2018/06/15/20 [id number] Ambulatory [address] Repository 04/22/2018/04/22/20 [id number] Ambulatory [address] Repository 04/14/2018/04/18/20 [id number] Ambulatory [address] Repository 01/31/2018 [id number] Ambulatory [facility] ing:[facility] Repository 01/31/2018 [id number] Ambulatory [facility] Repository 01/12/2018/07/28/20 [id number] Ambulatory [address] Repository 01/07/2018/01/08/20 [id number] Emergency [address] ing:ED Repository 12/14/2017/12/16/19 [id number] Ambulatory [address] Repository 11/11/2017/11/12/19 [id number] Ambulatory [address] Repository 11/02/2017/11/03/19 [id number] Ambulatory [address] ing:SDCRoom: Repository AC03 11/02/2017 [id number] Ambulatory [facility] Repository 10/27/2017/11/01/19 [id number] Ambulatory [address] Repository 10/26/2017/10/28/19 [id number] Emergency [place] [address] [place] [address] ing:ED Repository 10/21/2017/10/26/19 [id number] Ambulatory [address] Repository 10/05/2017/10/05/19 [id number] Ambulatory [address] Repository 09/20/2017/09/20/19 [id number] Ambulatory [address] Repository PAYERS PAYERS ENCOUNTER GUARANTOR PAYER SUBSCRIBER SOURCE 09/04/2018 ARNOL Po[place] Primary ARNOL M Maulik [id number] Insurance:ANTHEMPolic LE[place]ISDOB: [facility] Number: [id number] Hospital [id number]: (330 [id number] Repository [phone] () Date:[id number] [address]RV: 09/04/2018 Secondary NOT GIVENUNK [place] Insurance:SELF PAY [facility] Number: Effective Repository Date:2018-09-04 01/31/2018 ARNOL Poole Primary R MELE [place] [id number] Insurance:ANTHEMPolic LEWISDOB: [facility] Number: [id number] Hospital [address]Xiw: (330 [id number] Repository [phone] () Date:9559-47-73TI [address] [place] [address]HB: 01/31/2018 Secondary NOT GIVENUNK Maul[place] Insurance:SELF PAY [facility] Number: Effective Repository Date:2018-01-12 01/31/2018 ARNOL Poole Primary R MELEJOSSELYN [place] [id number] Insurance:ANTHEMPolic [facility]ISD[facility] [place] Number: [id number] Hospital [address]Afw: (330 [id number] Repository [phone] () Date:6805-98-67QN [address] [place] [address]YJ: 01/31/2018 Secondary NOT GIVENUNK [place] Insurance:SELF PAY [facility] Number: Effective Repository Date:2018-01-31 01/07/2018 ARNOL Poole Primary R MELE Maul[place] [id number] Insurance:ANTHEMPolic LEWISDOB: [facility] Number: [id number] Hospital 825[address]Jvj: 330 [id number] Repository [phone] () Date:6420-01-91PH [id number] [place] [address]OI: 01/07/2018 Secondary NOT GIVENUNK Maulik Insurance:SELF PAY [facility] Number: Effective Repository Date:2018-01-07 11/02/2017 R MELEJOSSELYN [id number] Primary R ME[address] [place] [address] Insurance:ANTHEMPolic LEWISDOB: [facility] Number: [id number] Hospital 422[address]Nzj: [id number] Repository [phone] Date:4831-00-76YO [address] () [id number] [place] [address]PD: 11/02/2017 Secondary NOT GIVENUNK [place] Insurance:SELF PAY [facility] Number: Effective Repository Date:2017-10-27 11/02/2017 R MELE JASON723 Primary R MELE [place]ul[place] [address] Insurance:ANTHEMPolic LEWISDOB: [facility] Number: [id number] Hospital [address]Dea: [id number] Repository [phone] Date:3257-42-06XP [address] () [place], [place] [address]DG: 11/02/2017 Secondary NOT GIVENUNK Maulik Insurance:SELF PAY [facility] Number: Effective Repository Date:2017-11-02 10/26/2017 R MELEJOSSELYN JASON723 Primary R MELE Maulik [address] Insurance:ANTHEMPolic LEWISDOB: [facility] Number: [id number] Hospital [address]Otx: [id number] Repository [phone] Date:2880-14-19IP [address] ([place]) [place] [address]MM: 10/26/2017 Secondary NOT GIVENUNK [place] Insurance:SELF PAY [facility]: Effective Repository Date:2017-10-26
== END 2018-09-04 03:04 | disposition home or self-care (01) ==
LOC: ED 00:45
PROVIDERS: Emergency Provider Emergency Medicine; Family Provider Internal Medicine; PCP Internal Medicine
DX: I10 Essential (primary) hypertension (principal); F43.0 Acute stress reaction; Z72.820 Sleep deprivation; F41.9 Anxiety disorder, unspecified; E03.9 Hypothyroidism, unspecified
CPT/HCPCS: 70450; 80048; 84484; 85025; 93005; 96360; 99285; J7030

== ENCOUNTER → 2019-01-01 16:50 | Outpatient (CLI) | payer BC, SELFPAY | PROVIDERS: Family Provider Internal Medicine; PCP Internal Medicine; Referring Provider Otolaryngology Otolaryngology/Facial Plastic Surgery; Visit Provider Otolaryngology Otolaryngology/Facial Plastic Surgery | DX: L02.92 Furuncle, unspecified (principal) | CPT/HCPCS: 87070; 87205 ==

== ENCOUNTER 2020-07-21 16:58 | Emergency (ER) | payer BC, SELFPAY ==
[2020-07-21 16:58] VITALS: BP 156/115; PULSE 98; RESP 17; TEMP 36.9; O2SAT 99; BMI 26.6
--- NOTE | 2020-07-21 17:07 | EKG12_ITS ---
Test Reason : CP Blood Pressure : / mmHG Vent. Rate : 095 BPM Atrial Rate : 095 BPM P-R Int : 118 ms QRS Dur : 076 ms QT Int : 354 ms P-R-T Axes : 080 065 054 degrees QTc Int : 444 ms Sinus rhythm with frequent Premature ventricular complexes Nonspecific ST abnormality Abnormal ECG Confirmed by LESTER SAMANO, SARA ([id number]), editorial director ANA MALDONADO ([id number]) on 07/23/2020 1:03:44 PM Referred By: BB Confirmed By:SARA BATISTA MD
[2020-07-21 17:31] LABS: Absolute Lymphocyte Count 2.93 X10^3/uL (0.83-4.51); Absolute Neutrophil Count 3.7 X10^3/uL (2.0-7.7); Basophil# 0.05 X10^3/uL; Basophil% 0.7 % (0-1); Eosinophil# 0.11 X10^3/uL; Eosinophils% 1.5 % (0-5); Hematocrit 38.9 % (37-47); Hemoglobin 13.1 g/dL (12.0-15.0); Lymphocyte # 2.93 X10^3/ul (4.0); Lymphocyte % 39.7 % (19-41); Mean Corp Hgb Conc 33.7 g/dL (32-36); Mean Corpuscular Hgb 29.8 pg (27.0-32.0); Mean Corpuscular Volume 88.6 fL (81-99); Mean Platelet Vol. 10.8 fl (6.2-12.0); Monocyte# 0.58 X10^3/uL; Monocyte% 7.9 % (0-10); NRBC Flagged by Analyzer 0 % (0-5); Neutrophil # 3.68 X10^3/uL (2.7-7.7); Neutrophil % 49.8 % (47-70); Platelet Count 272 K/mm3 (150-450); RBC Distribution Width CV 12.5 % (11.6-14.6); RBC Distribution Width SD 40.8 fl (35.1-43.9); Red Blood Count 4.39 M/mm3 (4.2-5.4); White Blood Count 7.4 K/mm3 (4.4-11.0)
--- NOTE | 2020-07-21 17:34 | ED.DCSUM_ITS ---
History of Present Illness Chief Complaint: Chest Pain Informant: Patient Narrative: Patient is a 65-year-old female with a medical history of fibromyalgia, palpitations on metoprolol who presents to the emergency department for right anterior shoulder/upper chest pain. This has been present over the past 2 to 3 days. She never had this before in the past. She states that she felt her pulse and felt like it was irregular. She denies any associated shortness of breath. She does not know aggravating or relieving factors to her pain. Has not tried anything for this. She denies any leg swelling or calf pain. No history of heart attacks, strokes or DVT/PE. She denies any abdominal pain. No nausea or vomiting. She has not been sick with any cough or fever/chills. Past Medical History - Allergies and Home Meds Allergies/Adverse Reactions: Allergies No Known Allergies Allergy (Verified 07/21/20 16:58) Primary Care Physician: Alysa Donovan MD [Primary Care Provider] - Jose Thompson MD [STAFF PHYSICIAN] - 3-5 Days Prior records reviewed: Yes Smoking Status: Never smoker Review of Systems All systems negative except as indicated General: Denies: Chills, Fever, Sweats Eyes: Denies: Visual changes - bilaterally, Diplopia ENT: Denies: Rhinorrhea, Sore throat Cardiovascular: Reports: Chest pain, Palpitations Respiratory: Denies: Dyspnea, Cough, Dyspnea on exertion Gastrointestinal: Denies: Abdominal pain, Nausea, Vomiting, Diarrhea, Melena, Hematochezia Genitourinary: Denies: Dysuria, Hematuria, Frequency Musculoskeletal: Reports: Extremity Pain - Right anterior shoulder. Denies: Back pain Skin: Denies: Rash, Wounds Neurological: Denies: Headache, Weakness, Numbness Physical Exam Vital Signs/Narrative: Vital Signs Temp Pulse Resp BP Pulse Ox 07/21/20 16:58 98.5 F 98 17 156/115 H 99 Inital Vital Signs reviewed: Yes General: Well nourished, Well developed, No Acute Distress Head: Normocephalic, Atraumatic Eyes: Perrl, EOMI ENT: Moist mucous membranes, No rhinorrhea Neck: Supple, Nontender Cardiovascular: Regular rhythm, No murmurs, Irregular Respiratory: No distress, CTA bilaterally, Chest nontender Abdomen: Soft, Nontender, Nondistended, Normal bowel sounds Back: Nontender, Normal Inspection Extremities: Nontender, No edema. Negative for: Calf Tenderness Skin: Normal color, No rash Neurological: Alert, Oriented x3, Cranial nerves II-XII grossly intact, Normal Strength, Normal Sensation Psychological: Normal affect, Normal Mood Diagnostic/Tx/Re-eval - EKG Initial EKG Interpretation: - - Rate of 95 bpm in sinus rhythm with multiple premature ventricular complexes. Normal intervals. Normal axis. No significant ST elevations or depressions. - Medical Decision Making Patient presents to the ED for right anterior shoulder/upper chest pain and palpitations. Upon arrival to the emergency department she is in no acute distress. She states that she does not want to be here. She had an EKG which showed frequent PVCs although none in sequence. Basic lab work and chest x-ray being obtained. Patient's lab work-up did not reveal any significant acute abnormalities. Troponin within normal limits. She was having frequent PVCs so I did call the on-call accounting intern. They recommended doubling her dose of metoprolol from 25mg to 50 mg. I do not believe that her shoulder pain is referred pain from CAD. Low concern for pulmonary embolism as she is not tachycardic, satting well on room air. She is to follow-up with cardiology and I did make a referral home for her. If she develops any worsening symptoms she is to return to the emergency department. Patient understands and is agreeable this plan. Will discharge home in stable condition. All questions answered. ED Disposition - Plan for ED Patient: Disposition: Home or Assisted Living Diagnosis: Shoulder pain, PVCs (premature ventricular contractions) Instructions: ED Pain, Acute, Uncertain Cause, ED Palpitations Referrals: Alysa Donovan MD [Primary Care Provider] - Jose Thompson MD [STAFF PHYSICIAN] - 3-5 Days Additional Instructions: Please double your dose of metoprolol from 25 mg to 50 mg. Follow-up with your PCP as well as the accounting intern referral given.
--- NOTE | 2020-07-21 17:35 | RAD_ITS ---
STUDY: X-RAY CHEST REASON FOR EXAM: Female, 65 years old. Right sided chest pain x 3 days TECHNIQUE: Frontal view COMPARISON: None. FINDINGS: The lungs are clear and expanded. There is no demonstrated pleural abnormality. Normal size heart. Normal mediastinum and jose david. Normal visualized pulmonary arteries. Calcified aortic arch and descending thoracic aorta. Normal visualized thoracic spine. Normal visualized ribs, clavicles, and shoulders. There is no demonstrated abnormality of the visualized soft tissue structures of the upper abdomen. RAD/Chest 1 View (Portable) IMPRESSION: Normal x-ray examination of the chest. Electronically Signed: Darin Nieves DO at 18:15 EST Tel [phone], Service support ,
[2020-07-21 17:49] LABS: Anion Gap 7 (5-15); BUN 13 mg/dL (7-18); BUN/Creat Ratio 11.3 RATIO (10-20); Calcium,Total 9.4 mg/dL (8.5-10.1); Chloride 114 mmol/L (98-107); Creatinine, Serum 1.15 mg/dL (0.55-1.02); EST Glomerular Filtration Rate 50 mL/min (>60); Est Glom Filt Rate - Afr Amer 61 mL/min (>60); Estimated Creatinine Clearance 37.29 ml/min; Glucose 96 mg/dL (74-106); Magnesium 2.3 mg/dL (1.6-2.6); Sodium Level 145 mmol/L (136-145)
[2020-07-21 18:00] VITALS: BP 165/84; PULSE 87; RESP 12; O2SAT 98
[2020-07-21 19:00] VITALS: BP 143/74; PULSE 84; RESP 17; O2SAT 99
[2020-07-21 20:09] VITALS: BP 146/73; PULSE 71; RESP 14; O2SAT 99
== END 2020-07-21 20:15 | disposition home or self-care (01) ==
PROVIDERS: Emergency Provider Emergency Medicine; PCP Internal Medicine
DX: M25.511 Pain in right shoulder (principal); I49.3 Ventricular premature depolarization; Z79.82 Long term (current) use of aspirin
CPT/HCPCS: 71045; 80048; 83735; 84484; 85025; 93005; 99284; A4216

== ENCOUNTER → 2020-08-28 07:03 | Outpatient (CLI) | payer BC, SELFPAY ==
[2020-08-20 08:21] VITALS: BMI 26.4
--- NOTE | 2020-08-28 07:10 | ECHOD_ITS ---
Reason For Study: CHEST PAIN Procedure This was a 2D Doppler, Color Flow transthoracic echocardiogram. Exam performed in department. Left Ventricle Normal LV size. Left ventricular systolic function is normal. The estimated ejection fraction is 65 %. Stage 1 diastolic dysfunction. No regional wall motion abnormalities noted. Right Ventricle Normal RV size. Normal systolic function. Atria Normal left atrium. Normal right atrium. Mitral Valve Normal mitral valve. Tricuspid Valve Normal tricuspid valve. Mild (1+) tricuspid valve insufficiency. Pulmonary artery systolic pressure is 36 mmHg. Aortic Valve Trisinus/trileaflet aortic valve. Pulmonic Valve Normal pulmonic valve. Great Vessels Normal aortic root. The pulmonary artery is normal size. Inferior vena cava collapse with respiration. Pericardium/Pleural No pericardial effusion. MMode/2D Measurements & Calculations LVIDd: 3.8 cm IVSd: 0.74 cm Ao root diam: 2.3 cm LVIDs: 2.7 cm LVPWd: 0.79 cm RVDd: 2.4 cm FS: 29.4 % LAV(MOD-bp): 31.2 ml LA A4 area: 13.0 cm2 LA dimension(2D): 3.2 cm LAV(MOD-bp) Indexed: 19.2 ml/m2 LAV(MOD-sp2): 30.8 ml LAV(MOD-sp4): 31.8 ml RA A4 area: 8.4 cm2 Time Measurements MV dec time: 0.15 sec Doppler Measurements & Calculations MV E max porfirio: 75.1 cm/sec Lat Peak E' Porfirio: 5.3 cm/sec Med Peak E' Porfirio: 5.0 cm/sec MV A max porfirio: 131.7 cm/sec E/E' lat: 14.2 E/E' med: 14.9 MV E/A: 0.57 MV V2 max: 131.5 cm/sec Ao V2 max: 143.3 cm/sec LV V1 max: 90.8 cm/sec MV max P.9 mmHg Ao max P.2 mmHg LV V1 max P.3 mmHg MV V2 mean: 74.0 cm/sec MV mean P.6 mmHg MV V2 VTI: 22.0 cm PA V2 max: 101.0 cm/sec TR max porfirio: 284.6 cm/sec MV P1/2t-pr_phl: 66.6 msec TR max P.4 mmHg Interpretation Summary Normal LV size. Left ventricular systolic function is normal. The estimated ejection fraction is 65 %. Pulmonary artery systolic pressure is 36 mmHg. Stage 1 diastolic dysfunction. Ordering Physician: Joes Thompson Referring Physician: RAJEEV JAMESON Performed By: Kristi Dunn, RDCS, RVT
--- NOTE | 2020-08-28 16:40 | STRESSREP ---
Stress Test Report Exercise myocardial perfusion stress test. 65-year-old lady with a history of coronary artery disease. Medications Synthroid, aspirin, metoprolol, atorvastatin. Stress protocol: Resting EKG demonstrates normal sinus rhythm with a rate of 95 bpm occasional premature ventricular complexes noted. The patient exercised according to regular Gene protocol for a total duration of 4 minutes and 30 seconds completing 1 minute and 30 seconds into stage II of the Gene protocol the maximum heart rate attained was 179 bpm which was 114% of maximum predicted heart rate the maximum workload was 6.4 metabolic equivalents. Patient maintained sinus rhythm throughout the recording. At rest there were no ST or T wave changes noted to suggest ischemia at peak exercise upsloping ST changes only were noted with no meet the criteria for ischemia. No clinical angina was noted. The test was terminated due to leg fatigue. Myocardial perfusion protocol. 11.6 mCi of technetium 99m sestamibi was injected at rest. Patient exercised for a total duration of 4-1/2 minutes and at peak exercise 33.2 mCi of technetium 99m sestamibi was injected stress images were obtained stress and rest images were reconstructed and compared in the short axis vertical long horizontal long axis. Gated images were also obtained Perfusion SPECT analysis: Review of the stress images demonstrate normal uptake of tracer noted in all areas of the myocardium the resting images similarly demonstrate normal uptake of tracer noted in all areas of myocardium. No areas of reversibility are noted suggest ischemia no previous infarct is noted. Gated SPECT analysis: The gated ejection fraction is 80%. Conclusion: Normal exercise myocardial perfusion stress test at a moderate workload. No arrhythmias noted. Preserved ejection fraction.
== END ==
PROVIDERS: PCP Internal Medicine; Referring Provider Internal Medicine Cardiovascular Disease; Visit Provider Internal Medicine Cardiovascular Disease
DX: R07.9 Chest pain, unspecified (principal); I49.49 Other premature depolarization; I25.10 Atherosclerotic heart disease of native coronary artery without angina pectoris; R00.2 Palpitations
CPT/HCPCS: 78452; 93017; 93225; 93226; 93306; A9500; A4216

== ENCOUNTER 2020-10-21 08:00 | Outpatient (RCR) | payer BC, SELFPAY ==
[2020-08-20 08:21] VITALS: BMI 26.4
[2020-10-21] MEDS: COVID-19 VACC, MRNA(PFIZER)/PF 30 MCG/0.3 ML SYRINGE IM (13:06)
[2020-11-11] MEDS: COVID-19 VACC, MRNA(PFIZER)/PF 30 MCG/0.3 ML SYRINGE IM (13:01)
== END 2021-01-20 23:59 ==
LOC: IMMUN 08:00
PROVIDERS: PCP Internal Medicine; Visit Provider Family Medicine
DX: Z23 Encounter for immunization (principal)
CPT/HCPCS: 0001A; 0002A; 91300

== ENCOUNTER 2021-08-11 21:01 | Emergency (ER) | payer MEDICARE, SELFPAY ==
[2021-08-11 21:02] VITALS: BP 150/99; PULSE 119; RESP 18; TEMP 36.1; O2SAT 100; BMI 26.4
[2021-08-11 22:31] LABS: Absolute Lymphocyte Count 1.26 X10^3/uL (0.83-4.51); Absolute Neutrophil Count 7.4 X10^3/uL (2.0-7.7); Basophil# 0.04 X10^3/uL; Basophil% 0.4 % (0-1); Eosinophil# 0.11 X10^3/uL; Eosinophils% 1.2 % (0-5); Hematocrit 40.8 % (37-47); Hemoglobin 13.7 g/dL (12.0-15.0); Lymphocyte # 1.26 X10^3/ul (0.83-4.51); Lymphocyte % 13.6 % (19-41); Mean Corp Hgb Conc 33.6 g/dL (32-36); Mean Corpuscular Hgb 29.5 pg (27.0-32.0); Mean Corpuscular Volume 87.7 fL (81-99); Mean Platelet Vol. 11.2 fl (6.2-12.0); Monocyte% 4.3 % (0-10); NRBC Flagged by Analyzer 0 % (0-5); Neutrophil # 7.42 X10^3/uL (2.7-7.7); Neutrophil % 80.2 % (47-70); Platelet Count 270 K/mm3 (150-450); RBC Distribution Width CV 12.6 % (11.6-14.6); RBC Distribution Width SD 40.2 fl (35.1-43.9); Red Blood Count 4.65 M/mm3 (4.2-5.4); White Blood Count 9.3 K/mm3 (4.4-11.0)
[2021-08-11 22:46] LABS: Anion Gap 9 (5-15); BUN 12 mg/dL (7-18); BUN/Creat Ratio 13.4 RATIO (10-20); Calcium,Total 9.1 mg/dL (8.5-10.1); Chloride 109 mmol/L (98-107); EST Glomerular Filtration Rate 67 mL/min (>60); Est Glom Filt Rate - Afr Amer 81 mL/min (>60); Estimated Creatinine Clearance 47.03 ml/min; Glucose 114 mg/dL (74-106); Potassium 3.6 mmol/L (3.5-5.1); Sodium Level 144 mmol/L (136-145)
--- NOTE | 2021-08-11 23:44 | EDS_ITS ---
HPI History of Present Illness Chief Complaint: Nausea/Vomiting/Diarrhea Informant: patient Onset/Context/Timing Onset: Today Context: Gradual Onset Timing: Continuous Quality: Cramping Location: Right upper and right lower quadrants Worsened by: Nothing Relieved by: Nothing Narrative Narrative: Patient presents with abdominal pain, nausea, vomiting, and diarrhea that began today. Patient states it is gradually gotten worse throughout the day. Patient states her pain is worse over the right side of her abdomen. Patient describes her pain as cramping. Patient states it has been constant throughout the day. Patient states nothing makes it worse and nothing makes it better. Patient admits to nausea and vomiting. Patient states her emesis is mainly stomach contents. Patient denies any hematemesis or coffee-ground emesis. Patient admits to diarrhea but denies any melena or hematochezia. Patient denies any dysuria or hematuria. Patient states she has had 3 family members who are also ill. [facility] Medical History (Updated 08/12/21 @ 00:[address] Lopez Fuller, DO) Essential (primary) hypertension Fibromyalgia History of kidney stones Hyperlipidemia Hypothyroidism IBS (irritable bowel syndrome) Multinodular goiter Multiple premature ventricular complexes Home Medications levothyroxine 75 mcg PO SUTUTHSA 11/02/13 [History Last Taken 11/01/17 22:30 1] aspirin 81 mg PO DAILY 09/04/18 [History Last Taken Unknown] atorvastatin 20 mg PO DAILY 09/04/18 [History Last Taken Unknown] levothyroxine 50 mcg PO MOWEFR 07/21/20 [History Last Taken Unknown] nitroglycerin 0.4 mg sublingual tablet 0.4 mg SUBLINGUAL Q5-15M PRN 08/11/20 [History Last Taken Unknown] pantoprazole 40 mg tablet,delayed release 40 mg PO DAILY tab 08/11/20 [History Last Taken Unknown] cholecalciferol (vitamin D3) 125 mcg (5,000 unit) capsule 125 mcg PO DAILY 08/20/20 [History Last Taken Unknown] metoprolol succinate 50 mg tablet,extended release 24 hr 50 mg PO DAILY #30 tab 09/03/20 [Rx Last Taken Unknown] amitriptyline 10 mg PO DAILY 08/11/21 [History Last Taken Unknown] famotidine 20 mg PO DAILY 08/11/21 [History Last Taken Unknown] ondansetron 4 mg PO Q8H PRN PRN #10 tab 08/12/21 [Rx Last Taken Unknown] Allergy/AdvReac Type Severity Reaction Status Date / Time No Known Allergies Allergy Verified 08/11/21 21:04 Family History Father CAD (coronary artery disease) coronary stent Cancer prostate Abdominal aortic aneurysm (AAA) AAA repair Mother Cancer coronary stents Hypertension CVA (cerebral vascular accident) Surgical History History of colonoscopy History of esophagogastroduodenoscopy (EGD) History of tonsillectomy Social History Smoking Status: Never smoker alcohol intake: never ROS ROS ED Constitutional Constitutional ED: Denies chills or fever(s) Eyes Eyes: Denies blurry vision or change in vision ENT ENT ED: Denies rhinorrhea or sore throat Cardiovascular Cardiovascular: Denies chest pain or palpitations Respiratory/Chest Respiratory/Chest: Denies cough or dyspnea Gastrointestinal Gastrointestinal: Reports abdominal pain, diarrhea, nausea and vomiting; Denies melena Genitourinary Genitourinary ED: Denies dysuria or hematuria Musculoskeletal Musculoskeletal: Denies back pain or neck pain Integumentary Denies abscess or rash Neurologic Neurologic: Denies headache(s) or weakness Allergic/Immunologic Allergic/Immunologic ED: Denies mouth swelling or urticaria EXAM Physical Exam Const Vital Signs: 08/11/21 21:02 Temperature 96.9 F L Temperature Source Temporal Pulse Rate 119 H Respiratory Rate 18 Blood Pressure 150/99 H Blood Pressure Mean 116 Pulse Ox 100 Oxygen Delivery Method Room Air Positive well nourished and well developed General Appearance ED: well developed HEENT Reports moist mucous membranes Neck supple and no JVD Resp normal respiratory effort and clear to auscultation bilaterally Cardio regular rate, regular rhythm and no murmurs GI normal to inspection, nondistended, normoactive bowel sounds Palpation: soft and tender RLQ and RUQ; Negative for guarding or rebound te nderness present Extremity normal to inspection General Extremety ED: Negative for edema or tenderness General Extremity: Negative for edema Neuro oriented x3, CN's II-XII intact bilaterally and no sensory deficits noted Sensorium / Orientation: alert Motor Exam: strength 5/5 throughout Psych mental status grossly normal Skin no rashes or lesions noted MDM MDM MDM Narrative Medical decision making narrative: Patient was given a dose of Zofran here. Patient was also ordered morphine but she declined this. CBC was within normal limits. Basic metabolic profile and hepatic profile were within normal limits. Urinalysis was ordered but the patient did not want to provide a urine specimen and told the nurse that this is not a urinary tract infection and she does not want a urinalysis. Acute abdominal x-rays were also ordered. Patient did not want these either. Patient was feeling better on reevaluation. Patient was given a prescription for Zofran. Patient was instructed to start with a liquid diet then advance to a bland diet and then to a regular diet as she feels better. Patient was instructed to follow-up with her primary care physician in 5 to 7 days. Patient understood and was agreeable with the plan. All questions were answered. Lab Data Attestation: I reviewed the patient's lab results. Labs: Laboratory Results - last 24 hr 08/11/21 08/11/21 08/11/21 22:15 22:15 22:15 WBC 9.3 RBC 4.65 Hgb 13.7 Hct 40.8 MCV 87.7 MCH 29.5 MCHC 33.6 RDW Std Deviation 40.2 RDW Coeff of Juan F 12.6 Plt Count 270 MPV 11.2 Immature Gran % (Auto) 0.300 Neut % (Auto) 80.2 H Lymph % (Auto) 13.6 L Hardy % (Auto) 4.3 Eos % (Auto) 1.2 Baso % (Auto) 0.4 Absolute Neuts (auto) 7.4 Absolute Lymphs (auto) 1.26 Nucleated RBC % 0 Sodium 144 Potassium 3.6 Chloride 109 H Carbon Dioxide 26.0 Anion Gap 9 BUN 12 Creatinine 0.90 Estim Creat Clear Calc 47.03 Est GFR (MDRD) Af Amer 81 Est GFR (MDRD) Non-Af 67 BUN/Creatinine Ratio 13.4 Glucose 114 H Calcium 9.1 Total Bilirubin 0.70 Direct Bilirubin 0.14 AST 24 ALT 36 Alkaline Phosphatase 104 Total Protein 8.2 Albumin 4.0 Globulin 4.2 Discharge Plan Triage Chief Complaint: Nausea/Vomiting/Diarrhea ED Provider: Lopez Fulelr Dx/Rx/DC Orders Clinical Impression: Nausea vomiting and diarrhea Instructions: ED Gastroenteritis, Viral (Adult) Prescriptions: New ondansetron [ondansetron] 4 MG tablet 4 mg PO Q8H PRN PRN (Reason: Nausea) Qty: 10 RF: 0 No Action pantoprazole 40 mg tablet,delayed release (DR/EC) 40 mg PO DAILY RF: 0 nitroglycerin 0.4 mg tablet, sublingual 0.4 mg SUBLINGUAL Q5-15M PRNRF: 0 cholecalciferol (vitamin D3) 125 mcg (5,000 unit) capsule 125 mcg PO DAILY RF: 0 levothyroxine 75 MCG tablet 75 mcg PO SUTUTHSA RF: 0 atorvastatin 20 MG tablet 20 mg PO DAILY RF: 0 aspirin 81 MG tablet,chewable 81 mg PO DAILY RF: 0 levothyroxine 50 MCG tablet 50 mcg PO MOWEFR RF: 0 famotidine 20 mg tablet 20 mg PO DAILY RF: 0 amitriptyline 10 mg tablet 10 mg PO DAILY RF: 0 metoprolol succinate 50 mg tablet extended release 24 hr 50 mg PO DAILY Qty: 30 RF: 0 Primary Care Provider: Alysa Donovan Referrals: Alysa Donovan MD [Primary Care Provider] - 5-7 Days Disposition Disposition: Home, Self Care
[2021-08-11] MEDS: Ondansetron 4 MG/2 ML Vial IV (23:58)
[2021-08-12 00:19] LABS: AST(SGOT) 24 U/L (15-37); Alanine Aminotransfer ALT/SGPT 36 U/L (13-56); Alkaline Phosphatase 104 U/L (45-117); Bilirubin, Direct 0.14 mg/dL (0.00-0.30); Globulin 4.2 g/dL (2.2-4.2); Protein, Total 8.2 g/dL (6.4-8.2)
--- NOTE | 2021-08-12 00:41 | ED.RN ---
pt refusing morphine and UA. Dr. cheek
== END 2021-08-12 00:53 | disposition home or self-care (01) ==
PROVIDERS: Emergency Provider Emergency Medicine; PCP Internal Medicine
DX: R11.2 Nausea with vomiting, unspecified (principal); R19.7 Diarrhea, unspecified; E03.9 Hypothyroidism, unspecified; I10 Essential (primary) hypertension; E78.5 Hyperlipidemia, unspecified; Z79.82 Long term (current) use of aspirin; Z79.899 Other long term (current) drug therapy; Z79.890 Hormone replacement therapy
CPT/HCPCS: 80048; 80076; 85025; 96374; 99283; A4216; J2405

== ENCOUNTER 2023-03-17 23:46 | Emergency (ER) | payer MEDICARE, SELFPAY ==
[2023-03-17 23:47] VITALS: BP 189/82; PULSE 110; RESP 16; TEMP 36.6; O2SAT 98; BMI 26.6
--- NOTE | 2023-03-17 23:56 | EKG12_ITS ---
Test Reason : CP Blood Pressure : / mmHG Vent. Rate : 102 BPM Atrial Rate : 102 BPM P-R Int : 134 ms QRS Dur : 082 ms QT Int : 344 ms P-R-T Axes : 046 003 041 degrees QTc Int : 448 ms Sinus tachycardia Nonspecific ST abnormality Abnormal ECG Confirmed by HOMER SAMANO, VONDA ([id number]), book or script editor ANA MALDONADO ([id number]) on 03/18/2023 10:09:37 AM Referred By: BB Confirmed By:VONDA CORONEL MD
--- NOTE | 2023-03-17 23:56 | EDS_ITS ---
HPI History of Present Illness Chief Complaint: Chest Pain Informant: patient Narrative Narrative: Patient has been having left-sided nonpleuritic nonradiating chest pain that she cannot describe further for the past couple hours tonight. She has been having episodes like this but not necessarily lasting this long for the past 3-6 weeks. It oftentimes makes her sweaty but no other associated symptoms. No history of coronary disease, stents, blood clots, she takes metoprolol for PVCs and was following with Dr. Bhagat for that, and moved over to Dr. Crocker when he left. Has not seen him in a while she states. Has had several stress test in the past always passed them, the last one was less than 5 years ago. She is a non-smoker. She takes medication for cholesterol, her thyroid, GERD. These episodes seem to occur completely randomly. No jaw, back, arm radiation, palpitations, dyspnea, or recent cough/fevers. No recent travel, leg pain or swelling, history of blood clots, no recent hospitalization or surgery. [facility] Medical History (Updated 03/18/23 @ 01:[address] Shaquille Quiñones MD) Essential (primary) hypertension Fibromyalgia History of kidney stones Hyperlipidemia Hypothyroidism IBS (irritable bowel syndrome) Multinodular goiter Multiple premature ventricular complexes Home Medications levothyroxine 75 mcg tablet 75 mcg PO SUTUTHSA 11/02/13 [History Last Taken 11/01/17 22:30 1] aspirin 81 mg chewable tablet 81 mg PO DAILY 09/04/18 [History Last Taken Unknown] atorvastatin 20 mg tablet 20 mg PO DAILY 09/04/18 [History Last Taken Unknown] levothyroxine 50 mcg tablet 50 mcg PO MOWEFR 07/21/20 [History Last Taken Unknown] nitroglycerin 0.4 mg sublingual tablet 0.4 mg sublingual Q5-15M PRN 08/11/20 [History Last Taken Unknown] pantoprazole 40 mg tablet,delayed release 40 mg PO DAILY 08/11/20 [History Last Taken Unknown] cholecalciferol (vitamin D3) 125 mcg (5,000 unit) capsule 125 mcg PO DAILY 08/20/20 [History Last Taken Unknown] metoprolol succinate 50 mg tablet,extended release 24 hr 50 mg PO DAILY #30 tabs 09/03/20 [Rx Last Taken Unknown] amitriptyline 10 mg tablet 10 mg PO DAILY 08/11/21 [History Last Taken Unknown] famotidine 20 mg tablet 20 mg PO DAILY 08/11/21 [History Last Taken Unknown] ondansetron 4 mg disintegrating tablet 4 mg PO Q8H PRN PRN Nausea #10 tabs 08/12/21 [Rx Last Taken Unknown] Allergy/AdvReac Type Severity Reaction Status Date / Time No Known Allergies Allergy Verified 03/17/23 23:51 Family History Father CAD (coronary artery disease) coronary stent Cancer prostate Abdominal aortic aneurysm (AAA) AAA repair Mother Cancer coronary stents Hypertension CVA (cerebral vascular accident) Surgical History History of colonoscopy History of esophagogastroduodenoscopy (EGD) History of tonsillectomy Social History Smoking Status: Never smoker alcohol intake: never ROS ROS ED Constitutional Constitutional ED: Reports sweats; Denies chills or fever(s) Eyes Eyes: Denies change in vision or diplopia ENT ENT ED: Denies rhinorrhea or sore throat Cardiovascular Cardiovascular: Reports chest pain; Denies palpitations Respiratory/Chest Respiratory/Chest: Denies cough or dyspnea Gastrointestinal Gastrointestinal: Denies abdominal pain, diarrhea, nausea or vomiting Genitourinary Genitourinary ED: Denies dysuria or hematuria Musculoskeletal Musculoskeletal: Denies back pain or neck pain Integumentary Denies abscess or rash Neurologic Neurologic: Denies headache(s), paresthesias or weakness Psychiatric Psychiatric: Reports anxiety and other Details: : she worries about everything ; Denies suicidal thoughts EXAM Physical Exam Const Vital Signs: 03/17/23 23:47 03/17/23 23:52 03/18/23 00:01 Temperature 97.9 F Temperature Source Temporal Pulse Rate 110 H Respiratory Rate 16 Respiratory Effort Normal Non-Labored Blood Pressure 189/82 H Blood Pressure Mean 117 Pulse Ox 98 Oxygen Delivery Method Room Air Room Air 03/18/23 00:47 03/18/23 01:00 03/18/23 02:00 Temperature Temperature Source Pulse Rate 80 66 66 Respiratory Rate 18 15 15 Respiratory Effort Blood Pressure 167/68 H 141/68 H Blood Pressure Mean 101 92 Pulse Ox 97 97 97 Oxygen Delivery Method Room Air Room Air Positive well nourished and well developed General Appearance ED: well developed and NAD HEENT Reports moist mucous membranes normocephalic and atraumatic Eyes PERRL and EOMs intact bilaterally Neck full ROM and supple Resp normal respiratory effort and clear to auscultation bilaterally Cardio regular rate, regular rhythm and no murmurs GI non-tender and non-distended Auscultation: normoactive bowel sounds Palpation: soft Back/Spine no CVA tenderness General Back: other FROM Extremity normal to inspection General Extremety ED: Negative for edema, pulses abnormal or tenderness General Extremity: Negative for edema or pulses abnormal Neuro oriented x3, CN's II-XII intact bilaterally and no sensory deficits noted Sensorium / Orientation: awake and alert Motor Exam: strength 5/5 throughout Skin no rashes or lesions noted and no wounds Heart Score History: Slightly/Non-Suspicious ECG: Normal Age: >/= 65 years Risk Factors: 1 or 2 Risk Factors Troponin: </= Normal Limit Score: 3 MDM MDM MDM Narrative Medical decision making narrative: Chest x-ray 2 views of my interpretation are normal with no signs of pneumothorax or pneumonia or widened mediastinum. Her D-dimer is negative, ruli ng out acute pulmonary embolus as cause for this discomfort. She was hypertensive and tachycardic when she arrived, hence obtaining that test considering pulmonary embolus in the differential diagnosis. I suspect her heart rate was more due to anxiety, they came down spontaneously without treatment, to heart rate of 80 and a repeat blood pressure 167/68. Her chest discomfort resolved without specifically treating it. Her initial troponin is negative, her EKG is unremarkable, plan is to obtain a 2-hour delta and if negative, with a heart score of 3 she can follow-up as an outpatient for what is unlikely acute coronary syndrome. On further discussion she states she has had a lot of indigestion lately and wonders if this could be related to her esophagus which I agree with, we discussed ways to treat that empirically until she follows up and continue taking her PPI which she is already on. She is comfortable with that plan. 2nd trop also in single-digit range; stable for discharge. History & Record Review Additional record(s) reviewed:: Prior outpatient record Lab Data Attestation: I reviewed the patient's lab results. Labs: Laboratory Results - last 24 hr 03/18/23 03/18/23 00:03 02:15 WBC 8.7 RBC 4.47 Hgb 13.1 Hct 39.5 MCV 88.4 MCH 29.3 MCHC 33.2 RDW Std Deviation 41.0 RDW Coeff of Juan F 12.6 Plt Count 281 MPV 10.3 Immature Gran % (Auto) 0.600 Neut % (Auto) 48.5 Lymph % (Auto) 37.7 Warrick % (Auto) 8.4 Eos % (Auto) 3.9 Baso % (Auto) 0.9 Absolute Neuts (auto) 4.2 Absolute Lymphs (auto) 3.27 Nucleated RBC % 0 D-Dimer Quant (PE/DVT) < 0.27 L Sodium 142 Potassium 3.6 Chloride 109 H Carbon Dioxide 26.0 Anion Gap 7 BUN 16 Creatinine 1.14 H Estim Creat Clear Calc 36.14 Est GFR (MDRD) Af Amer 61 Est GFR (MDRD) Non-Af 51 L BUN/Creatinine Ratio 14.0 Glucose 147 H Calcium 9.7 Troponin I High Sens 5 8 Radiography Diagnostic Testing: Clinical Impression(s) from Imaging Studies Chest X-Ray 03/18/23 00:00 IMPRESSION: No radiographic evidence of acute cardiopulmonary disease. Electronically Signed: Ricki Cerda MD at 1:25 EDT Reading Location ID and State: [facility] / [place] Tel , Service support , Rhythm Strip Rhythm Strip: Sinus Tach Rate: 102 Ectopy: None EKG Initial EKG: Attestation: I personally reviewed and interpreted this EKG as follows: Interpretation: No Acute Injury Pattern and Sinus Tachycardia (otherwise nml EKG) Discharge Plan Triage Chief Complaint: Chest Pain ED Provider: Shaquille Quiñones Dx/Rx/DC Orders Clinical Impression: Non-cardiac chest pain Instructions: ED Chest Pain, Noncardiac Prescriptions: No Action pantoprazole 40 mg tablet,delayed release (DR/EC) 40 mg PO DAILY nitroglycerin 0.4 mg tablet, sublingual 0.4 mg SUBLINGUAL Q5-15M PRN Rx Instructions: do not exceed 3 doses per episode cholecalciferol (vitamin D3) 125 mcg (5,000 unit) capsule 125 mcg PO DAILY levothyroxine 75 MCG tablet 75 mcg PO SUTUTHSA atorvastatin 20 MG tablet 20 mg PO DAILY aspirin 81 MG tablet,chewable 81 mg PO DAILY levothyroxine 50 MCG tablet 50 mcg PO MOWEFR famotidine 20 mg tablet 20 mg PO DAILY amitriptyline 10 mg tablet 10 mg PO DAILY Patient Comments: Take 1 tablet by mouth daily at bedtime. ondansetron [ondansetron] 4 MG tablet 4 mg PO Q8H PRN PRN (Reason: Nausea) Qty: 10 0RF metoprolol succinate 50 mg tablet extended release 24 hr 50 mg PO DAILY Qty: 30 0RF Primary Care Provider: CELIA ERESE Referrals: Alysa Donovan MD [Med Staff - Maintenance Advisor] - (Call for follow-up appointment) Disposition Disposition: Home, Self Care
--- NOTE | 2023-03-18 | RAD_ITS ---
INDICATION: chest pain EXAMINATION/TECHNIQUE: X-RAY - XR Chest 2 Views COMPARISON: 07/21/2020 FINDINGS: LINES/DEVICES: None. LUNGS: No consolidation, edema or effusion. No pneumothorax. MEDIASTINUM AND CARDIOVASCULAR STRUCTURES: Cardiac silhouette not enlarged. Central airways and mediastinal contour are unremarkable. BONES AND SOFT TISSUES: Unremarkable. RAD/Chest PA and Lateral IMPRESSION: No radiographic evidence of acute cardiopulmonary disease. Electronically Signed: Ricki Cerda MD at 1:25 EDT ,
[2023-03-18 00:11] LABS: Absolute Lymphocyte Count 3.27 X10^3/uL (0.83-4.51); Absolute Neutrophil Count 4.2 X10^3/uL (2.0-7.7); Basophil# 0.08 X10^3/uL; Basophil% 0.9 % (0-1); Eosinophil# 0.34 X10^3/uL; Eosinophils% 3.9 % (0-5); Hematocrit 39.5 % (37-47); Hemoglobin 13.1 g/dL (12.0-15.0); Lymphocyte # 3.27 X10^3/ul (0.83-4.51); Lymphocyte % 37.7 % (19-41); Mean Corp Hgb Conc 33.2 g/dL (32-36); Mean Corpuscular Hgb 29.3 pg (27.0-32.0); Mean Corpuscular Volume 88.4 fL (81-99); Mean Platelet Vol. 10.3 fl (6.2-12.0); Monocyte# 0.73 X10^3/uL; Monocyte% 8.4 % (0-10); NRBC Flagged by Analyzer 0 % (0-5); Neutrophil # 4.21 X10^3/uL (2.7-7.7); Neutrophil % 48.5 % (47-70); Platelet Count 281 K/mm3 (150-450); RBC Distribution Width CV 12.6 % (11.6-14.6); Red Blood Count 4.47 M/mm3 (4.2-5.4); White Blood Count 8.7 K/mm3 (4.4-11.0)
[2023-03-18 00:22] LABS: D-Dimer Quantitative (DVT/PE) < 0.27 FEU/ug/m (0.27-0.49)
[2023-03-18 00:28] LABS: Anion Gap 7 (5-15); BUN 16 mg/dL (7-18); Calcium,Total 9.7 mg/dL (8.5-10.1); Chloride 109 mmol/L (98-107); Creatinine, Serum 1.14 mg/dL (0.55-1.02); EST Glomerular Filtration Rate 51 mL/min (>60); Est Glom Filt Rate - Afr Amer 61 mL/min (>60); Estimated Creatinine Clearance 36.14 ml/min; Glucose 147 mg/dL (74-106); Potassium 3.6 mmol/L (3.5-5.1); Sodium Level 142 mmol/L (136-145); Troponin-I HS (w/2H Reflex) 5 pg/mL (3.0-54.0)
[2023-03-18 00:47] VITALS: BP 167/68; PULSE 80; RESP 18; O2SAT 97
[2023-03-18 01:00] VITALS: PULSE 66; RESP 15; O2SAT 97
[2023-03-18 02:00] VITALS: BP 141/68; PULSE 66; RESP 15; O2SAT 97
[2023-03-18 02:07] LABS: Reflex Troponin-HS? (from REC) Y
[2023-03-18 02:38] LABS: Troponin-I HS 8 pg/mL (3.0-54.0)
[2023-03-18 02:49] VITALS: BP 142/66; PULSE 64; RESP 17; O2SAT 98
== END 2023-03-18 02:50 | disposition home or self-care (01) ==
PROVIDERS: Emergency Provider Emergency Medicine; PCP Nurse Practitioner; Visit Provider Emergency Medicine
DX: R07.89 Other chest pain (principal); I49.3 Ventricular premature depolarization; E78.5 Hyperlipidemia, unspecified; F41.9 Anxiety disorder, unspecified; I10 Essential (primary) hypertension; Z79.899 Other long term (current) drug therapy
CPT/HCPCS: 71046; 80048; 84484; 85025; 85379; 93005; 99284; A4216